=== PATIENT | male | born 1940 | race Two or more races ===

== ENCOUNTER 2017-11-01 11:41 | Inpatient (IN) | payer OTHER ==
[~2017-11-01] VITALS: Ht 162.6 cm; Wt 77.6 kg
[2017-11-01] VITALS (14 sets, daily range): BP systolic 68–109; BP diastolic 36–87
[2017-11-01] MEDS ORDERED: Naloxone 1mg/ml 2ml ONE (12:10)
[2017-11-01] MEDS ORDERED: Naloxone 1mg/ml 2ml IVP ONE (12:15)
[2017-11-01 12:40] LABS: HEMATOCRIT 28.2 % (42.0-52.0); HEMOGLOBIN 9.1 G/DL (14.2-18.0); MEAN CORPUSCULAR VOLUME 82 FL (80-99); PLATELET COUNT 139 K/UL (150-450); RED BLOOD COUNT 3.45 M/UL (4.70-6.10); RED CELL DISTRIBUTION WIDTH 14.4 % (11.6-14.8); WHITE BLOOD COUNT 16.8 K/UL (4.8-10.8)
[2017-11-01 12:51] LABS: ANION GAP 9 mmol/L (5-15); BLOOD UREA NITROGEN 43 mg/dL (7-18); CARBON DIOXIDE 23 MMOL/L (21-32); CHLORIDE 96 MMOL/L (98-107); CREATININE 3.1 MG/DL (0.55-1.30); POTASSIUM 5.1 MMOL/L (3.5-5.1); SODIUM 128 MMOL/L (136-145)
[2017-11-01 13:06] LABS: ALANINE AMINOTRANSFERASE 12 U/L (12-78); ALBUMIN 2.4 G/DL (3.4-5.0); ALBUMIN/GLOBULIN RATIO 0.7 (1.0-2.7); ALKALINE PHOSPHATASE 63 U/L (46-116); ASPARTATE AMINO TRANSFERASE 13 U/L (15-37); BILIRUBIN,TOTAL 0.7 MG/DL (0.2-1.0); CKMB 0.7 NG/ML (0.0-3.6); CREATINE KINASE 104 U/L (26-308)
[2017-11-01 13:06] LABS: APPEARANCE,URINE CLEAR; BILIRUBIN, URINE NEGATIVE (NEGATIVE); GLUCOSE, URINE (UA) NEGATIVE (NEGATIVE); KETONES,URINE NEGATIVE (NEGATIVE); LEUKOCYTE ESTERASE ,URINE 2+ (NEGATIVE); NITRITE,URINE NEGATIVE (NEGATIVE); PH,URINE 5 (4.5-8.0); PROTEIN,URINE 3+ (NEGATIVE); UROBILINOGEN,URINE NORMAL MG/DL (0.0-1.0)
[2017-11-01 13:15] LABS: COLOR,URINE YELLOW
[2017-11-01] MEDS ORDERED: cefTRIAXone 1 GM in NS 55 ML IVPB ONE (13:15)
[2017-11-01] MEDS ORDERED: Calcium Chloride 100mg/ml Vial IVP ONE (13:30)
[2017-11-01] MEDS: DOPamine 400mg/250ml 250 ML IV SCH ×3 (14:15→23:26)
--- NOTE | 2017-11-01 14:39 | Emergency Room Report ---
History of Present Illness General Chief Complaint: Altered Level of Consciousness Source: Family Member Present Illness HPI Patient presents for altered mental status and confusion lethargy Patient's family reports that 2 days ago he was seen by primary physician put on antibiotics and Flomax for possible prostate infection This morning the found the patient more confused lethargic slow to respond and paramedics were summoned Patient here is minimally arousable to physical stimuli After Narcan he did become more awake patient was on codine for pain medicine Otherwise no change in medications recently Patient has vomited 2 times earlier in the morning initially denied any chest pain However toes and of the stay in the emergency room Family reports that he was having heaviness in the chest area Patient has a balloon prosthesis for erectile dysfunction but no change with that recently patient did have recently difficulty with urination Had also previously complaint of flank pain There was no reports of shortness of breath Patient's history of present illness remains limited as the patient was slow to respond cannot give full history upon arrival Allergies: Coded Allergies: No Known Allergies (Unverified , 11/01/17) Patient History Limited by: medical condition Past Medical History: see triage record Pertinent Family History: unable to obtain Reviewed Nursing Documentation: PMH: Agreed, PSxH: Agreed Nursing Documentation-PMH Hx Hypertension: Yes Hx Diabetes: Yes Hx Gastrointestinal Problems: Yes - GI Bleed Review of Systems All Other Systems: limited - Other than the ones mentioned in the history of present illness all others are reviewed however they do stay limited due to the patient's mental status Physical Exam Vital Signs Date Time Temp Pulse Resp B/P (MAP) Pulse Ox O2 Delivery O2 Flow Rate FiO2 11/01/17 11:37 97.2 60 16 72/42 96 Room Air 15.0 11/01/17 13:41 100 Sp02 EP Interpretation: reviewed, normal, other - However extremely hypotensive General Appearance: severe distress - Patient appears ill lethargic slow to respond Head: normocephalic, atraumatic Eyes: bilateral eye PERRL - Two millimeters bilaterally, sluggish reaction ENT: normal pharynx, other - Patient reports decreased hearing Neck: supple Respiratory: crackles - In both lower lobes no obvious retractions Cardiovascular #1: regular rate, rhythm, other - Patient is edematous in the lower abdomen neck area lower legs in the thigh region also appear edematous Gastrointestinal: soft Genitourinary: no CVA tenderness Musculoskeletal: other - Patient is sluggish in response however no obvious focal deficit, Neurologic: other - She has decreased mentation, he does open his to verbal commands, he has no focal deficits on the extremities, however sluggish Skin: no rash, other - Some edema in the lower abdomen and bilateral legs Lymphatic: no adenopathy Procedures Critical Care Time Critical Care Time 70 minutes for initial critical status multiple reevaluation discussion with family and consultants findings concerning for of life-threatening pathology not including any procedural time, Central Line Central Line : Consent: Verbal Central Line Lumen: triple Maximal Sterile Barrier Tech: yes cap, yes mask, yes sterile gown, yes sterile gloves, yes large sterile sheet, yes hand hygiene, yes chlorhexidine prep Central Line Postion: femoral (R) Anesthesia: Lidocaine cc's of anesthesia: 4 Complications: none Central Line Post Position: sutured Attempts: One Patient Tolerated: Well Complications: None Medical Decision Making Diagnostic Impression: Primary Impression: Hypotension Additional Impressions: Septic shock CHF (congestive heart failure) Hypocalcemia Renal failure ER Course Patient is extremely ill upon presentation Hypotensive, altered Patient's CT head does not show any acute disease Presentation does not appear to be in line with acute stroke The patient is also out of any thrombolytic-type criteria as symptoms started earlier yesterday Patient's over timeline X-ray shows pulmonary congestion patient's clinical findings also shows some fluid overload Kidney function is abnormal There are signs of infectious pathology as well CT abdomen pelvis is show any acute pathology this could not be done with contrast given the patient's kidney function Antibiotics are provided Patient continues on BiPAP and requires pressors Patient is also on multiple medications with possible medication reaction Cardiology is notified patient's primary admitting physician was also notified patient remains critical and admitted to ICU Labs Test 11/01/17 12:20 11/01/17 12:50 11/01/17 13:51 White Blood Count 16.8 K/UL (4.8-10.8) Red Blood Count 3.45 M/UL (4.70-6.10) Hemoglobin 9.1 G/DL (14.2-18.0) Hematocrit 28.2 % (42.0-52.0) Mean Corpuscular Volume 82 FL (80-99) Mean Corpuscular Hemoglobin 26.4 PG (27.0-31.0) Mean Corpuscular Hemoglobin Concent 32.3 G/DL (32.0-36.0) Red Cell Distribution Width 14.4 % (11.6-14.8) Platelet Count 139 K/UL (150-450) Mean Platelet Volume 10.0 FL (6.5-10.1) Neutrophils (%) (Auto) % (45.0-75.0) Lymphocytes (%) (Auto) % (20.0-45.0) Monocytes (%) (Auto) % (1.0-10.0) Eosinophils (%) (Auto) % (0.0-3.0) Basophils (%) (Auto) % (0.0-2.0) Differential Total Cells Counted 100 Neutrophils % (Manual) 90 % (45-75) Lymphocytes % (Manual) 3 % (20-45) Monocytes % (Manual) 7 % (1-10) Eosinophils % (Manual) 0 % (0-3) Basophils % (Manual) 0 % (0-2) Band Neutrophils 0 % (0-8) Platelet Estimate Decreased Platelet Morphology Normal Hypochromasia 1+ Anisocytosis 1+ Sodium Level 128 MMOL/L (136-145) Potassium Level 5.1 MMOL/L (3.5-5.1) Chloride Level 96 MMOL/L (98-107) Carbon Dioxide Level 23 MMOL/L (21-32) Anion Gap 9 mmol/L (5-15) Blood Urea Nitrogen 43 mg/dL (7-18) Creatinine 3.1 MG/DL (0.55-1.30) Estimat Glomerular Filtration Rate mL/min (>60) Glucose Level 217 MG/DL (74-106) Lactic Acid Level 1.80 mmol/L (0.66-2.22) Calcium Level 7.0 MG/DL (8.5-10.1) Total Bilirubin 0.7 MG/DL (0.2-1.0) Aspartate Amino Transf (AST/SGOT) 13 U/L (15-37) Alanine Aminotransferase (ALT/SGPT) 12 U/L (12-78) Alkaline Phosphatase 63 U/L (46-116) Total Creatine Kinase 104 U/L (26-308) Creatine Kinase MB 0.7 NG/ML (0.0-3.6) Creatine Kinase MB Relative Index 0.6 Troponin I 0.000 ng/mL (0.000-0.056) Pro-B-Type Natriuretic Peptide 3043 pg/mL (0-125) Total Protein 6.0 G/DL (6.4-8.2) Albumin 2.4 G/DL (3.4-5.0) Globulin 3.6 g/dL Albumin/Globulin Ratio 0.7 (1.0-2.7) Lipase 88 U/L (73-393) Urine Color Yellow Urine Appearance Clear Urine pH 5 (4.5-8.0) Urine Specific [place] 1.020 (1.005-1.035) Urine Protein 3+ (NEGATIVE) Urine Glucose (UA) Negative (NEGATIVE) Urine Ketones Negative (NEGATIVE) Urine Occult Blood Negative (NEGATIVE) Urine Nitrite Negative (NEGATIVE) Urine Bilirubin Negative (NEGATIVE) Urine Urobilinogen Normal MG/DL (0.0-1.0) Urine Leukocyte Esterase 2+ (NEGATIVE) Urine RBC 0 /HPF (0 - 0) Urine WBC 5-10 /HPF (0 - 0) Urine Squamous Epithelial Cells Occasional /LPF Urine Amorphous Sediment Few /LPF (NONE) Urine Bacteria Few /HPF (NONE) Urine Mucus /LPF (NONE/OCC) Arterial Blood pH 7.370 (7.350-7.450) Arterial Blood Partial Pressure CO2 38.3 mmHg (35.0-45.0) Arterial Blood Partial Pressure O2 111.7 mmHg (75.0-100.0) Arterial Blood HCO3 21.8 mmol/L (22.0-26.0) Arterial Blood Oxygen Saturation 97.8 % (92.0-98.0) Arterial Blood Base Excess -3.0 Bryce Test Positive EKG Diagnostic Results Rate: bradycardiac Rhythm: other ST Segments: other - Nonspecific ST/T-wave changes Rhythm Strip Diag. Results EP Interpretation: yes Rate: 60 Rhythm: NSR, no PVC's, no ectopy Chest X-Ray Diagnostic Results Chest X-Ray Diagnostic Results : Chest X-Ray Ordered: Yes # of Views/Limited/Complete: 1 View Indication: Chest Pain EP Interpretation: Yes Interpretation: no consolidation, no pneumothorax, other - Pulmonary congestion Impression: Other - Pulmonary congestion Electronically Signed by: Wiliam Esposito, CT/MRI/US Diagnostic Results CT/MRI/US Diagnostic Results : Impression CT head: no acute disease CT abdomen pelvis: refer to report for full specific no acute disease Last Vital Signs Date Time Temp Pulse Resp B/P (MAP) Pulse Ox O2 Delivery O2 Flow Rate FiO2 11/01/17 14:03 50 11/01/17 13:41 59 16 Bi-pap 11/01/17 13:41 100 11/01/17 12:38 73/43 15.0 11/01/17 11:37 97.2 Status: improved Disposition: ADMITTED INPATIENT Condition: Critical Referrals: [facility],REFERRING (PCP) WILIAM ESPOSITO D.O. Nov 01, 2017 14:39
[2017-11-01] MEDS ORDERED: METOPROLOL TART50 M1 ORAL (16:28)
[2017-11-01] MEDS ORDERED: PANTOPRAZOLE SO40 MG ORAL (16:28)
[2017-11-01] MEDS ORDERED: TAMSULOSIN HCL0.4 MG ORAL (16:28)
[2017-11-01] MEDS ORDERED: CIPROFLOXACIN500 M2 ORAL (16:28)
[2017-11-01] MEDS ORDERED: ASPIRIN EC81 MG ORAL (16:28)
[2017-11-01] MEDS ORDERED: LANTUS SOL100 UNIT/1 SUBQ (16:28)
[2017-11-01] MEDS ORDERED: AMLODIPINE BESYL5 MG ORAL ×2 (16:28→16:37)
[2017-11-01] MEDS ORDERED: LIPITOR80 MG ORAL (16:37)
[2017-11-01] MEDS ORDERED: GABAPENTIN100 MG ORAL (16:37)
[2017-11-01] MEDS ORDERED: ADALAT20 MG ORAL (16:37)
[2017-11-01] MEDS ORDERED: LISINOPRIL40 MG ORAL (16:37)
[2017-11-01] MEDS ORDERED: OMEPRAZOLE40 M1 ORAL (16:37)
[2017-11-01] MEDS ORDERED: RANEXA500 MG ORAL (16:37)
[2017-11-01] MEDS ORDERED: CLOPIDOGREL75 MG ORAL (16:37)
[2017-11-01] MEDS ORDERED: ACETAMINOPHEN-1 EAC1 ORAL (16:37)
[2017-11-01] MEDS ORDERED: PROAIR HFA8.5 GM INH (16:37)
[2017-11-01] MEDS ORDERED: HYDROCHLOROTH12.5 M2 ORAL (16:37)
[2017-11-01] MEDS ORDERED: METFORMIN HCL1000 M1 ORAL (16:37)
[2017-11-01] MEDS ORDERED: Levophed 4mg/4mL Inj IV ONE (16:53)
[2017-11-01] MEDS: Albuterol 90mcg Inhaler 8gm INH SCH (22:00)
[2017-11-01] MEDS ORDERED: Tylenol #3 tab (300mg/30mg) ORAL PRN (22:00)
[2017-11-01] MEDS: Levemir Flexpen SUBQ SCH (23:18)
[2017-11-01] MEDS: NovoLOG Insulin Flexpen SUBQ SCH (23:19)
[2017-11-02] VITALS (53 sets, daily range): BP systolic 87–121; BP diastolic 32–68
[2017-11-02] MEDS: Sodium Chloride 500ML 500 ML IV SCH ×3 (02:08→22:39)
[2017-11-02] MEDS: Albuterol 90mcg Inhaler 8gm INH SCH ×4 (05:37→21:45)
[2017-11-02 06:11] LABS: HEMATOCRIT 28.1 % (42.0-52.0); HEMOGLOBIN 9.2 G/DL (14.2-18.0); MEAN CORPUSCULAR VOLUME 81 FL (80-99); PLATELET COUNT 159 K/UL (150-450); RED BLOOD COUNT 3.46 M/UL (4.70-6.10); RED CELL DISTRIBUTION WIDTH 14.1 % (11.6-14.8); WHITE BLOOD COUNT 15.6 K/UL (4.8-10.8)
[2017-11-02] MEDS: NovoLOG Insulin Flexpen SUBQ SCH ×3 (06:32→20:32)
[2017-11-02 06:35] LABS: ALANINE AMINOTRANSFERASE 17 U/L (12-78); ALBUMIN 2.6 G/DL (3.4-5.0); ALBUMIN/GLOBULIN RATIO 0.6 (1.0-2.7); ALKALINE PHOSPHATASE 96 U/L (46-116); ANION GAP 12 mmol/L (5-15); ASPARTATE AMINO TRANSFERASE 15 U/L (15-37); BILIRUBIN,TOTAL 0.4 MG/DL (0.2-1.0); BLOOD UREA NITROGEN 60 mg/dL (7-18); CALCIUM 7.8 MG/DL (8.5-10.1); CARBON DIOXIDE 21 MMOL/L (21-32); CHLORIDE 93 MMOL/L (98-107); CREATININE 4.7 MG/DL (0.55-1.30); POTASSIUM 4.5 MMOL/L (3.5-5.1); SODIUM 126 MMOL/L (136-145)
[2017-11-02] MEDS: DOPamine 400mg/250ml 250 ML IV SCH (08:52)
--- NOTE | 2017-11-02 08:57 | Diagnostic Imaging Report ---
Indications: Altered mental status Technique: Spiral acquisitions obtained through the brain. Angled axial and coronal 5 x 5 mm slices were reconstructed. Total dose length product 1404.07 mGycm. CTDI vol(s) 70.38 mGy. Dose reduction achieved using automated exposure control Comparison: None. Findings: No acute intracranial hemorrhage or edema. No mass effect or midline shift. Normal carbajal-white differentiation. There is age-related enlargement of the ventricles and extra-axial CSF spaces. There are old bilateral basal ganglia lacunar infarcts. There is minimal periventricular deep white matter low attenuation. There is extensive ethmoid sinus disease and less extensive sphenoid sinus opacification. The mastoids are clear. There is a calvarium is intact. Impression: Chronic and age-related changes, including old basal ganglia lacunar infarcts Negative for acute intracranial bleed or mass effect This agrees with the preliminary interpretation provided overnight by [facility] teleradiology service. The CT scanner at [facility] is accredited by the [employer] and the scans are performed using protocols designed to limit radiation exposure to as low as reasonably achievable to attain images of sufficient resolution adequate for diagnostic evaluation.
--- NOTE | 2017-11-02 09:05 | Diagnostic Imaging Report ---
Indication: Abdominal pain Technique: Spiral acquisitions obtained through the abdomen and pelvis. No oral contrast utilized, per emergency room physician request No IV contrast utilized, per referring physician request.. Multiplanar reconstructions were generated. Total dose length product 952 mGycm. CTDIvol(s) 19.5 mGy. Dose reduction achieved using automated exposure control Comparison: None Findings: The appendix is normal. There is colonic diverticulosis. No evidence of diverticulitis. No small bowel distention. No free or loculated intraperitoneal fluid is evident. Distal esophagus, stomach, duodenum are unremarkable. Lack of IV contrast limits assessment of the solid organs. There is edema of the gallbladder wall and slight infiltration of the pericholecystic fat. No gallstones are visualized, however. No biliary ductal dilatation. The liver demonstrates a calcification in the capsule adjacent to the left portal vein. It is equivocally mildly enlarged. The pancreas, spleen, adrenals are unremarkable. The kidneys demonstrate perinephric fat stranding and considerable arterial calcification. No focal abnormality or hydronephrosis. No retroperitoneal or mesenteric mass or adenopathy. No pelvic mass or adenopathy. The bladder is nearly empty, containing a Tellez catheter. Small amount of air within the bladder is presumably related to Tellez catheterization. The prostate is somewhat prominent. There is a reservoir for penile prosthesis. The lung bases demonstrate small bilateral pleural effusions, considerable atelectasis and interstitial septal thickening. The heart is enlarged. There are coronary artery calcifications. The bones demonstrate degenerative spondylosis changes. Impression: Gallbladder wall edema and pericholecystic stranding, without CT evidence of cholelithiasis. Findings are concerning for acute cholecystitis, either acalculous or due to occult calculi. Recommend sonographic correlation Bilateral basilar pulmonary parenchymal atelectasis and bilateral pleural effusions. Generalized interstitial septal thickening is concerning for pulmonary edema Cardiomegaly Diverticulosis. No evidence of diverticulitis. Normal: Tellez catheter Penile prosthesis reservoir noted in the pelvis Nonspecific bilateral perinephric fat stranding, significance indeterminate although suspect chronic Borderline cardiomegaly This agrees with the preliminary interpretation provided overnight by [facility] service. The CT scanner at [facility] is accredited by the [employer] and the scans are performed using protocols designed to limit radiation exposure to as low as reasonably achievable to attain images of sufficient resolution adequate for diagnostic evaluation.
--- NOTE | 2017-11-02 09:06 | Diagnostic Imaging Report ---
Indication: Chest pain Technique: One view of the chest Comparison: none Findings: Heart is enlarged. There is diffuse bilateral pulmonary interstitial edema with some airspace consolidation as well. Small pleural effusions seen on recent CT scan are not evident on plain radiograph Impression: Cardiomegaly with congestive heart failure
[2017-11-02] MEDS: Aspirin EC 81mg tab ORAL SCH (09:13)
[2017-11-02] MEDS: Ranolazine 500mg tab ORAL SCH ×2 (09:14→20:30)
[2017-11-02] MEDS ORDERED: NS 500ML ONE ×2 (10:16→18:26)
[2017-11-02] MEDS ORDERED: cefTRIAXone 1 GM in NS 55 ML IVPB SCH (14:00)
--- NOTE | 2017-11-02 14:46 | Infectious Diseases Prog Note ---
Assessment/Plan Assessment/Plan Full consult dictated: A) 1) sepsis, uti, possible cholecystitis, leukocytosis 2) ct noted, arf, chf 3) allergies - negative P) 1) zosyn to cover gu and gi tract 2) check labs 3) check us 4) thank you Subjective Allergies: Coded Allergies: No Known Allergies (Unverified , 11/01/17) Objective Vital Signs Last 24 Hour Vital Signs Date Time Temp Pulse Resp B/P (MAP) Pulse Ox O2 Delivery O2 Flow Rate FiO2 11/02/17 14:00 72 18 96/51 91 Nasal Cannula 4.0 11/02/17 13:30 69 18 105/50 92 Nasal Cannula 4.0 11/02/17 13:00 73 18 92/43 92 Nasal Cannula 4.0 11/02/17 12:30 69 16 96/50 92 Nasal Cannula 4.0 11/02/17 12:00 69 11/02/17 12:00 97.8 91 21 91/39 91 Nasal Cannula 4.0 11/02/17 12:00 91/39 11/02/17 11:30 68 15 90/41 91 Nasal Cannula 4.0 11/02/17 11:00 67 16 99/43 91 Nasal Cannula 4.0 11/02/17 11:00 99/44 11/02/17 10:30 63 18 99/33 92 Nasal Cannula 4.0 11/02/17 10:30 99/33 11/02/17 10:30 99/33 11/02/17 10:00 60 22 105/40 92 Nasal Cannula 4.0 11/02/17 10:00 105/40 11/02/17 10:00 105/40 11/02/17 09:45 67 18 103/45 93 Nasal Cannula 4.0 11/02/17 09:30 68 20 102/44 93 Nasal Cannula 4.0 11/02/17 09:19 Nasal Cannula 11/02/17 09:18 Nasal Cannula 11/02/17 09:15 66 15 102/41 93 Nasal Cannula 4.0 11/02/17 09:00 68 16 104/68 94 Nasal Cannula 4.0 11/02/17 09:00 104/68 11/02/17 09:00 104/68 11/02/17 08:52 102/62 11/02/17 08:52 105/62 11/02/17 08:52 105/62 2 08:45 74 21 102/62 95 Nasal Cannula 4.0 11/02/17 08:30 66 15 103/60 94 Nasal Cannula 4.0 11/02/17 08:15 69 16 101/54 95 Nasal Cannula 4.0 11/02/17 08:00 101/64 11/02/17 08:00 101/68 11/02/17 08:00 98.8 68 15 100/40 94 Nasal Cannula 4.0 11/02/17 08:00 68 11/02/17 07:51 Nasal Cannula 4.0 11/02/17 07:50 96 Nasal Cannula 4.0 11/02/17 07:45 64 19 103/66 95 Nasal Cannula 4.0 11/02/17 07:30 68 20 112/64 98 Nasal Cannula 4.0 11/02/17 07:15 67 18 108/66 96 Nasal Cannula 4.0 11/02/17 07:00 69 21 105/62 95 Nasal Cannula 4.0 11/02/17 07:00 105/62 11/02/17 07:00 105/62 11/02/17 06:00 102/43 11/02/17 06:00 68 14 102/43 95 Nasal Cannula 4.0 11/02/17 05:35 101/43 11/02/17 05:30 68 16 100/54 93 Nasal Cannula 4.0 11/02/17 05:00 69 16 101/43 94 Nasal Cannula 4.0 11/02/17 05:00 101/43 11/02/17 04:30 67 12 94/58 94 Nasal Cannula 4.0 11/02/17 04:00 98.7 67 16 105/44 97 Nasal Cannula 4.0 11/02/17 04:00 67 11/02/17 04:00 105/44 11/02/17 03:30 75 16 115/48 97 Nasal Cannula 4.0 11/02/17 03:00 76 16 112/45 97 Nasal Cannula 4.0 11/02/17 03:00 112/45 11/02/17 02:30 78 16 112/44 94 Nasal Cannula 4.0 11/02/17 02:00 121/45 11/02/17 02:00 80 14 121/45 96 Nasal Cannula 4.0 11/02/17 01:30 71 16 97/41 94 Nasal Cannula 4.0 11/02/17 01:00 98/45 2 01:00 72 16 98/45 94 Nasal Cannula 4.0 11/02/17 00:30 63 14 87/43 92 Nasal Cannula 4.0 11/02/17 00:00 61 11/02/17 00:00 98/47 11/02/17 00:00 97.8 62 19 98/47 94 Nasal Cannula 4.0 11/01/17 23:30 64 17 102/48 90 Nasal Cannula 4.0 11/01/17 23:26 108/51 218 23:24 108/51 18 23:00 61 14 97/47 93 Nasal Cannula 4.0 11/01/17 22:30 64 12 94/59 94 Nasal Cannula 4.0 11/01/17 22:00 69 16 103/46 93 Nasal Cannula 4.0 11/01/17 22:00 103/46 11/01/17 21:30 66 16 86/55 95 Nasal Cannula 4.0 11/01/17 21:08 86/55 11/01/17 21:08 91/49 11/01/17 21:00 67 13 91/49 95 Nasal Cannula 2.0 11/01/17 20:30 65 13 96/40 94 Nasal Cannula 2.0 11/01/17 20:00 61 218 20:00 87/36 218 20:00 61 10 87/36 91 Nasal Cannula 2.0 11/01/17 19:30 73 12 94/36 98 Bi-pap 50 218 19:00 105/41 2/18 18:55 97.4 72 21 98/45 100 Bi-pap 50 2/18 18:30 97.2 74 13 116/41 100 Bi-pap 15.0 50 2/18 18:20 116/41 23/18 18:05 99/39 2/3/18 18:00 109/87 2/18 18:00 74 13 109/87 100 Bi-pap 50 2/18 17:55 101/43 2/3/18 17:50 94/40 2/3/18 17:45 99/38 2/3/18 17:40 97/41 2//18 17:35 92/43 11/01/17 17:30 93/45 11/01/17 17:25 92/49 11/01/17 17:20 100/42 11/01/17 17:15 93/40 11/01/17 17:10 94/42 11/01/17 17:05 74/51 11/01/17 17:00 83/34 11/01/17 16:51 71 19 98 Facial 50 11/01/17 16:45 86/43 11/01/17 16:30 89/37 11/01/17 16:30 73 13 89/37 94 Bi-pap 50 11/01/17 16:15 92/42 11/01/17 16:00 90/52 11/01/17 15:45 84/44 11/01/17 15:30 84/41 11/01/17 15:15 86/43 11/01/17 15:00 83/39 11/01/17 14:50 50 20 98 Facial 50 11/01/17 14:45 71/36 Height (Feet): 5 Height (Inches): 4.00 Weight (Pounds): 187 Microbiology Date/Time Source Procedure Growth Status 11/01/17 12:50 Nasal Nares Influenza Types A,B Antigen (JUNG) - Final Complete Laboratory Tests Test 11/01/17 16:31 11/01/17 20:30 11/02/17 05:55 Arterial Blood pH 7.290 (7.350-7.450) 7.353 (7.350-7.450) Arterial Blood Partial Pressure CO2 40.0 mmHg (35.0-45.0) 35.2 mmHg (35.0-45.0) Arterial Blood Partial Pressure O2 51.0 mmHg (75.0-100.0) L 62.2 mmHg (75.0-100.0) L Arterial Blood HCO3 19.1 mmol/L (22.0-26.0) L 19.1 mmol/L (22.0-26.0) L Arterial Blood Oxygen Saturation 81.7 % (92.0-98.0) L 91.8 % (92.0-98.0) L Arterial Blood Base Excess -6.8 -5.7 Bryce Test Positive Positive White Blood Count 15.6 K/UL (4.8-10.8) H Red Blood Count 3.46 M/UL (4.70-6.10) L Hemoglobin 9.2 G/DL (14.2-18.0) L Hematocrit 28.1 % (42.0-52.0) L Mean Corpuscular Volume 81 FL (80-99) Mean Corpuscular Hemoglobin 26.6 PG (27.0-31.0) L Mean Corpuscular Hemoglobin Concent 32.8 G/DL (32.0-36.0) Red Cell Distribution Width 14.1 % (11.6-14.8) Platelet Count 159 K/UL (150-450) Mean Platelet Volume 10.6 FL (6.5-10.1) H Neutrophils (%) (Auto) % (45.0-75.0) Lymphocytes (%) (Auto) % (20.0-45.0) Monocytes (%) (Auto) % (1.0-10.0) Eosinophils (%) (Auto) % (0.0-3.0) Basophils (%) (Auto) % (0.0-2.0) Differential Total Cells Counted 100 Neutrophils % (Manual) 91 % (45-75) H Lymphocytes % (Manual) 5 % (20-45) L Monocytes % (Manual) 4 % (1-10) Eosinophils % (Manual) 0 % (0-3) Basophils % (Manual) 0 % (0-2) Band Neutrophils 0 % (0-8) Platelet Estimate Adequate Platelet Morphology Normal Hypochromasia 1+ Sodium Level 126 MMOL/L (136-145) L Potassium Level 4.5 MMOL/L (3.5-5.1) Chloride Level 93 MMOL/L (98-107) L Carbon Dioxide Level 21 MMOL/L (21-32) Anion Gap 12 mmol/L (5-15) Blood Urea Nitrogen 60 mg/dL (7-18) H Creatinine 4.7 MG/DL (0.55-1.30) #H Estimat Glomerular Filtration Rate mL/min (>60) Glucose Level 237 MG/DL (74-106) H Calcium Level 7.8 MG/DL (8.5-10.1) L Ionized Calcium (Measured) 1.03 mmol/L (1.10-1.35) L Total Bilirubin 0.4 MG/DL (0.2-1.0) Aspartate Amino Transf (AST/SGOT) 15 U/L (15-37) Alanine Aminotransferase (ALT/SGPT) 17 U/L (12-78) Alkaline Phosphatase 96 U/L (46-116) Total Protein 6.6 G/DL (6.4-8.2) Albumin 2.6 G/DL (3.4-5.0) L Globulin 4.0 g/dL Albumin/Globulin Ratio 0.6 (1.0-2.7) L Current Medications Medications (Trade) Dose Ordered Sig/Marie Route PRN Reason Start Time Stop Time Status Last Admin Dose Admin Acetaminophen/ Codeine Phosphate (Tylenol #3) 2 tab Q6H PRN ORAL For Pain 11/01/17 22:00 11/08/17 21:59 Albuterol Sulfate (Proventil MDI) 1 puff Q6H INH 11/01/17 22:00 12/01/17 21:59 11/02/17 13:01 Aspirin (Ecotrin) 81 mg DAILY ORAL 11/02/17 09:00 12/02/17 08:59 11/02/17 09:13 Atorvastatin Calcium (Lipitor) 80 mg QHS ORAL 11/02/17 21:00 12/02/17 20:59 Ceftriaxone Sodium 1 gm/ Sodium Chloride 55 ml @ 110 mls/hr Q24H IVPB 11/02/17 14:00 11/09/17 13:59 11/02/17 14:19 Chlorhexidine Gluconate (Amna-Hex 2%) 1 applic DAILY@2000 TOPIC 11/02/17 20:00 12/02/17 19:59 Clopidogrel Bisulfate (Plavix) 75 mg DAILY ORAL 11/02/17 09:00 12/02/17 08:59 11/02/17 09:13 Dextrose (Dextrose 50%) STAT PRN IV Hypoglycemia 11/01/17 22:30 12/01/17 22:29 Dopamine HCl/ Dextrose 250 ml @ 0 mls/hr Q24H IV 11/01/17 22:00 12/01/17 21:59 11/02/17 08:52 Gabapentin (Neurontin) 100 mg BID ORAL 11/02/17 09:00 12/02/17 08:59 11/02/17 09:13 Insulin Aspart (NovoLOG) BEFORE MEALS AND HS SUBQ 11/02/17 06:30 12/02/17 06:29 11/02/17 06:32 Insulin Detemir (Levemir) 15 units BEDTIME SUBQ 11/01/17 21:00 12/01/17 20:59 11/01/17 23:18 Norepinephrine Bitartrate 4 mg/ Dextrose 250 ml @ 0 mls/hr Q24H IV 11/01/17 22:00 12/01/17 21:59 11/02/17 05:35 Ondansetron HCl (Zofran) 4 mg Q6H PRN IVP Nausea & Vomiting 11/02/17 02:00 12/02/17 01:59 11/02/17 14:29 Ranolazine (Ranexa ER 500mg) 500 mg EVERY 12 HOURS ORAL 11/02/17 09:00 12/02/17 08:59 11/02/17 09:14 Sodium Chloride 500 ml @ 50 mls/hr Q10H IV 11/02/17 02:00 12/02/17 01:59 11/02/17 12:31 CYRUS ELISE Nov 02, 2017 14:46
[2017-11-02] MEDS: Piperacillin/Tazobactam 3.375 GM in NS 110 ML IVPB SCH (16:13)
[2017-11-02] MEDS ORDERED: Tubing IV Secondary IV ONE (18:26)
[2017-11-02] MEDS ORDERED: Dyna-Hex 2% Top Sol 2oz TOPIC SCH (20:00)
[2017-11-02] MEDS: Levemir Flexpen SUBQ SCH (20:31)
[2017-11-02] MEDS ORDERED: Atorvastatin 80mg tab ORAL SCH (21:00)
[2017-11-02] MEDS ORDERED: Levemir Flexpen SUBQ SCH (21:00)
[2017-11-02] MEDS ORDERED: Sodium Chloride 500ML 500 ML IV ONE ×2 (21:30→23:15)
--- NOTE | 2017-11-02 23:05 | History and Physical Report ---
DATE OF ADMISSION: 11/01/2017 HISTORY OF PRESENT ILLNESS: This is a 77-year-old male who presented to the hospital with confusion and lethargy. Several days ago, the patient was seen by his PCP and started on antibiotics and Flomax for a possible prostate infection. The patient was noted to be confused and lethargic. Paramedics were called and he was brought to the hospital. In the ER here at [facility], he was given Narcan with improvement in his mental status. The patient also admitted to having chest discomfort. PAST MEDICAL HISTORY: The patient's past medical history is notable for penile prosthesis per ED. PAST SURGICAL HISTORY: Previous surgeries, the patient declines. MEDICATIONS: At this time, the patient unable to recall his home medications. His present medications include insulin, aspirin, Plavix, Neurontin, Ranexa. REVIEW OF SYSTEMS: The patient denies any headaches, hematemesis, melena, hematochezia, night sweats, or weight loss. PHYSICAL EXAMINATION: GENERAL: Reveals an obese 77-year-old male. VITAL SIGNS: Blood pressure 105/60, heart rate 70, respirations are 18, he is afebrile, and O2 saturation 95% on 2 L of oxygen. HEENT: Unremarkable. LUNGS: Shows clear breath sounds bilaterally. HEART: Heart sounds normal. ABDOMEN: Soft. EXTREMITIES: There is no edema. NEUROLOGIC: Nonfocal. LABORATORY DATA: Lab testing shows white count 27028, hemoglobin 11.2, platelet count is normal. Creatinine 4.7, BUN 60, glucose 237. Lactic acid is 1.8. Albumin 2.6. IMPRESSION: 1. Renal failure. 2. Septic shock. 3. Altered mental status. 4. Urinary tract infection. 5. Hyponatremia. 6. Malnutrition, moderate. 7. . 8. Diabetes mellitus. DISCUSSION: Admitted to the hospital. The patient has been on pressors. We will hold all antihypertensives. We will resume diabetes monitoring, IV antibiotics. We will consult Urology and Infectious Diseases as well as Cardiology. We will follow as shake loader and enforcement safety officer. IV fluids to be given. We will follow carefully. Robles Jones M.D. DR: Cookie JOB#: [id number] CC:
[2017-11-03] VITALS (18 sets, daily range): BP systolic 108–150; BP diastolic 30–71
[2017-11-03] MEDS ORDERED: Hydromorphone 0.5mg/0.5ml inj IVP PRN ×2 (00:15→12:15)
[2017-11-03] MEDS: Sodium Chloride 500ML 500 ML IV SCH ×3 (00:36→11:22)
[2017-11-03] MEDS: Albuterol 90mcg Inhaler 8gm INH SCH ×3 (01:25→14:00)
--- NOTE | 2017-11-03 02:00 | Consultation ---
DATE OF CONSULTATION: 11/02/2017 INFECTIOUS DISEASES CONSULTATION CONSULTING PHYSICIAN: Nahomy Young M.D. REFERRING PHYSICIAN: Robles Jones M.D. REASON FOR CONSULTATION: Sepsis, shock, UTI, possible cholecystitis. CHIEF COMPLAINT: The patient's chief complaint coming into the hospital is sepsis and shock. HISTORY OF PRESENT ILLNESS: This is a 77-year-old male, who comes to the [facility] and was noted to have low blood pressure systolic in 80s and elevated white count. The patient likely in septic shock. He is in the ICU. He also noted to be in acute renal failure requiring dopamine. The patient's workup shows that he has positive urinalysis, could have urinary tract infection with sepsis and shock, but also the patient has abdominal discomfort and distention. CT scan of abdomen and pelvis showed the following. It showed gallbladder wall edema with pericholecystic stranding. Findings are concerning for acute cholecystitis. Infectious Diseases consultation requested. The patient was placed on Zosyn to cover UTI and cholecystitis. The patient currently is in ICU with a Tellez, renal failure, and on dopamine for renal perfusion. REVIEW OF SYSTEMS: CONSTITUTIONAL: The patient has generalized weakness and fatigue. He is alert and responsive. He has no fevers. He is on dopamine. HEAD AND NECK: No thrush or dysphagia. CARDIAC: No chest pain. GASTROINTESTINAL: He has abdominal distention and discomfort. GENITOURINARY: He has Tellez and decreased urine output. PULMONARY: No congestion, shortness of breath, hemoptysis, or secretions. SKIN: No rashes or itching. EXTREMITIES: No extremity pain. NEUROLOGIC: No seizures. No mention of weight loss, night sweats, or fevers. PAST MEDICAL HISTORY: The patient's past medical history includes the history of the following, hypertension, diabetes. He also has gastrointestinal bleed. He also has anemia at this time. He has also had renal failure, elevated creatinine, decreased urine output. He is hyponatremic. MEDICATIONS: Upon reviewing the MAR, he is on the following medications. He is on Lipitor, he is on Ecotrin, Plavix, Neurontin, he is on insulin, he is on Zofran, he is on sodium chloride, dextrose, he is on acetaminophen, he is on albuterol, norepinephrine, which was stopped. He is on dopamine currently for renal perfusion and renal dosing. He is on insulin. The patient was placed on Zosyn, IV antibiotics. I will discontinue Rocephin. ALLERGIES: No known drug allergies. SOCIAL HISTORY: Negative for smoking, alcohol, or drug abuse. FAMILY HISTORY: Noncontributory. Negative for exposure was cancer allergies. PHYSICAL EXAMINATION: VITAL SIGNS: Temperature is 97.8 degrees, pulse rate 91, respiratory rate 18, blood pressure 96/51, O2 saturation 91% to 92% on 4 liters nasal cannula. GENERAL: The patient is alert and responsive, in no acute distress. Maybe mild shortness of breath. HEAD AND NECK: Oral exam, no thrush. Eye exam, no icterus. Normocephalic. No facial droop. Neck is supple. LUNGS: Few bilateral rhonchi and crackles. No definite rales. HEART: Regular. No gallop or murmur. ABDOMEN: Somewhat distended. No rebound. Positive bowel sounds. SKIN: No rash. MUSCULOSKELETAL: No effusions. LINES: Line sites is without phlebitis. PERIPHERAL VASCULAR: No gangrene. He has some edema in the extremities. NEUROLOGIC: Generalized weakness. Responsive. He is alert and oriented x3. GENITOURINARY: He has a Tellez. Urine is cloudy. LABORATORY DATA: Laboratory data is as follows. White count 15.6, hemoglobin 9.2. White count is as high as 16.8, platelet count . The patient's creatinine is 4.7 and sodium 126. UA had 5 to 10 white blood cells, 2+ leukocyte esterase. CT scan of the abdomen and pelvis showed gallbladder wall edema with pericholecystic stranding concerning for acute cholecystitis. The patient also had parenchymal atelectasis and effusions. The patient also has diverticulosis. He has penile prosthesis and also bilateral perinephric fat stranding. Chest x-ray showed cardiomegaly with CHF. Ultrasound of the abdomen has been ordered. Cultures are pending. Urine culture and blood culture are both ordered. Influenza screen is negative. ASSESSMENT AND PLAN: 1. The patient has sepsis and shock. He came in with systolic blood pressure in the 80s with elevated white count. The patient also came in what looks like altered mental status and confusion initially, he is alert at this time. Continue antibiotics. We will change the patient to Zosyn and discussed with pharmacy about dosing for renal failure. I will continue Zosyn to cover urinary tract infection and also possibly cholecystitis with anaerobic coverage, initially gram-negative coverage. Continue Zosyn to cover urinary tract infection, sepsis, shock, leukocytosis, and also possible cystitis. Check followup labs and chest x-ray. Check ultrasound. The patient may need HIDA scan. Consider Renal evaluation and Gastrointestinal evaluation and possible surgery evaluation. Continue antibiotics. Continue supportive care. 2. Acute renal failure, anemia, Tellez, and intensive care unit care. 3. Diabetes. 4. Hypertension. 5. Possible hyperlipidemia. He is on Lipitor. 6. Hyponatremia. 7. No known allergies. 8. Social history negative. 9. Family history noncontributory. 10. MAR was noted. 11. Case was discussed with RN. 12. Continue treatment per primary consultants. 13. Case was discussed with the patient's family. 14. I will follow. Nahomy Young M.D. DR: Bekah JOB#: [id number] CC: JANNET
--- NOTE | 2017-11-03 02:45 | Progress Note ---
DATE: 11/02/2017 CRITICAL CARE SUBJECTIVE: The patient remains in the intensive care unit. He remains with marginal blood pressure readings and on pressor support. OBJECTIVE: VITAL SIGNS: Blood pressure 99/43, pulse 78, respirations 18, and oxygen saturation on 4 liters 92%. LUNGS: Coarse breath sounds. Scattered rhonchi. HEART: Regular rhythm and rate. Normal S1, S2 with a fourth heart sound. ABDOMEN: Distended. No guarding or rebound. EXTREMITIES: Trace dependent edema. LABORATORY AND DIAGNOSTIC DATA: CAT scan of the abdomen yesterday revealed gallbladder wall edema and pericholecystic stranding. A 2D echocardiogram was read today, notable for normal ejection fraction. Chest x-ray yesterday revealed pulmonary edema and cardiomegaly. Sodium 126, potassium 4.5, chloride 93, bicarb 21, BUN 60, and creatinine 4.7. White count 15.6 and hemoglobin 9.2. ABG yesterday pH 7.35, pCO2 35, and pO2 62. IMPRESSION: 1. Sepsis with shock. 2. Possible acute cholecystitis. 3. Noncardiogenic pulmonary edema. 4. Acute renal failure. 5. Toxic and metabolic encephalopathies. 6. Remains critical and guarded. 7. Hyponatremia. 8. Hypochloremia PLAN: 1. Taper pressors. 2. Continue hydration. 3. No diuretics presently. 4. Antibiotics per Infectious Disease desktop support consultant. 5. Respiratory hygiene. 6. The patient requires intensive care unit care and is at high risk. Gilmer Downing M.D. DR: GE JOB#: [id number] CC:
[2017-11-03 06:14] LABS: HEMATOCRIT 29.4 % (42.0-52.0); HEMOGLOBIN 9.8 G/DL (14.2-18.0); MEAN CORPUSCULAR VOLUME 81 FL (80-99); PLATELET COUNT 179 K/UL (150-450); RED BLOOD COUNT 3.63 M/UL (4.70-6.10); RED CELL DISTRIBUTION WIDTH 14.3 % (11.6-14.8); WHITE BLOOD COUNT 12.7 K/UL (4.8-10.8)
[2017-11-03] MEDS: NovoLOG Insulin Flexpen SUBQ SCH ×4 (06:16→21:00)
[2017-11-03 06:37] LABS: ALANINE AMINOTRANSFERASE 16 U/L (12-78); ALBUMIN 2.6 G/DL (3.4-5.0); ALBUMIN/GLOBULIN RATIO 0.6 (1.0-2.7); ALKALINE PHOSPHATASE 96 U/L (46-116); ANION GAP 13 mmol/L (5-15); ASPARTATE AMINO TRANSFERASE 14 U/L (15-37); BILIRUBIN,TOTAL 0.4 MG/DL (0.2-1.0); BLOOD UREA NITROGEN 61 mg/dL (7-18); CALCIUM 7.4 MG/DL (8.5-10.1); CARBON DIOXIDE 20 MMOL/L (21-32); CHLORIDE 93 MMOL/L (98-107); CREATININE 5.6 MG/DL (0.55-1.30); POTASSIUM 4.5 MMOL/L (3.5-5.1); SODIUM 125 MMOL/L (136-145)
[2017-11-03] MEDS: Aspirin EC 81mg tab ORAL SCH (09:43)
[2017-11-03] MEDS: Ranolazine 500mg tab ORAL SCH ×2 (09:43→21:01)
[2017-11-03] MEDS: Piperacillin/Tazobactam 3.375 GM in NS 110 ML IVPB SCH ×2 (09:44→21:00)
--- NOTE | 2017-11-03 10:00 | Consultation ---
DATE OF CONSULTATION: 11/01/2017 CARDIOLOGY CONSULTATION CONSULTING PHYSICIAN: Gilmer Downing M.D. REQUESTING PHYSICIAN: Robles Jones M.D. REASON FOR CONSULTATION: Shock and congestive heart failure. HISTORY OF PRESENT ILLNESS: The patient was seen in the emergency room where he presented with confusion, lethargy, and altered mentation. Family members report this began 2 days ago and the patient was started on antibiotics for a prostate infection. The symptoms progressed and today the patient was confused and lethargic. He was minimally arousable to physical stimuli. The patient apparently has been on codeine for pain control and did respond to Narco. The patient has had abdominal pain, nausea, and vomiting. He also noted some heaviness in his chest. PAST MEDICAL HISTORY: Includes hypertension, erectile dysfunction with balloon prosthesis, type 2 diabetes mellitus, and history of GI bleeding. MEDICATIONS: Prior to admission, reviewed and reconciled. ALLERGIES: None. SOCIAL HISTORY: Negative for smoking, alcohol, or substance abuse. FAMILY HISTORY: Noncontributory. REVIEW OF SYSTEMS: Not obtainable from the patient at this time. Pertinent data from family members as outlined above. PHYSICAL EXAMINATION: VITAL SIGNS: Blood pressure 72/42, heart rate 60, respiratory rate 16, and afebrile. HEENT: Normocephalic, atraumatic. Conjunctivae pink. Sclerae are anicteric. Oropharynx clear. Mucous membranes dry. NECK: Supple. LUNGS: With coarse breath sounds and rales. CARDIAC: Regular rhythm and rate. Normal S1, S2 with no murmur. ABDOMEN: Soft, distended with ascites. EXTREMITIES: With edema. There is a central line noted in the right femoral region. NEUROLOGIC: Reveals symmetric strength. LABORATORY AND DIAGNOSTIC DATA: White count is 16.8 and hemoglobin 9.1. Chest x-ray with pulmonary venous congestion and cardiomegaly. EKG with sinus rhythm and nonspecific ST-T change. Sodium is 128, potassium 5.1, chloride 96, bicarbonate 23, BUN 43, and creatinine 3.1. Albumin 3.4. Urinalysis with 5 to 10 white cells. ABG, 7.37, 38, and 111. IMPRESSION: 1. Sepsis with shock. 2. Acute diastolic congestive heart failure. 3. Renal failure, possibly acute. 4. History of type 2 diabetes mellitus. 5. History of hypertension. 6. Toxic and metabolic encephalopathies. 7. Condition is critical. 8. Prognosis is guarded. PLAN: The patient is already pancultured with central venous access obtained. Volume resuscitation in progress. We will likely need pressors. BiPAP support. Broad-spectrum antibiotics. Imaging of the abdomen is pending. Echocardiogram is pending. We will follow with you during this hospital course. Gilmer Downing M.D. DR: Luis JOB#: [id number] CC:
--- NOTE | 2017-11-03 10:31 | Pulmonology Progress Note ---
Assessment/Plan Assessment/Plan 1. Renal failure. 2. Septic shock. 3. Altered mental status. 4. Urinary tract infection. 5. Hyponatremia. 6. Malnutrition, moderate. 7. Possible cholecystitis 8. Diabetes mellitus. DISCUSSION: Off pressors now; continue to hold all antihypertensives. I will resume diabetes monitoring, IV antibiotics. I will follow as clin nurse spec and mixing supervisor. IV fluids to be given. Await surgical opinion regarding possible cholecystitis OK to transfer out of ICU Subjective Interval Events: Feeling better; on low flow O2; saturations low 90's Constitutional: Reports: no symptoms HEENT: Repors: no symptoms Respiratory: Reports: no symptoms Cardiovascular: Reports: no symptoms Gastrointestinal/Abdominal: Reports: nausea Genitourinary: Reports: no symptoms Neurologic: Reports: no symptoms Allergies: Coded Allergies: No Known Allergies (Unverified , 11/01/17) Objective Last 24 Hour Vital Signs Date Time Temp Pulse Resp B/P (MAP) Pulse Ox O2 Delivery O2 Flow Rate FiO2 11/03/17 10:00 83 19 147/63 84 11/03/17 09:00 89 21 147/58 88 Non-Rebreather 4.0 11/03/17 08:00 90 11/03/17 08:00 98.7 90 21 136/70 89 Nasal Cannula 4.0 11/03/17 07:23 Non-Rebreather 15.0 100 11/03/17 07:23 95 Non-Rebreather 15.0 100 11/03/17 07:22 92 23 Non-Rebreather 15.0 100 11/03/17 07:21 92 22 95 Non-Rebreather 15.0 100 11/03/17 07:21 92 22 95 Non-Rebreather 15.0 100 11/03/17 07:00 91 21 133/65 95 Non-Rebreather 15.0 100 11/03/17 06:00 88 21 144/71 93 Non-Rebreather 15.0 100 11/03/17 05:00 94 21 150/63 93 Non-Rebreather 15.0 100 11/03/17 04:00 90 11/03/17 04:00 97.8 90 17 115/30 92 Non-Rebreather 15.0 100 11/03/17 03:00 84 15 108/51 93 Non-Rebreather 15.0 100 11/03/17 03:00 108/41 11/03/17 02:30 83 16 114/56 93 Non-Rebreather 15.0 100 11/03/17 02:00 115/50 11/03/17 02:00 81 16 114/50 93 Non-Rebreather 15.0 100 11/03/17 01:30 81 16 116/53 93 Non-Rebreather 15.0 100 11/03/17 01:26 80 14 94 Non-Rebreather 15.0 100 11/03/17 01:23 80 14 94 Non-Rebreather 15.0 100 11/03/17 01:00 80 13 117/50 92 Non-Rebreather 15.0 100 11/03/17 01:00 117/50 11/03/17 00:30 98.4 82 16 109/68 93 Non-Rebreather 15.0 100 11/03/17 00:00 134/54 11/03/17 00:00 104 24 134/54 93 Non-Rebreather 15.0 100 11/03/17 00:00 104 11/02/17 23:30 85 18 112/46 93 Non-Rebreather 15.0 100 11/02/17 23:00 118/49 11/02/17 23:00 86 18 118/49 88 Nasal Cannula 4.0 11/02/17 22:30 84 18 105/41 88 Nasal Cannula 4.0 11/02/17 22:00 105/41 11/02/17 22:00 83 18 101/32 90 Nasal Cannula 4.0 11/02/17 21:46 76 17 92 Nasal Cannula 4.0 36 11/02/17 21:43 76 17 92 Nasal Cannula 4.0 36 11/02/17 21:30 78 18 99/43 92 Nasal Cannula 4.0 11/02/17 21:00 78 18 114/53 91 Nasal Cannula 4.0 11/02/17 21:00 99/40 11/02/17 20:30 78 18 110/51 90 Nasal Cannula 4.0 11/02/17 20:00 79 20 113/45 90 Nasal Cannula 4.0 11/02/17 20:00 79 11/02/17 20:00 113/45 11/02/17 19:32 Nasal Cannula 4.0 36 11/02/17 19:31 92 Nasal Cannula 4.0 36 11/02/17 19:30 98.8 78 20 103/46 92 Nasal Cannula 4.0 11/02/17 19:00 76 17 107/54 92 Nasal Cannula 4.0 11/02/17 19:00 107/54 11/02/17 18:30 73 18 104/54 91 Nasal Cannula 4.0 11/02/17 18:00 76 18 116/46 89 Nasal Cannula 4.0 11/02/17 18:00 100/61 11/02/17 17:30 74 15 95/42 88 Nasal Cannula 4.0 11/02/17 17:00 74 18 103/64 92 Nasal Cannula 4.0 11/02/17 17:00 103/64 11/02/17 16:30 73 19 101/56 92 Nasal Cannula 4.0 11/02/17 16:00 101/56 11/02/17 16:00 98.4 72 20 109/59 96 Nasal Cannula 4.0 11/02/17 16:00 72 11/02/17 15:30 71 18 99/35 92 Nasal Cannula 4.0 11/02/17 15:00 77 22 98/60 91 Nasal Cannula 4.0 11/02/17 15:00 98/60 11/02/17 14:30 68 20 94/55 92 Nasal Cannula 4.0 11/02/17 14:00 96/51 11/02/17 14:00 72 18 96/51 91 Nasal Cannula 4.0 11/02/17 13:30 69 18 105/50 92 Nasal Cannula 4.0 11/02/17 13:06 74 16 94 Nasal Cannula 4.0 11/02/17 13:01 74 16 9 Nasal Cannula 4.0 11/02/17 13:00 92/43 11/02/17 13:00 73 18 92/43 92 Nasal Cannula 4.0 11/02/17 12:30 69 16 96/50 92 Nasal Cannula 4.0 11/02/17 12:00 69 11/02/17 12:00 97.8 91 21 91/39 91 Nasal Cannula 4.0 11/02/17 12:00 91/39 11/02/17 11:30 68 15 90/41 91 Nasal Cannula 4.0 11/02/17 11:00 67 16 99/43 91 Nasal Cannula 4.0 11/02/17 11:00 99/44 11/02/17 10:30 63 18 99/33 92 Nasal Cannula 4.0 11/02/17 10:30 33 11/02/17 10:30 Intake and Output 11/02/17 11/03/17 19:00 07:00 Intake Total 1010.600 ml 1374.36 ml Output Total 346 ml 245 ml Balance 664.600 ml 1129.36 ml Intake Oral 130 ml 30 ml IV Total 880.600 ml 1344.36 ml Output Urine Total 46 ml 245 ml Emesis 300 ml General Appearance: no acute distress HEENT: normocephalic Respiratory/Chest: chest wall non-tender, lungs clear Cardiovascular: normal peripheral pulses, normal rate Abdomen: normal bowel sounds Microbiology Date/Time Source Procedure Growth Status 11/01/17 12:20 Blood Blood Culture - Preliminary NO GROWTH AFTER 24 HOURS Resulted 11/01/17 12:10 Blood Blood Culture - Preliminary NO GROWTH AFTER 24 HOURS Resulted 11/01/17 12:50 Nasal Nares Influenza Types A,B Antigen (JUNG) - Final Complete 11/02/17 19:00 Indwelling Cath Urine Culture - Preliminary NO GROWTH Resulted Laboratory Tests 11/03/17 05:00: White Blood Count 12.7H, Red Blood Count 3.63L, Hemoglobin 9.8L, Hematocrit 29.4L, Mean Corpuscular Volume 81, Mean Corpuscular Hemoglobin 26.9L, Mean Corpuscular Hemoglobin Concent 33.2, Red Cell Distribution Width 14.3, Platelet Count 179, Mean Platelet Volume 10.1, Neutrophils (%) (Auto) , Lymphocytes (%) ( Auto) , Monocytes (%) (Auto) , Eosinophils (%) (Auto) , Basophils (%) (Auto) , Sodium Level 125L, Potassium Level 4.5, Chloride Level 93L, Carbon Dioxide Level 20L, Anion Gap 13, Blood Urea Nitrogen 61H, Creatinine 5.6H, Estimat Glomerular Filtration Rate , Glucose Level 108#H, Hemoglobin A1c 10.4H, Lactic Acid Level 1.40, Calcium Level 7.4L, Total Bilirubin 0.4, Aspartate Amino Transf (AST/SGOT) 14L, Alanine Aminotransferase (ALT/SGPT) 16, Alkaline Phosphatase 96, Pro-B-Type Natriuretic Peptide 8925H, Total Protein 7.0, Albumin 2.6L, Globulin 4.4, Albumin/Globulin Ratio 0.6L Current Medications Medications (Trade) Dose Ordered Sig/Marie Route PRN Reason Start Time Stop Time Status Last Admin Dose Admin Acetaminophen/ Codeine Phosphate (Tylenol #3) 2 tab Q6H PRN ORAL For Pain 11/01/17 22:00 11/08/17 21:59 Albuterol Sulfate (Proventil MDI) 1 puff Q6HRT INH 11/03/17 20:00 12/03/17 19:59 11/03/17 07:20 Aspirin (Ecotrin) 81 mg DAILY ORAL 11/02/17 09:00 12/02/17 08:59 11/03/17 09:43 Atorvastatin Calcium (Lipitor) 80 mg QHS ORAL 11/02/17 21:00 12/02/17 20:59 11/02/17 20:30 Chlorhexidine Gluconate (Amna-Hex 2%) 1 applic DAILY@2000 TOPIC 11/02/17 20:00 12/02/17 19:59 11/02/17 20:29 Clopidogrel Bisulfate (Plavix) 75 mg DAILY ORAL 11/02/17 09:00 12/02/17 08:59 11/03/17 09:44 Dextrose (Dextrose 50%) STAT PRN IV Hypoglycemia 11/01/17 22:30 12/01/17 22:29 Dopamine HCl/ Dextrose 250 ml @ 0 mls/hr Q24H IV 11/01/17 22:00 12/01/17 21:59 11/02/17 08:52 Gabapentin (Neurontin) 100 mg BID ORAL 11/02/17 09:00 12/02/17 08:59 11/03/17 09:44 Hydromorphone HCl (Dilaudid) 0.5 mg Q4H PRN IVP For Pain 11/03/17 00:15 11/10/17 00:14 11/03/17 00:17 Insulin Aspart (NovoLOG) BEFORE MEALS AND HS SUBQ 11/02/17 06:30 12/02/17 06:29 11/02/17 20:32 Insulin Detemir (Levemir) 15 units BEDTIME SUBQ 11/01/17 21:00 12/01/17 20:59 11/02/17 20:31 Norepinephrine Bitartrate 4 mg/ Dextrose 250 ml @ 0 mls/hr Q24H IV 11/01/17 22:00 12/01/17 21:59 11/02/17 05:35 Ondansetron HCl (Zofran) 4 mg Q6H PRN IVP Nausea & Vomiting 11/02/17 02:00 12/02/17 01:59 11/02/17 14:29 Piperacillin Sod/ Tazobactam Sod 3.375 gm/Sodium Chloride 110 ml @ 27.5 mls/hr Q12HR IVPB 11/02/17 16:00 11/09/17 15:59 11/03/17 09:44 Ranolazine (Ranexa ER 500mg) 500 mg EVERY 12 HOURS ORAL 11/02/17 09:00 12/02/17 08:59 11/03/17 09:43 Sodium Chloride 500 ml @ 100 mls/hr Q5H IV 11/03/17 02:00 12/03/17 01:59 11/03/17 04:47 Robles Jones MD Nov 03, 2017 10:31
--- NOTE | 2017-11-03 10:35 | Cardiology Report ---
APPROVED REPORT EXAM: Two-dimensional and M-mode echocardiogram with Doppler and color Doppler. INDICATION Congestive Heart Failure M-Mode DIMENSIONS IVSd1.4 (0.7-1.1cm)Left Atrium (MM)5.4 (1.6-4.0cm) LVDd5.6 (3.5-5.6cm)Aortic Root2.9 (2.0-3.7cm) PWd1.3 (0.7-1.1cm)Aortic Cusp Exc.2.0 (1.5-2.0cm) LVDs3.1 (2.5-4.0cm) PWs2.2 cm Normal left ventricular chamber size, systolic function and wall motion. Left ventricular ejection fraction estimated to be 55-60 %. Mild left ventricular hypertrophy. Anterior Echo-free space, may be due to pericardial fat or effusion. Mild bi-atrial enlargement. Right ventricular chamber sizes is within normal limits. Focal aortic valve sclerosis with adequate cusp excursion. Thickened mitral valve leaflets with normal excursion. Mild mitral annulus and aortic root calcification. Normal pulmonic valve structure. Normal tricuspid valve structure. IVC dilated at 2.0 cm without physiological collapse, estimated RAP is 15 mmHg. A color flow and spectral Doppler study was performed and revealed: Trace aortic insufficiency. Mild mitral regurgitation. Normal left ventricular diastolic function. Mild tricuspid regurgitation. Tricuspid systolic velocities suggests peak right ventricular systolic pressure of 44 mmHg, consistent with mild pulmonary hypertension. Mild pulmonic regurgitation present.
--- NOTE | 2017-11-03 11:25 | Infectious Diseases Prog Note ---
Assessment/Plan Assessment/Plan ASSESSMENT AND PLAN: 1. sepsis, shock, ? uti, ? cholecystitis on ct scan, leukocytosis - zosyn for now - bp better, no pressors - check final cultures - check us - surgery evaluation - check labs and chest x-ray - d/w Dr. Jones 2. Acute renal failure, anemia, Ch, chf/pulmonary edema - ? renal evaluation , cardiology consult noted 3. Diabetes. 4. GIB 5. Possible hyperlipidemia. He is on Lipitor. 6. Hyponatremia. 7. No known allergies. 8. Social history negative. 9. Family history noncontributory. 10. MAR was noted. 11. Case was discussed with RN. 12. Continue treatment per primary consultants. 13. Case was discussed with the patient's family. 14. icu - to be transferred out of icu per RN Subjective Constitutional: Denies: fever Respiratory: Reports: shortness of breath Cardiovascular: Denies: chest pain Gastrointestinal/Abdominal: Denies: nausea, vomiting Genitourinary: Reports: other - + ch Neurologic: Denies: headache Psychiatric: Denies: depression Skin: Denies: rash Hematologic: Denies: bleeding Musculoskeletal: Denies: pain Allergies: Coded Allergies: No Known Allergies (Unverified , 11/01/17) Objective Vital Signs Last 24 Hour Vital Signs Date Time Temp Pulse Resp B/P (MAP) Pulse Ox O2 Delivery O2 Flow Rate FiO2 11/03/17 10:00 83 19 147/63 84 11/03/17 09:00 89 21 147/58 88 Non-Rebreather 4.0 11/03/17 08:00 90 11/03/17 08:00 98.7 90 21 136/70 89 Nasal Cannula 4.0 11/03/17 07:23 Non-Rebreather 15.0 100 11/03/17 07:23 95 Non-Rebreather 15.0 100 11/03/17 07:22 92 23 Non-Rebreather 15.0 100 11/03/17 07:21 92 22 95 Non-Rebreather 15.0 100 11/03/17 07:21 92 22 95 Non-Rebreather 15.0 100 11/03/17 07:00 91 21 133/65 95 Non-Rebreather 15.0 100 11/03/17 06:00 88 21 144/71 93 Non-Rebreather 15.0 100 11/03/17 05:00 94 21 150/63 93 Non-Rebreather 15.0 100 11/03/17 04:00 90 11/03/17 04:00 97.8 90 17 115/30 92 Non-Rebreather 15.0 100 11/03/17 03:00 84 15 108/51 93 Non-Rebreather 15.0 100 11/03/17 03:00 108/41 11/03/17 02:30 83 16 114/56 93 Non-Rebreather 15.0 100 11/03/17 02:00 115/50 11/03/17 02:00 81 16 114/50 93 Non-Rebreather 15.0 100 11/03/17 01:30 81 16 116/53 93 Non-Rebreather 15.0 100 11/03/17 01:26 80 14 94 Non-Rebreather 15.0 100 11/03/17 01:23 80 14 94 Non-Rebreather 15.0 100 11/03/17 01:00 80 13 117/50 92 Non-Rebreather 15.0 100 11/03/17 01:00 117/50 11/03/17 00:30 98.4 82 16 109/68 93 Non-Rebreather 15.0 100 11/03/17 00:00 134/54 11/03/17 00:00 104 24 134/54 93 Non-Rebreather 15.0 100 11/03/17 00:00 104 11/02/17 23:30 85 18 112/46 93 Non-Rebreather 15.0 100 11/02/17 23:00 118/49 11/02/17 23:00 86 18 118/49 88 Nasal Cannula 4.0 11/02/17 22:30 84 18 105/41 88 Nasal Cannula 4.0 11/02/17 22:00 105/41 11/02/17 22:00 83 18 101/32 90 Nasal Cannula 4.0 11/02/17 21:46 76 17 92 Nasal Cannula 4.0 36 11/02/17 21:43 76 17 92 Nasal Cannula 4.0 36 11/02/17 21:30 78 18 99/43 92 Nasal Cannula 4.0 11/02/17 21:00 78 18 114/53 91 Nasal Cannula 4.0 11/02/17 21:00 99/40 11/02/17 20:30 78 18 110/51 90 Nasal Cannula 4.0 11/02/17 20:00 79 20 113/45 90 Nasal Cannula 4.0 11/02/17 20:00 79 11/02/17 20:00 113/45 11/02/17 19:32 Nasal Cannula 4.0 36 11/02/17 19:31 92 Nasal Cannula 4.0 36 11/02/17 19:30 98.8 78 20 103/46 92 Nasal Cannula 4.0 11/02/17 19:00 76 17 107/54 92 Nasal Cannula 4.0 11/02/17 19:00 107/54 11/02/17 18:30 73 18 104/54 91 Nasal Cannula 4.0 11/02/17 18:00 76 18 116/46 89 Nasal Cannula 4.0 11/02/17 18:00 100/61 11/02/17 17:30 74 15 95/42 88 Nasal Cannula 4.0 11/02/17 17:00 74 18 103/64 92 Nasal Cannula 4.0 11/02/17 17:00 103/64 11/02/17 16:30 73 19 101/56 92 Nasal Cannula 4.0 11/02/17 16:00 101/56 11/02/17 16:00 98.4 72 20 109/59 96 Nasal Cannula 4.0 11/02/17 16:00 72 11/02/17 15:30 71 18 99/35 92 Nasal Cannula 4.0 11/02/17 15:00 77 22 98/60 91 Nasal Cannula 4.0 11/02/17 15:00 98/60 11/02/17 14:30 68 20 94/55 92 Nasal Cannula 4.0 11/02/17 14:00 96/51 11/02/17 14:00 72 18 96/51 91 Nasal Cannula 4.0 11/02/17 13:30 69 18 105/50 92 Nasal Cannula 4.0 11/02/17 13:06 74 16 94 Nasal Cannula 4.0 11/02/17 13:01 74 16 9 Nasal Cannula 4.0 11/02/17 13:00 92/43 11/02/17 13:00 73 18 92/43 92 Nasal Cannula 4.0 11/02/17 12:30 69 16 96/50 92 Nasal Cannula 4.0 11/02/17 12:00 69 11/02/17 12:00 97.8 91 21 /39 91 Nasal Cannula 4.0 11/02/17 12:00 /39 11/02/17 11:30 68 15 90/41 91 Nasal Cannula 4.0 Height (Feet): 5 Height (Inches): 4.00 Weight (Pounds): 190 General Appearance: no acute distress HEENT: normocephalic, atraumatic, anicteric, mucous membranes moist, EOMI, supple, no JVD Respiratory/Chest: crackles/rales, rhonchi - bilaterally Cardiovascular: normal rate, regular rhythm, no gallop/murmur, no JVD Abdomen: normal bowel sounds, soft, non tender, no organomegaly, distended, other - no rebound Genitourinary: other - + ch - urine clearer Extremities: no cyanosis Skin: no rash Neurologic/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 Findings are concerning for acute cholecystitis, either acalculous or due to occult calculi. Recommend sonographic correlation Bilateral basilar pulmonary parenchymal atelectasis and bilateral pleural effusions. Generalized interstitial septal thickening is concerning for pulmonary edema Cardiomegaly Diverticulosis. No evidence of diverticulitis. Normal: Ch catheter Penile prosthesis reservoir noted in the pelvis Nonspecific bilateral perinephric fat stranding, significance indeterminate although suspect chronic Borderline cardiomegaly This agrees with the preliminary interpretation provided overnight by [facility] telerad[facility] service. The CT scanner at [facility] is accredited by the [employer] and the scans are performed using protocols designed to limit radiation exposure to as low as reasonably achievable to attain images of sufficient resolution adequate for diagnostic evaluation. Chest x-ray - chf us abdomen - pending Microbiology Date/Time Source Procedure Growth Status 11/01/17 12:20 Blood Blood Culture - Preliminary NO GROWTH AFTER 24 HOURS Resulted 11/01/17 12:10 Blood Blood Culture - Preliminary NO GROWTH AFTER 24 HOURS Resulted 11/01/17 12:50 Nasal Nares Influenza Types A,B Antigen (JUNG) - Final Complete 11/02/17 19:00 Indwelling Cath Urine Culture - Preliminary NO GROWTH Resulted Laboratory Tests Test 11/03/17 05:00 White Blood Count 12.7 K/UL (4.8-10.8) H Red Blood Count 3.63 M/UL (4.70-6.10) L Hemoglobin 9.8 G/DL (14.2-18.0) L Hematocrit 29.4 % (42.0-52.0) L Mean Corpuscular Volume 81 FL (80-99) Mean Corpuscular Hemoglobin 26.9 PG (27.0-31.0) L Mean Corpuscular Hemoglobin Concent 33.2 G/DL (32.0-36.0) Red Cell Distribution Width 14.3 % (11.6-14.8) Platelet Count 179 K/UL (150-450) Mean Platelet Volume 10.1 FL (6.5-10.1) Neutrophils (%) (Auto) % (45.0-75.0) Lymphocytes (%) (Auto) % (20.0-45.0) Monocytes (%) (Auto) % (1.0-10.0) Eosinophils (%) (Auto) % (0.0-3.0) Basophils (%) (Auto) % (0.0-2.0) Sodium Level 125 MMOL/L (136-145) L Potassium Level 4.5 MMOL/L (3.5-5.1) Chloride Level 93 MMOL/L (98-107) L Carbon Dioxide Level 20 MMOL/L (21-32) L Anion Gap 13 mmol/L (5-15) Blood Urea Nitrogen 61 mg/dL (7-18) H Creatinine 5.6 MG/DL (0.55-1.30) H Estimat Glomerular Filtration Rate mL/min (>60) Glucose Level 108 MG/DL (74-106) #H Hemoglobin A1c 10.4 % (4.3-6.0) H Lactic Acid Level 1.40 mmol/L (0.66-2.22) Calcium Level 7.4 MG/DL (8.5-10.1) L Total Bilirubin 0.4 MG/DL (0.2-1.0) Aspartate Amino Transf (AST/SGOT) 14 U/L (15-37) L Alanine Aminotransferase (ALT/SGPT) 16 U/L (12-78) Alkaline Phosphatase 96 U/L (46-116) Pro-B-Type Natriuretic Peptide 8925 pg/mL (0-125) H Total Protein 7.0 G/DL (6.4-8.2) Albumin 2.6 G/DL (3.4-5.0) L Globulin 4.4 g/dL Albumin/Globulin Ratio 0.6 (1.0-2.7) L Current Medications Medications (Trade) Dose Ordered Sig/Marie Route PRN Reason Start Time Stop Time Status Last Admin Dose Admin Acetaminophen/ Codeine Phosphate (Tylenol #3) 2 tab Q6H PRN ORAL For Pain 11/01/17 22:00 11/08/17 21:59 Albuterol Sulfate (Proventil MDI) 1 puff Q6HRT INH 11/03/17 20:00 12/03/17 19:59 11/03/17 07:20 Aspirin (Ecotrin) 81 mg DAILY ORAL 11/02/17 09:00 12/02/17 08:59 11/03/17 09:43 Atorvastatin Calcium (Lipitor) 80 mg QHS ORAL 11/02/17 21:00 12/02/17 20:59 11/02/17 20:30 Chlorhexidine Gluconate (Amna-Hex 2%) 1 applic DAILY@2000 TOPIC 11/02/17 20:00 12/02/17 19:59 11/02/17 20:29 Clopidogrel Bisulfate (Plavix) 75 mg DAILY ORAL 11/02/17 09:00 12/02/17 08:59 11/03/17 09:44 Dextrose (Dextrose 50%) STAT PRN IV Hypoglycemia 11/01/17 22:30 12/01/17 22:29 Dopamine HCl/ Dextrose 250 ml @ 0 mls/hr Q24H IV 11/01/17 22:00 12/01/17 21:59 11/02/17 08:52 Gabapentin (Neurontin) 100 mg BID ORAL 11/02/17 09:00 12/02/17 08:59 11/03/17 09:44 Hydromorphone HCl (Dilaudid) 0.5 mg Q4H PRN IVP For Pain 11/03/17 00:15 11/10/17 00:14 11/03/17 00:17 Insulin Aspart (NovoLOG) BEFORE MEALS AND HS SUBQ 11/02/17 06:30 12/02/17 06:29 11/02/17 20:32 Insulin Detemir (Levemir) 15 units BEDTIME SUBQ 11/01/17 21:00 12/01/17 20:59 11/02/17 20:31 Norepinephrine Bitartrate 4 mg/ Dextrose 250 ml @ 0 mls/hr Q24H IV 11/01/17 22:00 12/01/17 21:59 11/02/17 05:35 Ondansetron HCl (Zofran) 4 mg Q6H PRN IVP Nausea & Vomiting 11/02/17 02:00 12/02/17 01:59 11/02/17 14:29 Piperacillin Sod/ Tazobactam Sod 3.375 gm/Sodium Chloride 110 ml @ 27.5 mls/hr Q12HR IVPB 11/02/17 16:00 11/09/17 15:59 11/03/17 09:44 Ranolazine (Ranexa ER 500mg) 500 mg EVERY 12 HOURS ORAL 11/02/17 09:00 12/02/17 08:59 11/03/17 09:43 Sodium Chloride 500 ml @ 100 mls/hr Q5H IV 11/03/17 02:00 12/03/17 01:59 11/03/17 04:47 CYRUS ELISE Nov 03, 2017 11:25
[2017-11-03] MEDS ORDERED: Sodium Chloride 500ML 500 ML IV SCH (12:15)
--- NOTE | 2017-11-03 14:56 | Consultation ---
History of Present Illness General Date patient seen: Nov 03, 2017 Chief Complaint: Altered Level of Consciousness Reason for Consultation: acute cholecystitis Present Illness HPI Late entry for patient seen prior. 77 year old male presented with septic shock. as per patient and family he started feeling unwell few days prior to admission. He felt weak and tired. Had chills, nausea, and emesis. Day of admission was not looking well so taken to ED for evaluation. On admission noted to be hypotensive, tachy, sob. transferred to ICU for care and management. required pressor support and resuscitation. Noted to have significant leukocytosis. during work up found to have UTI and CT with possible cholecystitis. Surgery called to evaluate for possible etiology of sepsis being abdominal/GB. Allergies: Coded Allergies: No Known Allergies (Unverified , 11/01/17) Medication History Scheduled Albuterol Sulfate* (Proair Hfa*), 1 PUFF INH Q6H, (Reported) Aspirin Ec* (Aspirin Ec*), 81 MG ORAL DAILY, (Reported) Atorvastatin (Lipitor), 80 MG ORAL DAILY, (Reported) Clopidogrel* (Clopidogrel*), 75 MG ORAL DAILY, (Reported) Gabapentin* (Gabapentin*), 100 MG ORAL BID, (Reported) Insulin Glargine (Lantus), 15 SUBQ BEDTIME, (Reported) Ranolazine* (Ranexa*), 500 MG ORAL EVERY 12 HOURS, (Reported) Scheduled PRN Acetaminophen With Codeine (T#3) (Tylenol #3 Tab*), 2 TAB ORAL Q6H PRN for For Pain, (Reported) Discontinued Medications Amlodipine Besylate* (Amlodipine Besylate*), 5 MG ORAL DAILY, (Reported) Discontinued Reason: MD discontinued med Amlodipine Besylate* (Amlodipine Besylate*), 5 MG ORAL DAILY, (Reported) Discontinued Reason: MD discontinued med Ciprofloxacin Hcl* (Ciprofloxacin Hcl*), 500 MG ORAL EVERY 12 HOURS, (Reported) Discontinued Reason: MD discontinued med Hydrochlorothiazide* (Hydrochlorothiazide*), 12.5 MG ORAL DAILY, (Reported) Discontinued Reason: MD discontinued med Lisinopril* (Lisinopril*), 40 MG ORAL DAILY, (Reported) Discontinued Reason: MD discontinued med Metformin Hcl* (Metformin Hcl*), 1,000 MG ORAL DAILY, (Reported) Discontinued Reason: MD discontinued med Metoprolol Tartrate* (Metoprolol Tartrate*), 50 MG ORAL EVERY 12 HOURS, ( Reported) Discontinued Reason: MD discontinued med Nifedipine (Nifedipine*), 60 MG ORAL BID, (Reported) Discontinued Reason: MD discontinued med Omeprazole (Omeprazole), 40 MG ORAL DAILY, (Reported) Discontinued Reason: discontinued med Pantoprazole* (Pantoprazole*), 40 MG ORAL DAILY, (Reported) Discontinued Reason: discontinued med Tamsulosin Hcl (Tamsulosin Hcl*), 0.4 MG ORAL DAILY, (Reported) Discontinued Reason: MD discontinued med Patient History History Provided By: Patient, Family Member, Medical Record, PMD Healthcare decision maker Nelsy Resuscitation status Full Code Advanced Directive on File No Past Medical/Surgical History Past Medical/Surgical History: (1) Pain, abdominal, generalized (2) Nausea & vomiting (3) Dehydration (4) Hypocalcemia (5) CHF (congestive heart failure) (6) Renal failure (7) Hypotension (8) Septic shock Review of Systems Constitutional: Reports: chills, sweats, fever, malaise, weakness Eye: Denies: no symptoms, see HPI, eye pain, blurred vision, tearing, double vision, nose pain, nose congestion, acuity changes, discharge, other ENT: Denies: no symptoms, see HPI, ear pain, ear discharge, nose pain, nose congestion, throat pain, throat swelling, mouth pain, hearing loss, nasal discharge, other Respiratory: Denies: no symptoms, see HPI, cough, orthopnea, shortness of breath, stridor, wheezing, WALKER, sputum, other Cardiovascular: Denies: no symptoms, see HPI, chest pain, edema, palpitations, syncope, PND, other Gastrointestinal: Reports: abdominal pain, nausea, vomiting Genitourinary: Denies: no symptoms, see HPI, discharge, dysuria, frequency, hematuria, pain, retention, incontinence, urgency, vag bleed/dc, other Musculoskeletal: Denies: no symptoms, see HPI, back pain, gout, joint pain, joint swelling, muscle pain, muscle stiffness, other Skin: Denies: no symptoms, see HPI, rash, change in color, change in hair/nails , dryness, lesions, other Psychiatric: Denies: no symptoms, see HPI, prior hx, anxiety, depressed feelings, emotional problems, SI, HI, hallucinations, other Neurological: Denies: no symptoms, see HPI, headache, numbness, paresthesia, seizure, tingling, tremors, focal weakness, syncope, dizziness, other Endocrine: Denies: no symptoms, see HPI, excessive sweating, flushing, intolerance to temperature, increased thirst, increased urine, unexplained weight loss, other Hematologic/Lymphatic: Denies: no symptoms, see HPI, anemia, blood clots, easy bleeding, easy bruising, swollen glands, diathesis, other Physical Exam General Appearance: no apparent distress, alert Lines, tubes and drains: peripheral HEENT: atraumatic, PERRL Neck: supple Respiratory/Chest: chest wall non-tender, no respiratory distress, no accessory muscle use Cardiovascular/Chest: normal peripheral pulses, normal rate, regular rhythm Abdomen: non tender, soft, no organomegaly, no mass, distended Extremities: non-tender, normal inspection, trace edema Skin Exam: normal pigmentation, warm/dry Neurologic: alert, oriented x 3, responsive Last 24 Hour Vital Signs Date Time Temp Pulse Resp B/P (MAP) Pulse Ox O2 Delivery O2 Flow Rate FiO2 11/03/17 14:04 78 24 91 Non-Rebreather 15.0 100 11/03/17 13:55 79 26 87 Venturi Mask 14.0 55 11/03/17 13:33 98.1 81 22 135/68 83 11/03/17 12:00 88 19 146/66 90 11/03/17 12:00 85 11/03/17 11:00 90.4 92 19 149/63 84 11/03/17 10:00 83 19 147/63 84 11/03/17 09:00 89 21 147/58 88 Non-Rebreather 4.0 11/03/17 08:00 90 11/03/17 08:00 98.7 90 21 136/70 89 Nasal Cannula 4.0 11/03/17 07:23 Non-Rebreather 15.0 100 11/03/17 07:23 95 Non-Rebreather 15.0 100 11/03/17 07:22 92 23 Non-Rebreather 15.0 100 11/03/17 07:21 92 22 95 Non-Rebreather 15.0 100 11/03/17 07:21 92 22 95 Non-Rebreather 15.0 100 11/03/17 07:00 91 21 133/65 95 Non-Rebreather 15.0 100 11/03/17 06:00 88 21 144/71 93 Non-Rebreather 15.0 100 11/03/17 05:00 94 21 150/63 93 Non-Rebreather 15.0 100 11/03/17 04:00 90 11/03/17 04:00 97.8 90 17 115/30 92 Non-Rebreather 15.0 100 11/03/17 03:00 84 15 108/51 93 Non-Rebreather 15.0 100 11/03/17 03:00 108/41 11/03/17 02:30 83 16 114/56 93 Non-Rebreather 15.0 100 11/03/17 02:00 115/50 11/03/17 02:00 81 16 114/50 93 Non-Rebreather 15.0 100 11/03/17 01:30 81 16 116/53 93 Non-Rebreather 15.0 100 11/03/17 01:26 80 14 94 Non-Rebreather 15.0 100 11/03/17 01:23 80 14 94 Non-Rebreather 15.0 100 11/03/17 01:00 80 13 117/50 92 Non-Rebreather 15.0 100 11/03/17 01:00 117/50 11/03/17 00:30 98.4 82 16 109/68 93 Non-Rebreather 15.0 100 11/03/17 00:00 134/54 11/03/17 00:00 104 24 134/54 93 Non-Rebreather 15.0 100 11/03/17 00:00 104 11/02/17 23:30 85 18 112/46 93 Non-Rebreather 15.0 100 11/02/17 23:00 118/49 11/02/17 23:00 86 18 118/49 88 Nasal Cannula 4.0 11/02/17 22:30 84 18 105/41 88 Nasal Cannula 4.0 11/02/17 22:00 105/41 11/02/17 22:00 83 18 101/32 90 Nasal Cannula 4.0 11/02/17 21:46 76 17 92 Nasal Cannula 4.0 36 11/02/17 21:43 76 17 92 Nasal Cannula 4.0 36 11/02/17 21:30 78 18 99/43 92 Nasal Cannula 4.0 11/02/17 21:00 78 18 114/53 91 Nasal Cannula 4.0 11/02/17 21:00 99/40 11/02/17 20:30 78 18 110/51 90 Nasal Cannula 4.0 11/02/17 20:00 79 20 113/45 90 Nasal Cannula 4.0 11/02/17 20:00 79 11/02/17 20:00 113/45 11/02/17 19:32 Nasal Cannula 4.0 36 11/02/17 19:31 92 Nasal Cannula 4.0 36 11/02/17 19:30 98.8 78 20 103/46 92 Nasal Cannula 4.0 11/02/17 19:00 76 17 107/54 92 Nasal Cannula 4.0 11/02/17 19:00 107/54 11/02/17 18:30 73 18 104/54 91 Nasal Cannula 4.0 11/02/17 18:00 76 18 116/46 89 Nasal Cannula 4.0 11/02/17 18:00 100/61 11/02/17 17:30 74 15 95/42 88 Nasal Cannula 4.0 11/02/17 17:00 74 18 103/64 92 Nasal Cannula 4.0 11/02/17 17:00 103/64 11/02/17 16:30 73 19 101/56 92 Nasal Cannula 4.0 11/02/17 16:00 101/56 11/02/17 16:00 98.4 72 20 109/59 96 Nasal Cannula 4.0 11/02/17 16:00 72 11/02/17 15:30 71 18 99/35 92 Nasal Cannula 4.0 11/02/17 15:00 77 22 98/60 91 Nasal Cannula 4.0 11/02/17 15:00 98/60 Intake and Output 11/02/17 11/03/17 19:00 07:00 Intake Total 1010.600 ml 1374.36 ml Output Total 346 ml 245 ml Balance 664.600 ml 1129.36 ml Intake Oral 130 ml 30 ml IV Total 880.600 ml 1344.36 ml Output Urine Total 46 ml 245 ml Emesis 300 ml Laboratory Tests Test 11/03/17 05:00 White Blood Count 12.7 K/UL (4.8-10.8) H Red Blood Count 3.63 M/UL (4.70-6.10) L Hemoglobin 9.8 G/DL (14.2-18.0) L Hematocrit 29.4 % (42.0-52.0) L Mean Corpuscular Volume 81 FL (80-99) Mean Corpuscular Hemoglobin 26.9 PG (27.0-31.0) L Mean Corpuscular Hemoglobin Concent 33.2 G/DL (32.0-36.0) Red Cell Distribution Width 14.3 % (11.6-14.8) Platelet Count 179 K/UL (150-450) Mean Platelet Volume 10.1 FL (6.5-10.1) Neutrophils (%) (Auto) % (45.0-75.0) Lymphocytes (%) (Auto) % (20.0-45.0) Monocytes (%) (Auto) % (1.0-10.0) Eosinophils (%) (Auto) % (0.0-3.0) Basophils (%) (Auto) % (0.0-2.0) Sodium Level 125 MMOL/L (136-145) L Potassium Level 4.5 MMOL/L (3.5-5.1) Chloride Level 93 MMOL/L (98-107) L Carbon Dioxide Level 20 MMOL/L (21-32) L Anion Gap 13 mmol/L (5-15) Blood Urea Nitrogen 61 mg/dL (7-18) H Creatinine 5.6 MG/DL (0.55-1.30) H Estimat Glomerular Filtration Rate mL/min (>60) Glucose Level 108 MG/DL (74-106) #H Hemoglobin A1c 10.4 % (4.3-6.0) H Lactic Acid Level 1.40 mmol/L (0.66-2.22) Calcium Level 7.4 MG/DL (8.5-10.1) L Total Bilirubin 0.4 MG/DL (0.2-1.0) Aspartate Amino Transf (AST/SGOT) 14 U/L (15-37) L Alanine Aminotransferase (ALT/SGPT) 16 U/L (12-78) Alkaline Phosphatase 96 U/L (46-116) Pro-B-Type Natriuretic Peptide 8925 pg/mL (0-125) H Total Protein 7.0 G/DL (6.4-8.2) Albumin 2.6 G/DL (3.4-5.0) L Globulin 4.4 g/dL Albumin/Globulin Ratio 0.6 (1.0-2.7) L Microbiology Date/Time Source Procedure Growth Status 11/02/17 19:00 Indwelling Cath Urine Culture - Preliminary NO GROWTH Resulted Height (Feet): 5 Height (Inches): 4.00 Weight (Pounds): 190 Medications Current Medications Medications (Trade) Dose Ordered Sig/Marie Route PRN Reason Start Time Stop Time Status Last Admin Dose Admin Acetaminophen/ Codeine Phosphate (Tylenol #3) 2 tab Q6H PRN ORAL For Pain 11/03/17 16:00 11/08/17 21:59 UNV Albuterol Sulfate (Proventil MDI) 1 puff Q6HRT INH 11/03/17 19:00 12/03/17 18:59 11/03/17 14:00 Aspirin (Ecotrin) 81 mg DAILY ORAL 11/04/17 09:00 12/02/17 08:59 Atorvastatin Calcium (Lipitor) 80 mg QHS ORAL 11/03/17 21:00 12/02/17 20:59 Chlorhexidine Gluconate (Amna-Hex 2%) 1 applic DAILY@2000 TOPIC 11/03/17 20:00 12/02/17 19:59 Clopidogrel Bisulfate (Plavix) 75 mg DAILY ORAL 11/04/17 09:00 12/02/17 08:59 Dextrose (Dextrose 50%) STAT PRN IV Hypoglycemia 11/03/17 13:30 12/01/17 13:29 Gabapentin (Neurontin) 100 mg BID ORAL 11/03/17 18:00 12/02/17 08:59 Hydromorphone HCl (Dilaudid) 0.5 mg Q4H PRN IVP For Pain 11/03/17 12:15 11/10/17 00:14 UNV Insulin Aspart (NovoLOG) BEFORE MEALS AND HS SUBQ 11/03/17 16:30 12/02/17 06:29 Insulin Detemir (Levemir) 15 units BEDTIME SUBQ 11/03/17 21:00 12/01/17 20:59 Ondansetron HCl (Zofran) 4 mg Q6H PRN IVP Nausea & Vomiting 11/03/17 14:00 12/02/17 01:59 Piperacillin Sod/ Tazobactam Sod 3.375 gm/Sodium Chloride 110 ml @ 27.5 mls/hr Q12HR IVPB 11/03/17 21:00 11/09/17 20:59 Ranolazine (Ranexa ER 500mg) 500 mg EVERY 12 HOURS ORAL 11/03/17 21:00 12/02/17 08:59 Sodium Chloride 1,000 ml @ 100 mls/hr Q10H IV 11/03/17 14:00 12/03/17 13:59 Assessment/Plan Problem List: (1) Septic shock Assessment & Plan: 77 year old male presented in septic shock. initially in ICU on pressors but with resuscitation has since weaned off pressors and downgraded. on broad spectrum IV Abx. possible etiology UTI vs cholecystitis vs other. Leukocytosis improving. afebrile, HD stable. Labs reviewed and renal function worsening. on exam abd soft, distended, non tender. CT demonstrated possible acalculous cholecystitis with edema and perichole stranding. Ultrasound completed and similar findings not confirmed. US demonstrates borderline thickening of GB wall, no stones, no distention. Unlikely etiology to be acute acalculous cholecystitis given ultrasound findings. if so, has improved rapidly since CT scan. No acute surgical intervention necessary. will follow exam continue with resuscitation. thank you for this consultation ICD Codes: A41.9 - Sepsis, unspecified organism; R65.21 - Severe sepsis with septic shock SNOMED: [id number] Status: stable Red [place] Nov 03, 2017 14:56
--- NOTE | 2017-11-03 15:19 | Diagnostic Imaging Report ---
Indication: Abnormal renal function tests, vomiting, abdominal distention, abnormal prior CT Technique: Jones-scale and duplex images of the upper abdomen were obtained Comparison: Reference made to CT scan 11/01/2017 Findings: Gallbladder demonstrates borderline wall thickening, gallbladder wall thickness measuring 3 mm. Sonographic Powers sign is negative No stones or pericholecystic fluid Common bile duct measures 10 mm in diameter. No intrahepatic biliary ductal dilatation. Liver demonstrates normal echogenicity, no focal abnormality. Portal vein and hepatic veins are patent. Pancreas is incompletely visualized due to overlying bowel gas, visualized portions are unremarkable. Spleen is unremarkable. Left kidney measures 10.4 cm in length. Right kidney measures 10.6 cm length. Both kidneys demonstrate normal echogenicity. There is no hydronephrosis. No focal abnormality . Abdominal aorta is partially obscured by bowel gas, visualized portions are non-aneurysmal . There are bilateral pleural effusions Impression: Negative for gallstones. There is borderline gallbladder wall thickening, significance uncertain. Consider nuclear medicine hepatobiliary scan if there is high clinical suspicion for acute acalculous cholecystitis Dilated common bile duct, more evident than on prior CT scan of 11/01/2017. Downstream obstruction with excludable. Correlate with liver function tests Bilateral pleural effusions Note inability to visualize portions of the pancreas and abdominal aorta
[2017-11-03] MEDS ORDERED: Tylenol #3 tab (300mg/30mg) ORAL PRN (16:00)
--- NOTE | 2017-11-03 18:21 | Cardiology Report ---
APPROVED REPORT EKG Measurement Heart [id number] Sinus rhythm with 1st degree AV block Otherwise normal ECG
[2017-11-03] MEDS ORDERED: NS 500ML ONE (19:37)
[2017-11-03] MEDS ORDERED: Dyna-Hex 2% Top Sol 2oz TOPIC SCH (20:00)
[2017-11-03] MEDS: Tamsulosin 0.4mg cap ORAL SCH (21:01)
[2017-11-03] MEDS: Atorvastatin 80mg tab ORAL SCH (21:01)
[2017-11-03] MEDS: Levemir Flexpen SUBQ SCH (21:04)
--- NOTE | 2017-11-03 21:52 | General Progress Note ---
Assessment/Plan Problem List: (1) Diabetes mellitus out of control ICD Codes: E11.65 - Type 2 diabetes mellitus with hyperglycemia SNOMED: 71125062, 008093904 (2) Septic shock ICD Codes: A41.9 - Sepsis, unspecified organism; R65.21 - Severe sepsis with septic shock SNOMED: 52769833 (3) Hypotension ICD Codes: I95.9 - Hypotension, unspecified SNOMED: 69370176 Assessment/Plan continue Levemir 15 units qhs continue NISS Subjective Allergies: Coded Allergies: No Known Allergies (Unverified , 11/01/17) Subjective events noted - interval notes reviewed Objective Last 24 Hour Vital Signs Date Time Temp Pulse Resp B/P (MAP) Pulse Ox O2 Delivery O2 Flow Rate FiO2 11/03/17 19:41 Non-Rebreather 15.0 100 11/03/17 19:41 92 Non-Rebreather 15.0 100 11/03/17 19:40 93 22 Non-Rebreather 15.0 100 11/03/17 16:00 77 11/03/17 14:04 78 24 91 Non-Rebreather 15.0 100 11/03/17 13:55 79 26 87 Venturi Mask 14.0 55 11/03/17 13:33 98.1 81 22 135/68 83 11/03/17 12:00 88 19 146/66 90 11/03/17 12:00 85 11/03/17 11:00 90.4 92 19 149/63 84 11/03/17 10:00 83 19 147/63 84 11/03/17 09:00 89 21 147/58 88 Non-Rebreather 4.0 11/03/17 08:00 90 11/03/17 08:00 98.7 90 21 136/70 89 Nasal Cannula 4.0 11/03/17 07:23 Non-Rebreather 15.0 100 11/03/17 07:23 95 Non-Rebreather 15.0 100 11/03/17 07:22 92 23 Non-Rebreather 15.0 100 11/03/17 07:21 92 22 95 Non-Rebreather 15.0 100 11/03/17 07:21 92 22 95 Non-Rebreather 15.0 100 11/03/17 07:00 91 21 133/65 95 Non-Rebreather 15.0 100 11/03/17 06:00 88 21 144/71 93 Non-Rebreather 15.0 100 11/03/17 05:00 94 21 150/63 93 Non-Rebreather 15.0 100 11/03/17 04:00 90 11/03/17 04:00 97.8 90 17 115/30 92 Non-Rebreather 15.0 100 11/03/17 03:00 84 15 108/51 93 Non-Rebreather 15.0 100 11/03/17 03:00 108/41 11/03/17 02:30 83 16 114/56 93 Non-Rebreather 15.0 100 11/03/17 02:00 115/50 11/03/17 02:00 81 16 114/50 93 Non-Rebreather 15.0 100 11/03/17 01:30 81 16 116/53 93 Non-Rebreather 15.0 100 11/03/17 01:26 80 14 94 Non-Rebreather 15.0 100 11/03/17 01:23 80 14 94 Non-Rebreather 15.0 100 11/03/17 01:00 80 13 117/50 92 Non-Rebreather 15.0 100 11/03/17 01:00 117/50 11/03/17 00:30 98.4 82 16 109/68 93 Non-Rebreather 15.0 100 11/03/17 00:00 134/54 11/03/17 00:00 104 24 134/54 93 Non-Rebreather 15.0 100 11/03/17 00:00 104 11/02/17 23:30 85 18 112/46 93 Non-Rebreather 15.0 100 11/02/17 23:00 118/49 11/02/17 23:00 86 18 118/49 88 Nasal Cannula 4.0 11/02/17 22:30 84 18 105/41 88 Nasal Cannula 4.0 11/02/17 22:00 105/41 11/02/17 22:00 83 18 101/32 90 Nasal Cannula 4.0 Intake and Output 11/02/17 11/03/17 19:00 07:00 Intake Total 1010.600 ml 1374.36 ml Output Total 346 ml 245 ml Balance 664.600 ml 1129.36 ml Intake Oral 130 ml 30 ml IV Total 880.600 ml 1344.36 ml Output Urine Total 46 ml 245 ml Emesis 300 ml Laboratory Tests 11/03/17 05:00: White Blood Count 12.7H, Red Blood Count 3.63L, Hemoglobin 9.8L, Hematocrit 29.4L, Mean Corpuscular Volume 81, Mean Corpuscular Hemoglobin 26.9L, Mean Corpuscular Hemoglobin Concent 33.2, Red Cell Distribution Width 14.3, Platelet Count 179, Mean Platelet Volume 10.1, Neutrophils (%) (Auto) , Lymphocytes (%) ( Auto) , Monocytes (%) (Auto) , Eosinophils (%) (Auto) , Basophils (%) (Auto) , Sodium Level 125L, Potassium Level 4.5, Chloride Level 93L, Carbon Dioxide Level 20L, Anion Gap 13, Blood Urea Nitrogen 61H, Creatinine 5.6H, Estimat Glomerular Filtration Rate , Glucose Level 108#H, Hemoglobin A1c 10.4H, Lactic Acid Level 1.40, Calcium Level 7.4L, Total Bilirubin 0.4, Aspartate Amino Transf (AST/SGOT) 14L, Alanine Aminotransferase (ALT/SGPT) 16, Alkaline Phosphatase 96, Pro-B-Type Natriuretic Peptide 8925H, Total Protein 7.0, Albumin 2.6L, Globulin 4.4, Albumin/Globulin Ratio 0.6L Height (Feet): 5 Height (Inches): 4.00 Weight (Pounds): 190 General Appearance: no apparent distress Neck: normal alignment Cardiovascular: normal rate, regular rhythm Respiratory/Chest: lungs clear Abdomen: normal bowel sounds Edema: no edema noted Arm (L), no edema noted Arm (R), no edema noted Leg (L), no edema noted Leg (R), no edema noted Pedal (L), no edema noted Pedal (R), no edema noted Generalized Objective Current Medications Medications (Trade) Dose Ordered Sig/Marie Route PRN Reason Start Time Stop Time Status Last Admin Dose Admin Acetaminophen/ Codeine Phosphate (Tylenol #3) 2 tab Q6H PRN ORAL Moderate Pain (Scale 4-6) 11/03/17 16:00 11/08/17 21:59 Albuterol Sulfate (Proventil MDI) 1 puff Q6HRT INH 11/03/17 19:00 12/03/17 18:59 11/03/17 14:00 Aspirin (Ecotrin) 81 mg DAILY ORAL 11/04/17 09:00 12/02/17 08:59 Atorvastatin Calcium (Lipitor) 80 mg QHS ORAL 11/03/17 21:00 12/02/17 20:59 11/03/17 21:01 Clopidogrel Bisulfate (Plavix) 75 mg DAILY ORAL 11/04/17 09:00 12/02/17 08:59 Dextrose (Dextrose 50%) STAT PRN IV Hypoglycemia 11/03/17 13:30 12/01/17 13:29 Gabapentin (Neurontin) 100 mg BID ORAL 11/03/17 18:00 12/02/17 08:59 11/03/17 17:00 Hydromorphone HCl (Dilaudid) 0.5 mg Q4H PRN IVP Severe Pain (Scale 7-10) 11/03/17 12:15 11/10/17 00:14 Insulin Aspart (NovoLOG) BEFORE MEALS AND HS SUBQ 11/03/17 16:30 12/02/17 06:29 Insulin Detemir (Levemir) 15 units BEDTIME SUBQ 11/03/17 21:00 12/01/17 20:59 11/03/17 21:04 Ondansetron HCl (Zofran) 4 mg Q6H PRN IVP Nausea & Vomiting 11/03/17 14:00 12/02/17 01:59 Piperacillin Sod/ Tazobactam Sod 3.375 gm/Sodium Chloride 110 ml @ 27.5 mls/hr Q12HR IVPB 11/03/17 21:00 11/09/17 20:59 11/03/17 21:00 Ranolazine (Ranexa ER 500mg) 500 mg EVERY 12 HOURS ORAL 11/03/17 21:00 12/02/17 08:59 11/03/17 21:01 Tamsulosin HCl (Flomax) 0.4 mg BEDTIME ORAL 11/03/17 21:00 12/03/17 20:59 11/03/17 21:01 Item Value Date Time Bedside Blood Glucose 106 mg/dl 11/03/17 2104 Bedside Blood Glucose 108 mg/dl 11/03/17 1630 Bedside Blood Glucose 95 mg/dl 11/03/17 1130 Bedside Blood Glucose 109 mg/dl 11/03/17 0616 CHARLEEN GEIGER Nov 03, 2017:52
[2017-11-04] VITALS: BP 143/70
[2017-11-04] MEDS: Albuterol 90mcg Inhaler 8gm INH SCH ×4 (00:55→21:04)
--- NOTE | 2017-11-04 02:45 | Consultation ---
DATE OF CONSULTATION: 11/03/2017 UROLOGY CONSULTATION CONSULTING PHYSICIAN: Andreas Stevenson M.D. ATTENDING/REFERRING PHYSICIAN: Robles Jones M.D. CHIEF COMPLAINT/HISTORY OF PRESENT ILLNESS: I was asked by Dr. Jones to evaluate this 77-year-old male regarding history of sepsis in the setting of a penile prosthesis and recent possible prostate infection. Briefly, the patient has history of a penile prosthesis for erectile dysfunction. He also had a previous hydrocele for which he underwent repair with Dr. Vickers approximately a year ago. He presented to his primary care physician with confusion and lethargy. He was started on some antibiotics and Flomax for possible prostate infection. The patient got worse the next day, however, and was brought to the emergency room here where he was admitted to the hospital. Given the above, I was asked to evaluate the patient. PAST MEDICAL HISTORY: 1. Erectile dysfunction. 2. Hydrocele. 3. Diabetes mellitus. PAST SURGICAL HISTORY: Penile prosthesis placement. MEDICATIONS: Please see the chart for current medications and administration details. Briefly, the patient is on Zosyn for antibiotic coverage. ALLERGIES: No known drug allergies. SOCIAL HISTORY: Unremarkable for tobacco, alcohol, or drug use. FAMILY HISTORY: Noncontributory. REVIEW OF SYSTEMS: A 12-system review of systems was limited as the patient cannot cooperate with questioning much, but was essentially unremarkable outside what is described above. PHYSICAL EXAMINATION: GENERAL: The patient is an elderly gentleman, awake, alert, oriented, on oxygen mask, in no obvious distress. HEENT: NC/AT. EOMI. NECK: Supple. Oropharynx clear. CHEST: Within normal limits. ABDOMEN: Soft, obese, nontender, and nondistended. GENITOURINARY: Reveals an uncircumcised male phallus with a penile prosthesis in place. There is also a Tellez catheter in place with clear yellow urine output. There are bilateral descended testes and cord structures. No masses or tenderness to palpation. The pump for the penile prosthesis is also palpable within the scrotum. There does not appear to be any evidence of prostatic infection or erosion. EXTREMITIES: Warm and well perfused. No cyanosis, clubbing, or edema. BACK: No CVA tenderness to percussion. NEUROLOGIC: Grossly nonfocal. LABORATORY DATA: White blood cell count 12.7 down from 16.8 on admission, hematocrit 29.4, platelets 179,000. Sodium 125, potassium 4.5, chloride 93, bicarbonate 20, BUN 61, creatinine 5.6, glucose 108, calcium 7.4. LFTs within normal limits. Urinalysis, specific gravity 1.020, pH 5.0. Dip test notable for 2+ leukocyte esterase and 3+ protein. Microanalysis with 5-10 white blood cells per high-powered field and few bacteria seen. Urine culture with no growth, final. Blood cultures with no growth, final. DIAGNOSTIC IMAGING: CT scan of the abdomen and pelvis reveals gallbladder wall edema and pericholecystic stranding concerning for acute cholecystitis either acalculous or due to occult calculi, there is cardiomegaly and diverticulosis, there is Tellez catheter present, there is a penile prosthesis reservoir in the pelvis, there is bilateral nonspecific perinephric fat stranding which may be chronic, there is bibasilar pulmonary parenchymal atelectasis and pleural effusions. Abdominal ultrasound, negative for gallstones, there is dilated common bile duct, there are bilateral pleural effusions, and the kidneys are within normal limits. ASSESSMENT AND PLAN: In summary, the patient is a 77-year-old gentleman with history and signs and symptoms of sepsis. He was brought here regarding the same what he failed oral antibiotics as an outpatient. He was started on intravenous antibiotics and has improved some. Urinalysis and urine cultures have not grown evidence of urinary tract infection. The patient does have history of a penile prosthesis which is in place, but there is no evidence of erosion, infection, or other malfunction. There is a Tellez catheter in place with clear yellow urine output. Laboratory data is also notable for renal failure. Diagnostic imaging reveals the findings as described above. I discussed these findings today with the patient and his family at the bedside. His penile prosthesis appears intact and there is no evidence of erosion or infection requiring emergent removal of the same. Furthermore, it is a bit puzzling as to what the source of his sepsis is as all of his culture results are negative including his urine culture. Diagnostic imaging with CT and ultrasound did not reveal any concerning urologic issue or problem. We can continue the patient on Zosyn as deemed appropriate by Infectious Disease. I will start the patient on some tamsulosin in an effort to help him urinate better. Once he is more stable and mobile, we can attempt to remove the catheter and see how he does without it. Thank you for allowing me to participate in the care of this nice gentleman. Please do not hesitate to contact me for any questions that you may further have regarding his care. I will be happy to continue to follow him with you as needed. Andreas Stevenson M.D. DR: Amanda JOB#: [id number] CC:
[2017-11-04 04:00] VITALS: BP 130/60
[2017-11-04] MEDS: NovoLOG Insulin Flexpen SUBQ SCH ×4 (06:30→21:13)
--- NOTE | 2017-11-04 07:00 | Consultation ---
DATE OF CONSULTATION: 11/03/2017 ENDOCRINOLOGY CONSULTATION CONSULTING PHYSICIAN: Carlos Ford M.D. REFERRING PHYSICIAN: Diana Lee M.D. REASON FOR CONSULTATION: I was asked to see this 77-year-old male by Dr. Robles Jones in Endocrinology consultation for evaluation and management of type 2 diabetes mellitus out of control _ PETINENT HISTORY:He presents with acute nausea and vomiting, is NPO. He is on Levemir 15 units at bedtime, insulin Levemir q.6 hours FH,PH And PROS-unable to do01:19. PHYSICAL EXAMINATION: GENERAL: No acute distress. VITAL SIGNS: Blood pressure 118/57, pulse 86, respiratory rate 20, and temperature 98 degrees. HEENT: Unremarkable. LUNGS: Clear. HEART: Heart sounds regular 04. EXTREMITIES: No edema. NEUROLOGIC: Cranial nerves II through XII are grossly intact. Reflexes intact, but toes are downgoing to plantar stimulation. LABORATORY DATA: glucose 226 mg%. ASSESSMENT Diabetes mellitus type 2, out of contro PLANS:patient remains on detemir 15 units at bedtime, and Novologsliding scale r q.6 hours. Hemoglobin A1c will be ordered in the a.m. He will be seen by Dr. Bauer at that time. Carlos Ford M.D. DR: ZA JOB#: [id number] CC: JANNET
[2017-11-04 08:00] VITALS: BP 136/61
[2017-11-04] MEDS: Piperacillin/Tazobactam 3.375 GM in NS 110 ML IVPB SCH ×2 (08:33→21:07)
[2017-11-04] MEDS: Aspirin EC 81mg tab ORAL SCH (08:33)
[2017-11-04] MEDS: Ranolazine 500mg tab ORAL SCH ×2 (08:33→21:08)
[2017-11-04 08:57] LABS: BASOPHILS % (AUTO) 1.4 % (0.0-2.0); EOSINOPHILS % (AUTO) 0.7 % (0.0-3.0); HEMATOCRIT 27.1 % (42.0-52.0); LYMPHOCYTES % (AUTO) 8.9 % (20.0-45.0); MEAN CORPUSCULAR VOLUME 80 FL (80-99); MONOCYTES % (AUTO) 10.6 % (1.0-10.0); NEUTROPHILS % (AUTO) 78.4 % (45.0-75.0); PLATELET COUNT 165 K/UL (150-450); RED BLOOD COUNT 3.37 M/UL (4.70-6.10); RED CELL DISTRIBUTION WIDTH 14.1 % (11.6-14.8); WHITE BLOOD COUNT 8.1 K/UL (4.8-10.8)
[2017-11-04 09:16] LABS: ANION GAP 12 mmol/L (5-15); BLOOD UREA NITROGEN 63 mg/dL (7-18); CALCIUM 7.5 MG/DL (8.5-10.1); CARBON DIOXIDE 20 MMOL/L (21-32); CHLORIDE 98 MMOL/L (98-107); CREATININE 5.1 MG/DL (0.55-1.30); POTASSIUM 4.3 MMOL/L (3.5-5.1); SODIUM 130 MMOL/L (136-145)
--- NOTE | 2017-11-04 09:35 | Pulmonology Progress Note ---
Assessment/Plan Assessment/Plan 1. Renal failure. Cr now 5 2. Septic shock. Resolved 3. Altered mental status. Improved; but still confused 4. Urinary tract infection. 5. Hyponatremia. 6. Malnutrition, moderate. 7. Possible cholecystitis 8. Diabetes mellitus. DISCUSSION: Off pressors now; continue to hold all antihypertensives. I will resume diabetes monitoring, IV antibiotics. I will follow as senior ui developer and engineer intern. IV fluids to be stopped; will add LAsix Has bilateral pleural effusions and hypoxemia Subjective Interval Events: None Constitutional: Reports: no symptoms HEENT: Repors: no symptoms Respiratory: Reports: no symptoms Cardiovascular: Reports: no symptoms Gastrointestinal/Abdominal: Reports: no symptoms Genitourinary: Reports: no symptoms Neurologic: Reports: no symptoms Allergies: Coded Allergies: No Known Allergies (Unverified , 11/01/17) Objective Last 24 Hour Vital Signs Date Time Temp Pulse Resp B/P (MAP) Pulse Ox O2 Delivery O2 Flow Rate FiO2 11/04/17 08:00 97.7 79 20 136/61 93 Non-Rebreather 15.0 100 11/04/17 07:36 74 26 95 Non-Rebreather 15.0 100 11/04/17 07:33 95 Non-Rebreather 15.0 100 11/04/17 07:33 76 26 Non-Rebreather 15.0 100 11/04/17 07:33 Non-Rebreather 15.0 100 11/04/17 07:33 76 26 95 Non-Rebreather 15.0 100 11/04/17 04:00 82 11/04/17 04:00 98.6 77 20 130/60 91 Non-Rebreather 15.0 100 11/04/17 00:58 82 22 91 Non-Rebreather 15.0 100 11/04/17 00:57 80 20 91 Non-Rebreather 15.0 100 11/04/17 00:00 98.2 88 22 143/70 91 Non-Rebreather 15.0 100 11/04/17 00:00 83 11/03/17 20:00 98.1 77 21 126/63 90 Non-Rebreather 15.0 100 11/03/17 20:00 78 11/03/17 19:41 Non-Rebreather 15.0 100 11/03/17 19:41 92 Non-Rebreather 15.0 100 11/03/17 19:40 93 22 Non-Rebreather 15.0 100 11/03/17 16:00 77 11/03/17 14:04 78 24 91 Non-Rebreather 15.0 100 11/03/17 13:55 79 26 87 Venturi Mask 14.0 55 11/03/17 13:33 98.1 81 22 135/68 83 11/03/17 12:00 88 19 146/66 90 11/03/17 12:00 85 11/03/17 11:00 90.4 92 19 149/63 84 11/03/17 10:00 83 19 147/63 84 Intake and Output 11/03/17 11/04/17 19:00 07:00 Intake Total 0 ml 160.0 ml Output Total 510 ml 1475 ml Balance -510 ml -1315.0 ml Intake Oral 0 ml 50 ml IV Total 110.0 ml Output Urine Total 510 ml 1475 ml # Voids 1 General Appearance: no acute distress HEENT: normocephalic Respiratory/Chest: chest wall non-tender, decreased breath sounds Cardiovascular: normal peripheral pulses, normal rate Abdomen: distended Extremities: no cyanosis Microbiology Date/Time Source Procedure Growth Status 11/01/17 12:20 Blood Blood Culture - Preliminary NO GROWTH AFTER 48 HOURS Resulted 11/01/17 12:10 Blood Blood Culture - Preliminary NO GROWTH AFTER 48 HOURS Resulted 11/01/17 18:00 Nasal Nares Left MRSA Culture - Final NO METHICILLIN RESISTANT STAPH AUREUS... Complete 11/01/17 12:50 Nasal Nares Influenza Types A,B Antigen (JUNG) - Final Complete 11/02/17 19:00 Indwelling Cath Urine Culture - Preliminary NO GROWTH AFTER 24 HOURS Resulted 11/01/17 18:00 Rectum VRE Culture - Final NO VANCOMYCIN RESISTANT ENTEROCOCCUS ... Complete Laboratory Tests 11/04/17 07:15: White Blood Count 8.1, Red Blood Count 3.37L, Hemoglobin 9.0L, Hematocrit 27.1L , Mean Corpuscular Volume 80, Mean Corpuscular Hemoglobin 26.8L, Mean Corpuscular Hemoglobin Concent 33.3, Red Cell Distribution Width 14.1, Platelet Count 165, Mean Platelet Volume 9.5, Neutrophils (%) (Auto) 78.4H, Lymphocytes ( %) (Auto) 8.9L, Monocytes (%) (Auto) 10.6H, Eosinophils (%) (Auto) 0.7, Basophils (%) (Auto) 1.4, Sodium Level 130L, Potassium Level 4.3, Chloride Level 98, Carbon Dioxide Level 20L, Anion Gap 12, Blood Urea Nitrogen 63H, Creatinine 5.1H, Estimat Glomerular Filtration Rate , Glucose Level 55L, Calcium Level 7.5L, Pro-B-Type Natriuretic Peptide 78022G Current Medications Medications (Trade) Dose Ordered Sig/Marie Route PRN Reason Start Time Stop Time Status Last Admin Dose Admin Acetaminophen/ Codeine Phosphate (Tylenol #3) 2 tab Q6H PRN ORAL Moderate Pain (Scale 4-6) 11/03/17 16:00 11/08/17 21:59 Albuterol Sulfate (Proventil MDI) 1 puff Q6HRT INH 11/03/17 19:00 12/03/17 18:59 11/04/17 07:32 Aspirin (Ecotrin) 81 mg DAILY ORAL 11/04/17 09:00 12/02/17 08:59 11/04/17 08:33 Atorvastatin Calcium (Lipitor) 80 mg QHS ORAL 11/03/17 21:00 12/02/17 20:59 11/03/17 21:01 Clopidogrel Bisulfate (Plavix) 75 mg DAILY ORAL 11/04/17 09:00 12/02/17 08:59 11/04/17 08:33 Dextrose (Dextrose 50%) STAT PRN IV Hypoglycemia 11/03/17 13:30 12/01/17 13:29 Gabapentin (Neurontin) 100 mg BID ORAL 11/03/17 18:00 12/02/17 08:59 11/04/17 08:33 Hydromorphone HCl (Dilaudid) 0.5 mg Q4H PRN IVP Severe Pain (Scale 7-10) 11/03/17 12:15 11/10/17 00:14 Insulin Aspart (NovoLOG) BEFORE MEALS AND HS SUBQ 11/03/17 16:30 12/02/17 06:29 Insulin Detemir (Levemir) 15 units BEDTIME SUBQ 11/03/17 21:00 12/01/17 20:59 11/03/17 21:04 Ondansetron HCl (Zofran) 4 mg Q6H PRN IVP Nausea & Vomiting 11/03/17 14:00 12/02/17 01:59 Piperacillin Sod/ Tazobactam Sod 3.375 gm/Sodium Chloride 110 ml @ 27.5 mls/hr Q12HR IVPB 11/03/17 21:00 11/09/17 20:59 11/04/17 08:33 Ranolazine (Ranexa ER 500mg) 500 mg EVERY 12 HOURS ORAL 11/03/17 21:00 12/02/17 08:59 11/04/17 08:33 Tamsulosin HCl (Flomax) 0.4 mg BEDTIME ORAL 11/03/17 21:00 12/03/17 20:59 11/03/17 21:01 Robles Jones MD Nov 04, 2017 09:35
--- NOTE | 2017-11-04 11:05 | Diagnostic Imaging Report ---
Indication: Shortness of breath Technique: One view of the chest Comparison: 11/01/2017 Findings: Interim considerable improvement of previously demonstrated interstitial edema, with minimal residual. The left hemidiaphragm is obscured, may indicate a small pleural fluid. The heart size is borderline enlarged Impression: Improved interstitial edema with slight degree of residual, over 3 days Probable small left pleural effusion
--- NOTE | 2017-11-04 11:45 | Progress Note ---
DATE: 11/03/2017 CARDIOLOGY PROGRESS NOTE SUBJECTIVE: Blood pressure has stabilized. The patient is off pressors. He is out of the intensive care unit. Monitored rhythm is sinus and sinus tachycardia. He remains on a nonrebreather mask with hypoxia. OBJECTIVE: VITAL SIGNS: Blood pressure 147/63, heart rate 83, and respiratory rate 19. Afebrile. LUNGS: Diminished breath sounds. HEART: Regular rhythm and rate. Normal S1, S2 with a fourth heart sound. ABDOMEN: Distended, but soft, tender in the right upper quadrant. EXTREMITIES: Trace dependent edema. LABORATORY DATA: White count 12.7, hemoglobin 9.8. Pro-natriuretic peptide 8900, BUN 61, creatinine 5.6, sodium 125, potassium 4.5, and bicarb 20. IMPRESSION: 1. Sepsis, shock. 2. Lactic acidosis, resolved. 3. Metabolic acidosis persists. 4. Acute renal failure. 5. Hyponatremia. 6. Moderate protein-calorie malnutrition. 7. Anemia. 8. Possible cholecystitis. PLAN: 1. Hold antihypertensives. 2. Continue antimicrobials. 3. DVT prophylaxis. 4. Insulin titration. 5. Surgical evaluation. 6. No diuresis at this time. 7. Monitor cardiorenal parameters and urine output. Gilmer Downing M.D. DR: LETA JOB#: [id number] CC:
[2017-11-04 12:00] VITALS: BP 115/62
--- NOTE | 2017-11-04 12:03 | General Surgery Progress Note ---
General Surgery-Progress Note Subjective Symptoms: improved, passing flatus Additional Comments Doing well. no complaints. very pleasant. no n/v/f/c. denies pain. has been resting. Objective Last 24 Hour Vital Signs Date Time Temp Pulse Resp B/P (MAP) Pulse Ox O2 Delivery O2 Flow Rate FiO2 11/04/17 08:00 97.7 79 20 136/61 93 Non-Rebreather 15.0 100 11/04/17 07:36 74 26 95 Non-Rebreather 15.0 100 11/04/17 07:33 95 Non-Rebreather 15.0 100 11/04/17 07:33 76 26 Non-Rebreather 15.0 100 11/04/17 07:33 Non-Rebreather 15.0 100 11/04/17 07:33 76 26 95 Non-Rebreather 15.0 100 11/04/17 04:00 82 11/04/17 04:00 98.6 77 20 130/60 91 Non-Rebreather 15.0 100 11/04/17 00:58 82 22 91 Non-Rebreather 15.0 100 11/04/17 00:57 80 20 91 Non-Rebreather 15.0 100 11/04/17 00:00 98.2 88 22 143/70 91 Non-Rebreather 15.0 100 11/04/17 00:00 83 11/03/17 20:00 98.1 77 21 126/63 90 Non-Rebreather 15.0 100 11/03/17 20:00 78 11/03/17 19:41 Non-Rebreather 15.0 100 11/03/17 19:41 92 Non-Rebreather 15.0 100 11/03/17 19:40 93 22 Non-Rebreather 15.0 100 11/03/17 16:00 77 11/03/17 14:04 78 24 91 Non-Rebreather 15.0 100 11/03/17 13:55 79 26 87 Venturi Mask 14.0 55 11/03/17 13:33 98.1 81 22 135/68 83 I&O Intake and Output 11/03/17 11/04/17 19:00 07:00 Intake Total 0 ml 160.0 ml Output Total 510 ml 1475 ml Balance -510 ml -1315.0 ml Intake Oral 0 ml 50 ml IV Total 110.0 ml Output Urine Total 510 ml 1475 ml # Voids 1 Drains: none Cardiovascular: RSR Respiratory: decreased breath sounds Abdomen: soft, distended, non-tender, present bowel sounds Extremities: edema, no tenderness, no cyanosis Laboratory Tests Test 11/04/17 07:15 11/04/17 09:35 White Blood Count 8.1 K/UL (4.8-10.8) Red Blood Count 3.37 M/UL (4.70-6.10) L Hemoglobin 9.0 G/DL (14.2-18.0) L Hematocrit 27.1 % (42.0-52.0) L Mean Corpuscular Volume 80 FL (80-99) Mean Corpuscular Hemoglobin 26.8 PG (27.0-31.0) L Mean Corpuscular Hemoglobin Concent 33.3 G/DL (32.0-36.0) Red Cell Distribution Width 14.1 % (11.6-14.8) Platelet Count 165 K/UL (150-450) Mean Platelet Volume 9.5 FL (6.5-10.1) Neutrophils (%) (Auto) 78.4 % (45.0-75.0) H Lymphocytes (%) (Auto) 8.9 % (20.0-45.0) L Monocytes (%) (Auto) 10.6 % (1.0-10.0) H Eosinophils (%) (Auto) 0.7 % (0.0-3.0) Basophils (%) (Auto) 1.4 % (0.0-2.0) Sodium Level 130 MMOL/L (136-145) L Potassium Level 4.3 MMOL/L (3.5-5.1) Chloride Level 98 MMOL/L (98-107) Carbon Dioxide Level 20 MMOL/L (21-32) L Anion Gap 12 mmol/L (5-15) Blood Urea Nitrogen 63 mg/dL (7-18) H Creatinine 5.1 MG/DL (0.55-1.30) H Estimat Glomerular Filtration Rate mL/min (>60) Glucose Level 55 MG/DL (74-106) L Calcium Level 7.5 MG/DL (8.5-10.1) L Pro-B-Type Natriuretic Peptide 46377 pg/mL (0-125) H Arterial Blood pH 7.360 (7.350-7.450) Arterial Blood Partial Pressure CO2 37.2 mmHg (35.0-45.0) Arterial Blood Partial Pressure O2 69.5 mmHg (75.0-100.0) L Arterial Blood HCO3 20.9 mmol/L (22.0-26.0) L Arterial Blood Oxygen Saturation 92.8 % (92.0-98.0) Arterial Blood Base Excess -4.0 Bryce Test Positive Plan Problems: (1) Septic shock Assessment & Plan: 77 year old male presented in septic shock. initially in ICU on pressors but with resuscitation has since weaned off pressors and downgraded. on broad spectrum IV Abx. possible etiology UTI vs cholecystitis vs other. Leukocytosis resolved. afebrile, HD stable, exam benign. Labs reviewed and renal function improving. LFT's normal. no abdominal pain or RUQ pain. CT demonstrated possible acalculous cholecystitis with edema and pericholecystic stranding. Ultrasound completed and similar findings not confirmed. US demonstrates borderline thickening of GB wall, no stones, no distention, normal biliary tract. Unlikely etiology to be acute acalculous cholecystitis given ultrasound findings , exam, and labs. could consider HIDA but clinical suspicion low. No acute surgical intervention necessary. will follow exam okay for diet ambulate and oob thank you for this consultation Red Lima Nov 04, 2017 12:03
[2017-11-04 16:00] VITALS: BP 130/60
--- NOTE | 2017-11-04 16:38 | Infectious Diseases Prog Note ---
Assessment/Plan Assessment/Plan ASSESSMENT AND PLAN: 1. sepsis, shock, ? uti, ? 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 Acute renal failure, anemia, Ch, chf/pulmonary edema - ? renal evaluation , cardiology consult noted 3. Diabetes. 4. GIB 5. Possible hyperlipidemia. He is on Lipitor. 6. Hyponatremia. 7. No known allergies. 8. Social history negative. 9. Family history noncontributory. 10. MAR was noted. 11. Case was discussed with RN. 12. Continue treatment per primary consultants. 13. Case was discussed with the patient's family. 14. patient now in telemetry Subjective Constitutional: Denies: fever HEENT: Reports: congestion - less Respiratory: Reports: shortness of breath Cardiovascular: Denies: chest pain Gastrointestinal/Abdominal: Denies: nausea, vomiting, diarrhea Genitourinary: Denies: dysuria, hematuria Neurologic: Denies: headache, numbness Psychiatric: Denies: depression Skin: Denies: rash Hematologic: Denies: bleeding Musculoskeletal: Denies: pain Allergies: Coded Allergies: No Known Allergies (Unverified , 11/01/17) Objective Vital Signs Last 24 Hour Vital Signs Date Time Temp Pulse Resp B/P (MAP) Pulse Ox O2 Delivery O2 Flow Rate FiO2 11/04/17 16:00 97.7 82 20 130/60 97 Non-Rebreather 15.0 100 11/04/17 13:12 78 24 93 Non-Rebreather 15.0 100 11/04/17 13:11 78 24 93 Non-Rebreather 15.0 100 11/04/17 12:00 97.7 69 20 115/62 94 Non-Rebreather 15.0 100 11/04/17 12:00 73 11/04/17 08:00 73 11/04/17 08:00 97.7 79 20 136/61 93 Non-Rebreather 15.0 100 11/04/17 07:36 74 26 95 Non-Rebreather 15.0 100 11/04/17 07:33 95 Non-Rebreather 15.0 100 11/04/17 07:33 76 26 Non-Rebreather 15.0 100 11/04/17 07:33 Non-Rebreather 15.0 100 11/04/17 07:33 76 26 95 Non-Rebreather 15.0 100 11/04/17 04:00 82 11/04/17 04:00 98.6 77 20 130/60 91 Non-Rebreather 15.0 100 11/04/17 00:58 82 22 91 Non-Rebreather 15.0 100 11/04/17 00:57 80 20 91 Non-Rebreather 15.0 100 11/04/17 00:00 98.2 88 22 143/70 91 Non-Rebreather 15.0 100 11/04/17 00:00 83 11/03/17 20:00 98.1 77 21 126/63 90 Non-Rebreather 15.0 100 11/03/17 20:00 78 11/03/17 19:41 Non-Rebreather 15.0 100 11/03/17 19:41 92 Non-Rebreather 15.0 100 11/03/17 19:40 93 22 Non-Rebreather 15.0 100 Height (Feet): 5 Height (Inches): 4.00 Weight (Pounds): 191 General Appearance: no acute distress HEENT: normocephalic, atraumatic, anicteric, mucous membranes moist, EOMI, pharynx normal, supple, no JVD Respiratory/Chest: crackles/rales, rhonchi - bilaterally Cardiovascular: normal rate, regular rhythm, no gallop/murmur, no JVD Abdomen: normal bowel sounds, soft, non tender, no organomegaly, non distended Genitourinary: other - + ch - urine clear Extremities: no cyanosis Skin: no rash Neurologic/Psychiatric: 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 Findings are concerning for acute cholecystitis, either acalculous or due to occult calculi. Recommend sonographic correlation Bilateral basilar pulmonary parenchymal atelectasis and bilateral pleural effusions. Generalized interstitial septal thickening is concerning for pulmonary edema Cardiomegaly Diverticulosis. No evidence of diverticulitis. Normal: Ch catheter Penile prosthesis reservoir noted in the pelvis Nonspecific bilateral perinephric fat stranding, significance indeterminate although suspect chronic Border line chf This agrees with the preliminary interpretation provided overnight by [facility]erad[facility] service. The CT scanner at [facility] is accredited by the [employer] and the scans are performed using protocols designed to limit radiation exposure to as low as reasonably achievable to attain images of sufficient resolution adequate for diagnostic evaluation. Chest x-ray - [facility] abdomen - Impression: Negative for gallstones. There is borderline gallbladder wall thickening, significance uncertain. Consider nuclear medicine hepatobiliary scan if there is high clinical suspicion for acute acalculous cholecystitis Dilated common bile duct, more evident than on prior CT scan of 11/01/2017. Downstream obstruction with excludable. Correlate with liver function tests Bilateral pleural effusions Chest x-ray - 11/04 - Impression: Improved interstitial edema with slight degree of residual, over 3 days Probable small left pleural effusion Hida - pending Microbiology Date/Time Source Procedure Growth Status 11/01/17 12:20 Blood Blood Culture - Preliminary NO GROWTH AFTER 48 HOURS Resulted 11/01/17 18:00 Nasal Nares Left MRSA Culture - Final NO METHICILLIN RESISTANT STAPH AUREUS... Complete 11/02/17 19:00 Indwelling Cath Urine Culture - Preliminary NO GROWTH AFTER 24 HOURS Resulted 11/01/17 18:00 Rectum VRE Culture - Final NO VANCOMYCIN RESISTANT ENTEROCOCCUS ... Complete Labs Test 11/01/17 20:30 11/02/17 05:55 11/03/17 05:00 11/04/17 07:15 Arterial Blood pH 7.353 (7.350-7.450) Arterial Blood Partial Pressure CO2 35.2 mmHg (35.0-45.0) Arterial Blood Partial Pressure O2 62.2 mmHg (75.0-100.0) Arterial Blood HCO3 19.1 mmol/L (22.0-26.0) Arterial Blood Oxygen Saturation 91.8 % (92.0-98.0) Arterial Blood Base Excess -5.7 Bryce Test Positive White Blood Count 15.6 K/UL (4.8-10.8) 12.7 K/UL (4.8-10.8) 8.1 K/UL (4.8-10.8) Red Blood Count 3.46 M/UL (4.70-6.10) 3.63 M/UL (4.70-6.10) 3.37 M/UL (4.70-6.10) Hemoglobin 9.2 G/DL (14.2-18.0) 9.8 G/DL (14.2-18.0) 9.0 G/DL (14.2-18.0) Hematocrit 28.1 % (42.0-52.0) 29.4 % (42.0-52.0) 27.1 % (42.0-52.0) Mean Corpuscular Volume 81 FL (80-99) 81 FL (80-99) 80 FL (80-99) Mean Corpuscular Hemoglobin 26.6 PG (27.0-31.0) 26.9 PG (27.0-31.0) 26.8 PG (27.0-31.0) Mean Corpuscular Hemoglobin Concent 32.8 G/DL (32.0-36.0) 33.2 G/DL (32.0-36.0) 33.3 G/DL (32.0-36.0) Red Cell Distribution Width 14.1 % (11.6-14.8) 14.3 % (11.6-14.8) 14.1 % (11.6-14.8) Platelet Count 159 K/UL (150-450) 179 K/UL (150-450) 165 K/UL (150-450) Mean Platelet Volume 10.6 FL (6.5-10.1) 10.1 FL (6.5-10.1) 9.5 FL (6.5-10.1) Neutrophils (%) (Auto) % (45.0-75.0) % (45.0-75.0) 78.4 % (45.0-75.0) Lymphocytes (%) (Auto) % (20.0-45.0) % (20.0-45.0) 8.9 % (20.0-45.0) Monocytes (%) (Auto) % (1.0-10.0) % (1.0-10.0) 10.6 % (1.0-10.0) Eosinophils (%) (Auto) % (0.0-3.0) % (0.0-3.0) 0.7 % (0.0-3.0) Basophils (%) (Auto) % (0.0-2.0) % (0.0-2.0) 1.4 % (0.0-2.0) Differential Total Cells Counted 100 Neutrophils % (Manual) 91 % (45-75) Lymphocytes % (Manual) 5 % (20-45) Monocytes % (Manual) 4 % (1-10) Eosinophils % (Manual) 0 % (0-3) Basophils % (Manual) 0 % (0-2) Band Neutrophils 0 % (0-8) Platelet Estimate Adequate Platelet Morphology Normal Hypochromasia 1+ Sodium Level 126 MMOL/L (136-145) 125 MMOL/L (136-145) 130 MMOL/L (136-145) Potassium Level 4.5 MMOL/L (3.5-5.1) 4.5 MMOL/L (3.5-5.1) 4.3 MMOL/L (3.5-5.1) Chloride Level 93 MMOL/L (98-107) 93 MMOL/L (98-107) 98 MMOL/L (98-107) Carbon Dioxide Level 21 MMOL/L (21-32) 20 MMOL/L (21-32) 20 MMOL/L (21-32) Anion Gap 12 mmol/L (5-15) 13 mmol/L (5-15) 12 mmol/L (5-15) Blood Urea Nitrogen 60 mg/dL (7-18) 61 mg/dL (7-18) 63 mg/dL (7-18) Creatinine 4.7 MG/DL (0.55-1.30) 5.6 MG/DL (0.55-1.30) 5.1 MG/DL (0.55-1.30) Estimat Glomerular Filtration Rate mL/min (>60) mL/min (>60) mL/min (>60) Glucose Level 237 MG/DL (74-106) 108 MG/DL (74-106) 55 MG/DL (74-106) Calcium Level 7.8 MG/DL (8.5-10.1) 7.4 MG/DL (8.5-10.1) 7.5 MG/DL (8.5-10.1) Ionized Calcium (Measured) 1.03 mmol/L (1.10-1.35) Total Bilirubin 0.4 MG/DL (0.2-1.0) 0.4 MG/DL (0.2-1.0) Aspartate Amino Transf (AST/SGOT) 15 U/L (15-37) 14 U/L (15-37) Alanine Aminotransferase (ALT/SGPT) 17 U/L (12-78) 16 U/L (12-78) Alkaline Phosphatase 96 U/L (46-116) 96 U/L (46-116) Total Protein 6.6 G/DL (6.4-8.2) 7.0 G/DL (6.4-8.2) Albumin 2.6 G/DL (3.4-5.0) 2.6 G/DL (3.4-5.0) Globulin 4.0 g/dL 4.4 g/dL Albumin/Globulin Ratio 0.6 (1.0-2.7) 0.6 (1.0-2.7) Hemoglobin A1c 10.4 % (4.3-6.0) Lactic Acid Level 1.40 mmol/L (0.66-2.22) Pro-B-Type Natriuretic Peptide 8925 pg/mL (0-125) 70623 pg/mL (0-125) Test 11/04/17 09:35 Arterial Blood pH 7.360 (7.350-7.450) Arterial Blood Partial Pressure CO2 37.2 mmHg (35.0-45.0) Arterial Blood Partial Pressure O2 69.5 mmHg (75.0-100.0) Arterial Blood HCO3 20.9 mmol/L (22.0-26.0) Arterial Blood Oxygen Saturation 92.8 % (92.0-98.0) Arterial Blood Base Excess -4.0 Bryce Test Positive Microbiology Date/Time Source Procedure Growth Status 11/01/17 18:00 Nasal Nares Left MRSA Culture - Final NO METHICILLIN RESISTANT STAPH AUREUS... Complete 11/02/17 19:00 Indwelling Cath Urine Culture - Preliminary NO GROWTH AFTER 24 HOURS Resulted 11/01/17 18:00 Rectum VRE Culture - Final NO VANCOMYCIN RESISTANT ENTEROCOCCUS ... Complete Laboratory Tests Test 11/04/17 07:15 11/04/17 09:35 White Blood Count 8.1 K/UL (4.8-10.8) Red Blood Count 3.37 M/UL (4.70-6.10) L Hemoglobin 9.0 G/DL (14.2-18.0) L Hematocrit 27.1 % (42.0-52.0) L Mean Corpuscular Volume 80 FL (80-99) Mean Corpuscular Hemoglobin 26.8 PG (27.0-31.0) L Mean Corpuscular Hemoglobin Concent 33.3 G/DL (32.0-36.0) Red Cell Distribution Width 14.1 % (11.6-14.8) Platelet Count 165 K/UL (150-450) Mean Platelet Volume 9.5 FL (6.5-10.1) Neutrophils (%) (Auto) 78.4 % (45.0-75.0) H Lymphocytes (%) (Auto) 8.9 % (20.0-45.0) L Monocytes (%) (Auto) 10.6 % (1.0-10.0) H Eosinophils (%) (Auto) 0.7 % (0.0-3.0) Basophils (%) (Auto) 1.4 % (0.0-2.0) Sodium Level 130 MMOL/L (136-145) L Potassium Level 4.3 MMOL/L (3.5-5.1) Chloride Level 98 MMOL/L (98-107) Carbon Dioxide Level 20 MMOL/L (21-32) L Anion Gap 12 mmol/L (5-15) Blood Urea Nitrogen 63 mg/dL (7-18) H Creatinine 5.1 MG/DL (0.55-1.30) H Estimat Glomerular Filtration Rate mL/min (>60) Glucose Level 55 MG/DL (74-106) L Calcium Level 7.5 MG/DL (8.5-10.1) L Pro-B-Type Natriuretic Peptide 34368 pg/mL (0-125) H Arterial Blood pH 7.360 (7.350-7.450) Arterial Blood Partial Pressure CO2 37.2 mmHg (35.0-45.0) Arterial Blood Partial Pressure O2 69.5 mmHg (75.0-100.0) L Arterial Blood HCO3 20.9 mmol/L (22.0-26.0) L Arterial Blood Oxygen Saturation 92.8 % (92.0-98.0) Arterial Blood Base Excess -4.0 Bryce Test Positive Current Medications Medications (Trade) Dose Ordered Sig/Marie Route PRN Reason Start Time Stop Time Status Last Admin Dose Admin Acetaminophen/ Codeine Phosphate (Tylenol #3) 2 tab Q6H PRN ORAL Moderate Pain (Scale 4-6) 11/03/17 16:00 11/08/17 21:59 Albuterol Sulfate (Proventil MDI) 1 puff Q6HRT INH 11/03/17 19:00 12/03/17 18:59 11/04/17 13:11 Aspirin (Ecotrin) 81 mg DAILY ORAL 11/04/17 09:00 12/02/17 08:59 11/04/17 08:33 Atorvastatin Calcium (Lipitor) 80 mg QHS ORAL 11/03/17 21:00 12/02/17 20:59 11/03/17 21:01 Clopidogrel Bisulfate (Plavix) 75 mg DAILY ORAL 11/04/17 09:00 12/02/17 08:59 11/04/17 08:33 Dextrose (Dextrose 50%) STAT PRN IV Hypoglycemia 11/03/17 13:30 12/01/17 13:29 Gabapentin (Neurontin) 100 mg BID ORAL 11/03/17 18:00 12/02/17 08:59 11/04/17 08:33 Hydromorphone HCl (Dilaudid) 0.5 mg Q4H PRN IVP Severe Pain (Scale 7-10) 11/03/17 12:15 11/10/17 00:14 Insulin Aspart (NovoLOG) BEFORE MEALS AND HS SUBQ 11/03/17 16:30 12/02/17 06:29 Insulin Detemir (Levemir) 15 units BEDTIME SUBQ 11/03/17 21:00 12/01/17 20:59 11/03/17 21:04 Morphine Sulfate (Morphine Sulfate) 2 mg ONCE ONCE IVP 11/05/17 08:00 11/05/17 08:01 Ondansetron HCl (Zofran) 4 mg Q6H PRN IVP Nausea & Vomiting 11/03/17 14:00 12/02/17 01:59 Piperacillin Sod/ Tazobactam Sod 3.375 gm/Sodium Chloride 110 ml @ 27.5 mls/hr Q12HR IVPB 2/5/18 21:00 11/09/17 20:59 11/04/17 08:33 Ranolazine (Ranexa ER 500mg) 500 mg EVERY 12 HOURS ORAL 11/03/17 21:00 12/02/17 08:59 11/04/17 08:33 Tamsulosin HCl (Flomax) 0.4 mg BEDTIME ORAL 11/03/17 21:00 12/03/17 20:59 11/03/17 21:01 CYRUS ELISE Nov 04, 2017 16:38
[2017-11-04 20:00] VITALS: BP 140/62
[2017-11-04] MEDS: Tamsulosin 0.4mg cap ORAL SCH (21:08)
[2017-11-04] MEDS: Atorvastatin 80mg tab ORAL SCH (21:08)
[2017-11-04] MEDS: Levemir Flexpen SUBQ SCH (21:12)
[2017-11-05] VITALS (7 sets, daily range): BP systolic 124–151; BP diastolic 59–74
[2017-11-05] MEDS: Albuterol 90mcg Inhaler 8gm INH SCH ×4 (00:18→19:00)
--- NOTE | 2017-11-05 02:45 | Progress Note ---
DATE: 11/04/2017 CARDIOLOGY PROGRESS NOTE SUBJECTIVE: The patient is with stabilizing blood pressure parameters. Shock has recovered and he is out of the intensive care unit. He remains on broad-spectrum antimicrobials. OBJECTIVE: VITAL SIGNS: Blood pressure 130/60, pulse 82, respirations 20, and afebrile. LUNGS: With bilateral rhonchi. CARDIAC: Regular rhythm and rate. Normal S1, S2 with no murmur. ABDOMEN: Soft with no distention or tenderness. EXTREMITIES: Tellez catheter. No edema. LABORATORY DATA: White count 8.1, hemoglobin 9. Sodium 130, potassium 4.3, bicarbonate 20, BUN 63, and creatinine 5.1. Pro-natriuretic peptide is 10,000. ABG, 7.36, 37, and 69. IMPRESSION: 1. Sepsis with recovered shock. 2. Possible cholecystitis. 3. Possible urinary tract infection. 4. Acute renal failure due to acute tubular necrosis. 5. Elevated natriuretic peptide assay, secondary to renal failure and component of diastolic congestive heart failure. PLAN: 1. Antimicrobials. 2. Hydration by IV route. 3. No diuretics at this time. 4. Continue cardiac monitoring. 5. Surgical input noted. 6. Surgical intervention being considered. 7. May consider renal dose dopamine if renal parameters failed to improve. Gilmer Downing M.D. : LIEN JOB#: [id number] CC:
[2017-11-05] MEDS: NovoLOG Insulin Flexpen SUBQ SCH ×4 (07:18→22:27)
[2017-11-05 07:48] LABS: EOSINOPHILS % (AUTO) 3.1 % (0.0-3.0); HEMATOCRIT 26.8 % (42.0-52.0); HEMOGLOBIN 9.1 G/DL (14.2-18.0); MEAN CORPUSCULAR VOLUME 80 FL (80-99); MONOCYTES % (AUTO) 9.6 % (1.0-10.0); NEUTROPHILS % (AUTO) 74.3 % (45.0-75.0); PLATELET COUNT 190 K/UL (150-450); RED BLOOD COUNT 3.37 M/UL (4.70-6.10); WHITE BLOOD COUNT 7.8 K/UL (4.8-10.8)
[2017-11-05] MEDS ORDERED: Morphine Sulfate 2mg/ml Inj IVP ONE (08:00)
[2017-11-05 08:10] LABS: ANION GAP 10 mmol/L (5-15); BLOOD UREA NITROGEN 65 mg/dL (7-18); CALCIUM 7.6 MG/DL (8.5-10.1); CARBON DIOXIDE 24 MMOL/L (21-32); CHLORIDE 103 MMOL/L (98-107); CREATININE 4.5 MG/DL (0.55-1.30); POTASSIUM 4.5 MMOL/L (3.5-5.1); SODIUM 137 MMOL/L (136-145)
--- NOTE | 2017-11-05 08:14 | Pulmonology Progress Note ---
Assessment/Plan Assessment/Plan 1. Renal failure. Cr now 5; renal consult requested; may need HD 2. Septic shock. Resolved 3. Altered mental status. Improved; but still confused 4. Urinary tract infection. 5. Hyponatremia. 6. Malnutrition, moderate. 7. Possible cholecystitis 8. Diabetes mellitus. 10. Pulm edema DISCUSSION: Off pressors now; continue to hold all antihypertensives. I will resume diabetes monitoring, IV antibiotics. I will follow as principal gifts officer and health physics technician. IV fluids have been stopped; will continue LAsomari Has bilateral pleural effusions and hypoxemia Subjective Interval Events: Remains on NRBM; saturating 95%; ABG and CXR noted Constitutional: Reports: no symptoms HEENT: Repors: no symptoms Respiratory: Reports: dry cough Cardiovascular: Reports: no symptoms Gastrointestinal/Abdominal: Reports: no symptoms Genitourinary: Reports: no symptoms Allergies: Coded Allergies: No Known Allergies (Unverified , 11/01/17) Objective Last 24 Hour Vital Signs Date Time Temp Pulse Resp B/P (MAP) Pulse Ox O2 Delivery O2 Flow Rate FiO2 11/05/17 04:00 75 11/05/17 04:00 97.7 72 18 124/60 100 Non-Rebreather 15.0 100 11/05/17 00:20 66 18 96 Non-Rebreather 15.0 100 11/05/17 00:19 66 18 95 Non-Rebreather 15.0 100 11/05/17 00:00 78 11/05/17 00:00 98.1 73 20 132/59 100 Non-Rebreather 15.0 100 11/04/17 21:03 Non-Rebreather 15.0 100 11/04/17 21:03 95 Non-Rebreather 15.0 100 11/04/17 20:30 68 20 96 Non-Rebreather 15.0 100 11/04/17 20:30 68 20 96 Non-Rebreather 15.0 100 11/04/17 20:00 77 11/04/17 20:00 98.1 81 20 140/62 99 Non-Rebreather 15.0 100 11/04/17 16:00 78 11/04/17 16:00 97.7 82 20 130/60 97 Non-Rebreather 15.0 100 11/04/17 13:12 78 24 93 Non-Rebreather 15.0 100 11/04/17 13:11 78 24 93 Non-Rebreather 15.0 100 11/04/17 12:00 97.7 69 20 115/62 94 Non-Rebreather 15.0 100 11/04/17 12:00 73 Intake and Output 11/04/17 11/05/17 19:00 07:00 Intake Total 360 ml Output Total 600 ml 1500 ml Balance -240 ml -1500 ml Intake Oral 360 ml Output Urine Total 600 ml 1500 ml General Appearance: no acute distress HEENT: normocephalic Respiratory/Chest: chest wall non-tender, lungs clear Cardiovascular: normal peripheral pulses, normal rate Abdomen: normal bowel sounds Extremities: no cyanosis Microbiology Date/Time Source Procedure Growth Status 11/02/17 19:00 Indwelling Cath Urine Culture - Final NO GROWTH AFTER 48 HOURS Complete Laboratory Tests 11/04/17 09:35: Arterial Blood pH 7.360, Arterial Blood Partial Pressure CO2 37.2, Arterial Blood Partial Pressure O2 69.5L, Arterial Blood HCO3 20.9L, Arterial Blood Oxygen Saturation 92.8, Arterial Blood Base Excess -4.0, Bryce Test Positive 11/05/17 06:25: White Blood Count 7.8, Red Blood Count 3.37L, Hemoglobin 9.1L, Hematocrit 26.8L , Mean Corpuscular Volume 80, Mean Corpuscular Hemoglobin 26.9L, Mean Corpuscular Hemoglobin Concent 33.8, Red Cell Distribution Width 14.0, Platelet Count 190, Mean Platelet Volume 10.7H, Neutrophils (%) (Auto) 74.3, Lymphocytes (%) (Auto) 11.0L, Monocytes (%) (Auto) 9.6, Eosinophils (%) (Auto) 3.1H, Basophils (%) (Auto) 2.0, Sodium Level 137, Potassium Level 4.5, Chloride Level 103, Carbon Dioxide Level 24, Anion Gap 10, Blood Urea Nitrogen 65H, Creatinine 4.5H, Estimat Glomerular Filtration Rate , Glucose Level 50L, Calcium Level 7.6L Current Medications Medications (Trade) Dose Ordered Sig/Marie Route PRN Reason Start Time Stop Time Status Last Admin Dose Admin Acetaminophen/ Codeine Phosphate (Tylenol #3) 2 tab Q6H PRN ORAL Moderate Pain (Scale 4-6) 11/03/17 16:00 11/08/17 21:59 Albuterol Sulfate (Proventil MDI) 1 puff Q6HRT INH 11/03/17 19:00 12/03/17 18:59 11/05/17 00:18 Aspirin (Ecotrin) 81 mg DAILY ORAL 11/04/17 09:00 12/02/17 08:59 11/04/17 08:33 Atorvastatin Calcium (Lipitor) 80 mg QHS ORAL 11/03/17 21:00 12/02/17 20:59 11/04/17 21:08 Clopidogrel Bisulfate (Plavix) 75 mg DAILY ORAL 11/04/17 09:00 12/02/17 08:59 11/04/17 08:33 Dextrose (Dextrose 50%) STAT PRN IV Hypoglycemia 11/03/17 13:30 12/01/17 13:29 Gabapentin (Neurontin) 100 mg BID ORAL 11/03/17 18:00 12/02/17 08:59 11/04/17 17:43 Hydromorphone HCl (Dilaudid) 0.5 mg Q4H PRN IVP Severe Pain (Scale 7-10) 11/03/17 12:15 11/10/17 00:14 Insulin Aspart (NovoLOG) BEFORE MEALS AND HS SUBQ 11/03/17 16:30 12/02/17 06:29 11/04/17 21:13 Insulin Detemir (Levemir) 15 units BEDTIME SUBQ 11/03/17 21:00 12/01/17 20:59 11/04/17 21:12 Ondansetron HCl (Zofran) 4 mg Q6H PRN IVP Nausea & Vomiting 11/03/17 14:00 12/02/17 01:59 11/04/17 17:05 Piperacillin Sod/ Tazobactam Sod 3.375 gm/Sodium Chloride 110 ml @ 27.5 mls/hr Q12HR IVPB 11/03/17 21:00 11/09/17 20:59 11/04/17 21:07 Ranolazine (Ranexa ER 500mg) 500 mg EVERY 12 HOURS ORAL 11/03/17 21:00 12/02/17 08:59 11/04/17 21:08 Tamsulosin HCl (Flomax) 0.4 mg BEDTIME ORAL 11/03/17 21:00 12/03/17 20:59 11/04/17 21:08 Robles Jones MD Nov 05, 2017 08:14
[2017-11-05] MEDS: Piperacillin/Tazobactam 3.375 GM in NS 110 ML IVPB SCH ×2 (10:00→22:18)
[2017-11-05] MEDS: Aspirin EC 81mg tab ORAL SCH (10:01)
[2017-11-05] MEDS: Ranolazine 500mg tab ORAL SCH ×2 (10:01→22:18)
--- NOTE | 2017-11-05 10:45 | Diagnostic Imaging Report ---
Indication: 77-year-old male with abdominal pain Technique: IV administration 5.4 mCi 99m Technetium mebrofenin. Serial images obtained over the abdomen Comparison: Reference made to ultrasound dated 11/02/2017 Findings: Prompt hepatic tracer uptake is demonstrated. Extra hepatic ducts are visualized and 10 minutes. Tracer is seen within the duodenum at 16 minutes. The gallbladder begins to accumulate tracer at 60 minutes, and progressively accumulates tracer Impression: Negative. No evidence of cystic duct or common bile duct obstruction
--- NOTE | 2017-11-05 10:57 | Infectious Diseases Prog Note ---
Assessment/Plan Assessment/Plan ASSESSMENT AND PLAN: 1. sepsis, shock, ? uti, ? cholecystitis on ct scan, leukocytosis, sob, edema, arf - clinically better, leukocytosis resolved - zosyn for now - day # 4 abx - urine culture negative but patient on abx prior to urine culture - bp better, no pressors - hida - negative, cholecystitis less likely 2. Acute renal failure, anemia, Ch, chf/pulmonary edema - ? renal evaluation , cardiology consult noted 3. Diabetes. 4. GIB 5. Possible hyperlipidemia. He is on Lipitor. 6. Hyponatremia. 7. No known allergies. 8. Social history negative. 9. Family history noncontributory. 10. MAR was noted. 11. Case was discussed with RN. 12. Continue treatment per primary consultants. 13. Case was discussed with the patient's family. 14. patient now in telemetry Subjective Constitutional: Reports: fatigue, Denies: fever HEENT: Reports: congestion - less Respiratory: Reports: shortness of breath - less Gastrointestinal/Abdominal: Denies: nausea, vomiting, diarrhea Genitourinary: Reports: other - + ch Neurologic: Denies: headache Psychiatric: Denies: depression Skin: Denies: rash Hematologic: Denies: bleeding Musculoskeletal: Denies: pain Allergies: Coded Allergies: No Known Allergies (Unverified , 11/01/17) Objective Vital Signs Last 24 Hour Vital Signs Date Time Temp Pulse Resp B/P (MAP) Pulse Ox O2 Delivery O2 Flow Rate FiO2 11/05/17 10:05 97.7 72 18 146/66 100 Non-Rebreather 15.0 97 11/05/17 08:00 70 11/05/17 08:00 97.8 72 18 132/70 99 Non-Rebreather 15.0 100 11/05/17 04:00 75 11/05/17 04:00 97.7 72 18 124/60 100 Non-Rebreather 15.0 100 11/05/17 00:20 66 18 96 Non-Rebreather 15.0 100 11/05/17 00:19 66 18 95 Non-Rebreather 15.0 100 11/05/17 00:00 78 11/05/17 00:00 98.1 73 20 132/59 100 Non-Rebreather 15.0 100 11/04/17 21:03 Non-Rebreather 15.0 100 11/04/17 21:03 95 Non-Rebreather 15.0 100 11/04/17 20:30 68 20 96 Non-Rebreather 15.0 100 11/04/17 20:30 68 20 96 Non-Rebreather 15.0 100 11/04/17 20:00 77 11/04/17 20:00 98.1 81 20 140/62 99 Non-Rebreather 15.0 100 11/04/17 16:00 78 11/04/17 16:00 97.7 82 20 130/60 97 Non-Rebreather 15.0 100 11/04/17 13:12 78 24 93 Non-Rebreather 15.0 100 11/04/17 13:11 78 24 93 Non-Rebreather 15.0 100 11/04/17 12:00 97.7 69 20 115/62 94 Non-Rebreather 15.0 100 11/04/17 12:00 73 Height (Feet): 5 Height (Inches): 4.00 Weight (Pounds): 184 General Appearance: no acute distress HEENT: normocephalic, atraumatic, anicteric, mucous membranes moist Respiratory/Chest: lungs clear, normal breath sounds, no respiratory distress, no accessory muscle use Cardiovascular: normal rate, regular rhythm, no gallop/murmur, no JVD Abdomen: normal bowel sounds, soft, non tender, no organomegaly, non distended Genitourinary: other - + ch - urine clear Extremities: no cyanosis Skin: no rash Neurologic/Psychiatric: pay per click strategist II-XII grossly normal, alert, oriented x 3, responsive Lymphatic: no neck adenopathy Musculoskeletal: no effusion Objective CT abdomen and pelvis: Impression: Gallbladder wall edema and pericholecystic stranding, without CT evidence of cholelithiasis. Findings are concerning for acute cholecystitis, either acalculous or due to occult calculi. Recommend sonographic correlation Bilateral basilar pulmonary parenchymal atelectasis and bilateral pleural effusions. Generalized interstitial septal thickening is concerning for pulmonary edema Cardiomegaly Diverticulosis. No evidence of diverticulitis. Normal: Ch catheter Penile prosthesis reservoir noted in the pelvis Nonspecific bilateral perinephric fat stranding, significance indeterminate although suspect chronic Border line chf This agrees with the preliminary interpretation provided overnight by [facility] service. The CT scanner at [facility] is accredited by the [employer] and the scans are performed using protocols designed to limit radiation exposure to as low as reasonably achievable to attain images of sufficient resolution adequate for diagnostic evaluation. Chest x-ray - chf us abdomen - Impression: Negative for gallstones. There is borderline gallbladder wall thickening, significance uncertain. Consider nuclear medicine hepatobiliary scan if there is high clinical suspicion for acute acalculous cholecystitis Dilated common bile duct, more evident than on prior CT scan of 11/01/2017. Downstream obstruction with excludable. Correlate with liver function tests Bilateral pleural effusions Chest x-ray - 11/04 - Impression: Improved interstitial edema with slight degree of residual, over 3 days Probable small left pleural effusion Hida - negative Microbiology Date/Time Source Procedure Growth Status 11/02/17 19:00 Indwelling Cath Urine Culture - Final NO GROWTH AFTER 48 HOURS Complete Laboratory Tests Test 11/05/17 06:25 White Blood Count 7.8 K/UL (4.8-10.8) Red Blood Count 3.37 M/UL (4.70-6.10) L Hemoglobin 9.1 G/DL (14.2-18.0) L Hematocrit 26.8 % (42.0-52.0) L Mean Corpuscular Volume 80 FL (80-99) Mean Corpuscular Hemoglobin 26.9 PG (27.0-31.0) L Mean Corpuscular Hemoglobin Concent 33.8 G/DL (32.0-36.0) Red Cell Distribution Width 14.0 % (11.6-14.8) Platelet Count 190 K/UL (150-450) Mean Platelet Volume 10.7 FL (6.5-10.1) H Neutrophils (%) (Auto) 74.3 % (45.0-75.0) Lymphocytes (%) (Auto) 11.0 % (20.0-45.0) L Monocytes (%) (Auto) 9.6 % (1.0-10.0) Eosinophils (%) (Auto) 3.1 % (0.0-3.0) H Basophils (%) (Auto) 2.0 % (0.0-2.0) Sodium Level 137 MMOL/L (136-145) Potassium Level 4.5 MMOL/L (3.5-5.1) Chloride Level 103 MMOL/L (98-107) Carbon Dioxide Level 24 MMOL/L (21-32) Anion Gap 10 mmol/L (5-15) Blood Urea Nitrogen 65 mg/dL (7-18) H Creatinine 4.5 MG/DL (0.55-1.30) H Estimat Glomerular Filtration Rate mL/min (>60) Glucose Level 50 MG/DL (74-106) L Calcium Level 7.6 MG/DL (8.5-10.1) L Current Medications Medications (Trade) Dose Ordered Sig/Marie Route PRN Reason Start Time Stop Time Status Last Admin Dose Admin Acetaminophen/ Codeine Phosphate (Tylenol #3) 2 tab Q6H PRN ORAL Moderate Pain (Scale 4-6) 11/03/17 16:00 11/08/17 21:59 Albuterol Sulfate (Proventil MDI) 1 puff Q6HRT INH 11/03/17 19:00 12/03/17 18:59 11/05/17 00:18 Aspirin (Ecotrin) 81 mg DAILY ORAL 11/04/17 09:00 12/02/17 08:59 11/05/17 10:01 Atorvastatin Calcium (Lipitor) 80 mg QHS ORAL 11/03/17 21:00 12/02/17 20:59 11/04/17 21:08 Clopidogrel Bisulfate (Plavix) 75 mg DAILY ORAL 11/04/17 09:00 12/02/17 08:59 11/05/17 10:01 Dextrose (Dextrose 50%) STAT PRN IV Hypoglycemia 11/03/17 13:30 12/01/17 13:29 Gabapentin (Neurontin) 100 mg BID ORAL 11/03/17 18:00 12/02/17 08:59 11/05/17 10:01 Hydromorphone HCl (Dilaudid) 0.5 mg Q4H PRN IVP Severe Pain (Scale 7-10) 11/03/17 12:15 11/10/17 00:14 Insulin Aspart (NovoLOG) BEFORE MEALS AND HS SUBQ 11/03/17 16:30 12/02/17 06:29 11/04/17 21:13 Insulin Detemir (Levemir) 15 units BEDTIME SUBQ 11/03/17 21:00 12/01/17 20:59 11/04/17 21:12 Ondansetron HCl (Zofran) 4 mg Q6H PRN IVP Nausea & Vomiting 11/03/17 14:00 12/02/17 01:59 11/04/17 17:05 Piperacillin Sod/ Tazobactam Sod 3.375 gm/Sodium Chloride 110 ml @ 27.5 mls/hr Q12HR IVPB 11/03/17 21:00 11/09/17 20:59 11/05/17 10:00 Ranolazine (Ranexa ER 500mg) 500 mg EVERY 12 HOURS ORAL 11/03/17 21:00 12/02/17 08:59 11/05/17 10:01 Tamsulosin HCl (Flomax) 0.4 mg BEDTIME ORAL 11/03/17 21:00 12/03/17 20:59 11/04/17 21:08 CYRUS ELISE Nov 05, 2017 10:57
--- NOTE | 2017-11-05 12:56 | Consultation ---
History of Present Illness General Date patient seen: Nov 04, 2017 Chief Complaint: Altered Level of Consciousness Reason for Consultation: acute cholecystitis Present Illness HPI This is a 77-year-old male who presented to the ED with confusion and lethargy. Several days ago, the patient was seen by his PCP and started on antibiotics and Flomax for a possible prostate infection. The patient was noted to be confused and lethargic. Paramedics were called and he was brought to the hospital. In the ER here at [facility], he was given Narcan with improvement in his mental status. Patient noted to be hyponatremic and renal consulted. Allergies: Coded Allergies: No Known Allergies (Unverified , 11/01/17) Medication History Scheduled Albuterol Sulfate* (Proair Hfa*), 1 PUFF INH Q6H, (Reported) Aspirin Ec* (Aspirin Ec*), 81 MG ORAL DAILY, (Reported) Atorvastatin (Lipitor), 80 MG ORAL DAILY, (Reported) Clopidogrel* (Clopidogrel*), 75 MG ORAL DAILY, (Reported) Gabapentin* (Gabapentin*), 100 MG ORAL BID, (Reported) Insulin Glargine (Lantus), 15 SUBQ BEDTIME, (Reported) Ranolazine* (Ranexa*), 500 MG ORAL EVERY 12 HOURS, (Reported) Scheduled PRN Acetaminophen With Codeine (T#3) (Tylenol #3 Tab*), 2 TAB ORAL Q6H PRN for For Pain, (Reported) Discontinued Medications Amlodipine Besylate* (Amlodipine Besylate*), 5 MG ORAL DAILY, (Reported) Discontinued Reason: MD discontinued med Amlodipine Besylate* (Amlodipine Besylate*), 5 MG ORAL DAILY, (Reported) Discontinued Reason: MD discontinued med Ciprofloxacin Hcl* (Ciprofloxacin Hcl*), 500 MG ORAL EVERY 12 HOURS, (Reported) Discontinued Reason: MD discontinued med Hydrochlorothiazide* (Hydrochlorothiazide*), 12.5 MG ORAL DAILY, (Reported) Discontinued Reason: MD discontinued med Lisinopril* (Lisinopril*), 40 MG ORAL DAILY, (Reported) Discontinued Reason: MD discontinued med Metformin Hcl* (Metformin Hcl*), 1,000 MG ORAL DAILY, (Reported) Discontinued Reason: MD discontinued med Metoprolol Tartrate* (Metoprolol Tartrate*), 50 MG ORAL EVERY 12 HOURS, ( Reported) Discontinued Reason: MD discontinued med Nifedipine (Nifedipine*), 60 MG ORAL BID, (Reported) Discontinued Reason: MD discontinued med Omeprazole (Omeprazole), 40 MG ORAL DAILY, (Reported) Discontinued Reason: MD discontinued med Pantoprazole* (Pantoprazole*), 40 MG ORAL DAILY, (Reported) Discontinued Reason: MD discontinued med Tamsulosin Hcl (Tamsulosin Hcl*), 0.4 MG ORAL DAILY, (Reported) Discontinued Reason: MD discontinued med Patient History History Provided By: Medical Record Healthcare decision maker Nelsy Resuscitation status Full Code Advanced Directive on File No Past Medical/Surgical History Past Medical/Surgical History: (1) Diabetes mellitus out of control Review of Systems All Other Systems: negative except mentioned in HPI Physical Exam General Appearance: WD/WN, no apparent distress HEENT: normocephalic, atraumatic Neck: supple Respiratory/Chest: lungs clear Cardiovascular/Chest: tachycardia Abdomen: soft, tender Extremities: no edema Last 24 Hour Vital Signs Date Time Temp Pulse Resp B/P (MAP) Pulse Ox O2 Delivery O2 Flow Rate FiO2 11/05/17 12:41 80 18 98 Nasal Cannula 3.0 32 11/05/17 12:37 80 18 98 Nasal Cannula 3.0 32 11/05/17 12:00 97.2 79 20 131/67 100 Non-Rebreather 15.0 99 11/05/17 11:33 Venturi Mask 14.0 55 11/05/17 11:32 Non-Rebreather 14.0 55 11/05/17 11:25 Non-Rebreather 15.0 100 11/05/17 11:24 100 Non-Rebreather 15.0 100 11/05/17 10:05 97.7 72 18 146/66 100 Non-Rebreather 15.0 97 11/05/17 08:00 70 11/05/17 08:00 97.8 72 18 132/70 99 Non-Rebreather 15.0 100 11/05/17 04:00 75 11/05/17 04:00 97.7 72 18 124/60 100 Non-Rebreather 15.0 100 11/05/17 00:20 66 18 96 Non-Rebreather 15.0 100 11/05/17 00:19 66 18 95 Non-Rebreather 15.0 100 11/05/17 00:00 78 11/05/17 00:00 98.1 73 20 132/59 100 Non-Rebreather 15.0 100 11/04/17 21:03 Non-Rebreather 15.0 100 11/04/17 21:03 95 Non-Rebreather 15.0 100 11/04/17 20:30 68 20 96 Non-Rebreather 15.0 100 11/04/17 20:30 68 20 96 Non-Rebreather 15.0 100 11/04/17 20:00 77 11/04/17 20:00 98.1 81 20 140/62 99 Non-Rebreather 15.0 100 11/04/17 16:00 78 11/04/17 16:00 97.7 82 20 130/60 97 Non-Rebreather 15.0 100 11/04/17 13:12 78 24 93 Non-Rebreather 15.0 100 11/04/17 13:11 78 24 93 Non-Rebreather 15.0 100 Intake and Output 11/04/17 11/05/17 19:00 07:00 Intake Total 360 ml Output Total 600 ml 1500 ml Balance -240 ml -1500 ml Intake Oral 360 ml Output Urine Total 600 ml 1500 ml Laboratory Tests Test 11/05/17 06:25 White Blood Count 7.8 K/UL (4.8-10.8) Red Blood Count 3.37 M/UL (4.70-6.10) L Hemoglobin 9.1 G/DL (14.2-18.0) L Hematocrit 26.8 % (42.0-52.0) L Mean Corpuscular Volume 80 FL (80-99) Mean Corpuscular Hemoglobin 26.9 PG (27.0-31.0) L Mean Corpuscular Hemoglobin Concent 33.8 G/DL (32.0-36.0) Red Cell Distribution Width 14.0 % (11.6-14.8) Platelet Count 190 K/UL (150-450) Mean Platelet Volume 10.7 FL (6.5-10.1) H Neutrophils (%) (Auto) 74.3 % (45.0-75.0) Lymphocytes (%) (Auto) 11.0 % (20.0-45.0) L Monocytes (%) (Auto) 9.6 % (1.0-10.0) Eosinophils (%) (Auto) 3.1 % (0.0-3.0) H Basophils (%) (Auto) 2.0 % (0.0-2.0) Sodium Level 137 MMOL/L (136-145) Potassium Level 4.5 MMOL/L (3.5-5.1) Chloride Level 103 MMOL/L (98-107) Carbon Dioxide Level 24 MMOL/L (21-32) Anion Gap 10 mmol/L (5-15) Blood Urea Nitrogen 65 mg/dL (7-18) H Creatinine 4.5 MG/DL (0.55-1.30) H Estimat Glomerular Filtration Rate mL/min (>60) Glucose Level 50 MG/DL (74-106) L Calcium Level 7.6 MG/DL (8.5-10.1) L Height (Feet): 5 Height (Inches): 4.00 Weight (Pounds): 184 Medications Current Medications Medications (Trade) Dose Ordered Sig/Marie Route PRN Reason Start Time Stop Time Status Last Admin Dose Admin Acetaminophen/ Codeine Phosphate (Tylenol #3) 2 tab Q6H PRN ORAL Moderate Pain (Scale 4-6) 11/03/17 16:00 11/08/17 21:59 Albuterol Sulfate (Proventil MDI) 1 puff Q6HRT INH 11/03/17 19:00 12/03/17 18:59 11/05/17 12:37 Aspirin (Ecotrin) 81 mg DAILY ORAL 11/04/17 09:00 12/02/17 08:59 11/05/17 10:01 Atorvastatin Calcium (Lipitor) 80 mg QHS ORAL 11/03/17 21:00 12/02/17 20:59 11/04/17 21:08 Clopidogrel Bisulfate (Plavix) 75 mg DAILY ORAL 11/04/17 09:00 12/02/17 08:59 11/05/17 10:01 Dextrose (Dextrose 50%) STAT PRN IV Hypoglycemia 11/03/17 13:30 12/01/17 13:29 Gabapentin (Neurontin) 100 mg BID ORAL 11/03/17 18:00 12/02/17 08:59 11/05/17 10:01 Hydromorphone HCl (Dilaudid) 0.5 mg Q4H PRN IVP Severe Pain (Scale 7-10) 11/03/17 12:15 2/12/18 00:14 Insulin Aspart (NovoLOG) BEFORE MEALS AND HS SUBQ 11/03/17 16:30 12/02/17 06:29 11/04/17 21:13 Insulin Detemir (Levemir) 15 units BEDTIME SUBQ 11/03/17 21:00 12/01/17 20:59 11/04/17 21:12 Ondansetron HCl (Zofran) 4 mg Q6H PRN IVP Nausea & Vomiting 11/03/17 14:00 12/02/17 01:59 11/04/17 17:05 Piperacillin Sod/ Tazobactam Sod 3.375 gm/Sodium Chloride 110 ml @ 27.5 mls/hr Q12HR IVPB 11/03/17 21:00 11/09/17 20:59 11/05/17 10:00 Ranolazine (Ranexa ER 500mg) 500 mg EVERY 12 HOURS ORAL 11/03/17 21:00 12/02/17 08:59 11/05/17 10:01 Tamsulosin HCl (Flomax) 0.4 mg BEDTIME ORAL 11/03/17 21:00 12/03/17 20:59 11/04/17 21:08 Assessment/Plan Problem List: (1) Dehydration ICD Codes: E86.0 - Dehydration SNOMED: 52796675 (2) Acute cholecystitis ICD Codes: K81.0 - Acute cholecystitis SNOMED: 98141299 (3) Septic shock ICD Codes: A41.9 - Sepsis, unspecified organism; R65.21 - Severe sepsis with septic shock SNOMED: 09742009 (4) Hypotension ICD Codes: I95.9 - Hypotension, unspecified SNOMED: 10037965 (5) Renal failure ICD Codes: N19 - Unspecified kidney failure SNOMED: 47542637 (6) CHF (congestive heart failure) ICD Codes: I50.9 - Heart failure, unspecified SNOMED: 85698940 (7) Hypocalcemia ICD Codes: E83.51 - Hypocalcemia SNOMED: 0640968 (8) Nausea & vomiting ICD Codes: R11.2 - Nausea with vomiting, unspecified SNOMED: 88298247 (9) Pain, abdominal, generalized ICD Codes: R10.84 - Generalized abdominal pain SNOMED: 736139895 (10) Diabetes mellitus out of control ICD Codes: E11.65 - Type 2 diabetes mellitus with hyperglycemia SNOMED: 65809237, 906647178 (11) Hyponatremia ICD Codes: E87.1 - Hypo-osmolality and hyponatremia SNOMED: 19487637 QUINTON MEANS Nov 05, 2017 12:56
--- NOTE | 2017-11-05 17:46 | General Surgery Progress Note ---
General Surgery-Progress Note Subjective Symptoms: improved Additional Comments no pain. comfortable. HIDA negative. renal function improving. Objective Last 24 Hour Vital Signs Date Time Temp Pulse Resp B/P (MAP) Pulse Ox O2 Delivery O2 Flow Rate FiO2 11/05/17 16:00 98.1 80 20 144/64 97 Nasal Cannula 3.0 11/05/17 12:41 80 18 98 Nasal Cannula 3.0 32 11/05/17 12:37 80 18 98 Nasal Cannula 3.0 32 11/05/17 12:00 97.2 79 20 131/67 99 Non-Rebreather 15.0 100 11/05/17 11:33 Venturi Mask 14.0 55 11/05/17 11:32 Non-Rebreather 14.0 55 11/05/17 11:25 Non-Rebreather 15.0 100 11/05/17 11:24 100 Non-Rebreather 15.0 100 11/05/17 10:05 97.7 72 18 146/66 97 Non-Rebreather 15.0 100 11/05/17 08:00 70 11/05/17 08:00 97.8 72 18 132/70 99 Non-Rebreather 15.0 100 11/05/17 04:00 75 11/05/17 04:00 97.7 72 18 124/60 100 Non-Rebreather 15.0 100 11/05/17 00:20 66 18 96 Non-Rebreather 15.0 100 11/05/17 00:19 66 18 95 Non-Rebreather 15.0 100 11/05/17 00:00 78 11/05/17 00:00 98.1 73 20 132/59 100 Non-Rebreather 15.0 100 11/04/17 21:03 Non-Rebreather 15.0 100 11/04/17 21:03 95 Non-Rebreather 15.0 100 11/04/17 20:30 68 20 96 Non-Rebreather 15.0 100 11/04/17 20:30 68 20 96 Non-Rebreather 15.0 100 11/04/17 20:00 77 11/04/17 20:00 98.1 81 20 140/62 99 Non-Rebreather 15.0 100 I&O Intake and Output 11/04/17 11/05/17 19:00 07:00 Intake Total 360 ml Output Total 600 ml 1500 ml Balance -240 ml -1500 ml Intake Oral 360 ml Output Urine Total 600 ml 1500 ml Cardiovascular: RSR Respiratory: clear Abdomen: soft, non-tender, present bowel sounds Extremities: no cyanosis Laboratory Tests Test 11/05/17 06:25 White Blood Count 7.8 K/UL (4.8-10.8) Red Blood Count 3.37 M/UL (4.70-6.10) L Hemoglobin 9.1 G/DL (14.2-18.0) L Hematocrit 26.8 % (42.0-52.0) L Mean Corpuscular Volume 80 FL (80-99) Mean Corpuscular Hemoglobin 26.9 PG (27.0-31.0) L Mean Corpuscular Hemoglobin Concent 33.8 G/DL (32.0-36.0) Red Cell Distribution Width 14.0 % (11.6-14.8) Platelet Count 190 K/UL (150-450) Mean Platelet Volume 10.7 FL (6.5-10.1) H Neutrophils (%) (Auto) 74.3 % (45.0-75.0) Lymphocytes (%) (Auto) 11.0 % (20.0-45.0) L Monocytes (%) (Auto) 9.6 % (1.0-10.0) Eosinophils (%) (Auto) 3.1 % (0.0-3.0) H Basophils (%) (Auto) 2.0 % (0.0-2.0) Sodium Level 137 MMOL/L (136-145) Potassium Level 4.5 MMOL/L (3.5-5.1) Chloride Level 103 MMOL/L (98-107) Carbon Dioxide Level 24 MMOL/L (21-32) Anion Gap 10 mmol/L (5-15) Blood Urea Nitrogen 65 mg/dL (7-18) H Creatinine 4.5 MG/DL (0.55-1.30) H Estimat Glomerular Filtration Rate mL/min (>60) Glucose Level 50 MG/DL (74-106) L Calcium Level 7.6 MG/DL (8.5-10.1) L Plan Problems: (1) Septic shock Assessment & Plan: 77 year old male presented in septic shock. initially in ICU on pressors but with resuscitation has since weaned off pressors and downgraded. on broad spectrum IV Abx. possible etiology UTI vs cholecystitis vs other. Leukocytosis resolved. afebrile, HD stable, exam benign. Labs reviewed and renal function improving. LFT's normal. no abdominal pain or RUQ pain. CT demonstrated possible acalculous cholecystitis with edema and pericholecystic stranding. Ultrasound completed and similar findings not confirmed. US demonstrates borderline thickening of GB wall, no stones, no distention, normal biliary tract. HIDA negative. Unlikely etiology to be acute acalculous cholecystitis given findings, exam, and labs. No acute surgical intervention necessary. okay for diet ambulate and oob thank you for this consultation Red Lima Nov 05, 2017 17:46
--- NOTE | 2017-11-05 19:14 | General Progress Note ---
Assessment/Plan Problem List: (1) Diabetes mellitus out of control ICD Codes: E11.65 - Type 2 diabetes mellitus with hyperglycemia SNOMED: 06655078, 609147338 (2) Septic shock ICD Codes: A41.9 - Sepsis, unspecified organism; R65.21 - Severe sepsis with septic shock SNOMED: 19487047 (3) Hypotension ICD Codes: I95.9 - Hypotension, unspecified SNOMED: 36864107 Assessment/Plan reduce Levemir 15 to 8 units qhs continue NISS Subjective Allergies: Coded Allergies: No Known Allergies (Unverified , 11/01/17) All Systems: reviewed and negative except above Subjective events noted - interval notes reviewed feeling better - family at bedside hypoglycemia this morning after receiving Levemir 15 units last night Objective Last 24 Hour Vital Signs Date Time Temp Pulse Resp B/P (MAP) Pulse Ox O2 Delivery O2 Flow Rate FiO2 11/05/17 16:00 98.1 80 20 144/64 97 Nasal Cannula 3.0 11/05/17 16:00 83 11/05/17 12:41 80 18 98 Nasal Cannula 3.0 32 11/05/17 12:37 80 18 98 Nasal Cannula 3.0 32 11/05/17 12:00 71 11/05/17 12:00 97.2 79 20 131/67 99 Non-Rebreather 15.0 100 11/05/17 11:33 Venturi Mask 14.0 55 11/05/17 11:32 Non-Rebreather 14.0 55 11/05/17 11:25 Non-Rebreather 15.0 100 11/05/17 11:24 100 Non-Rebreather 15.0 100 11/05/17 10:05 97.7 72 18 146/66 97 Non-Rebreather 15.0 100 11/05/17 08:00 70 11/05/17 08:00 97.8 72 18 132/70 99 Non-Rebreather 15.0 100 11/05/17 04:00 75 11/05/17 04:00 97.7 72 18 124/60 100 Non-Rebreather 15.0 100 11/05/17 00:20 66 18 96 Non-Rebreather 15.0 100 11/05/17 00:19 66 18 95 Non-Rebreather 15.0 100 11/05/17 00:00 78 11/05/17 00:00 98.1 73 20 132/59 100 Non-Rebreather 15.0 100 11/04/17 21:03 Non-Rebreather 15.0 100 11/04/17 21:03 95 Non-Rebreather 15.0 100 11/04/17 20:30 68 20 96 Non-Rebreather 15.0 100 11/04/17 20:30 68 20 96 Non-Rebreather 15.0 100 11/04/17 20:00 77 11/04/17 20:00 98.1 81 20 140/62 99 Non-Rebreather 15.0 100 Intake and Output 11/04/17 11/05/17 19:00 07:00 Intake Total 360 ml Output Total 600 ml 1500 ml Balance -240 ml -1500 ml Intake Oral 360 ml Output Urine Total 600 ml 1500 ml Laboratory Tests 11/05/17 06:25: White Blood Count 7.8, Red Blood Count 3.37L, Hemoglobin 9.1L, Hematocrit 26.8L , Mean Corpuscular Volume 80, Mean Corpuscular Hemoglobin 26.9L, Mean Corpuscular Hemoglobin Concent 33.8, Red Cell Distribution Width 14.0, Platelet Count 190, Mean Platelet Volume 10.7H, Neutrophils (%) (Auto) 74.3, Lymphocytes (%) (Auto) 11.0L, Monocytes (%) (Auto) 9.6, Eosinophils (%) (Auto) 3.1H, Basophils (%) (Auto) 2.0, Sodium Level 137, Potassium Level 4.5, Chloride Level 103, Carbon Dioxide Level 24, Anion Gap 10, Blood Urea Nitrogen 65H, Creatinine 4.5H, Estimat Glomerular Filtration Rate , Glucose Level 50L, Calcium Level 7.6L Height (Feet): 5 Height (Inches): 4.00 Weight (Pounds): 184 General Appearance: no apparent distress Neck: normal alignment Cardiovascular: normal rate Respiratory/Chest: lungs clear Abdomen: non tender Edema: no edema noted Arm (L), no edema noted Arm (R), no edema noted Leg (L), no edema noted Leg (R), no edema noted Pedal (L), no edema noted Pedal (R), no edema noted Generalized Objective Current Medications Medications (Trade) Dose Ordered Sig/Marie Route PRN Reason Start Time Stop Time Status Last Admin Dose Admin Acetaminophen/ Codeine Phosphate (Tylenol #3) 2 tab Q6H PRN ORAL Moderate Pain (Scale 4-6) 11/03/17 16:00 11/08/17 21:59 Albuterol Sulfate (Proventil MDI) 1 puff Q6HRT INH 11/03/17 19:00 12/03/17 18:59 11/05/17 12:37 Aspirin (Ecotrin) 81 mg DAILY ORAL 11/04/17 09:00 12/02/17 08:59 11/05/17 10:01 Atorvastatin Calcium (Lipitor) 80 mg QHS ORAL 11/03/17 21:00 12/02/17 20:59 11/04/17 21:08 Clopidogrel Bisulfate (Plavix) 75 mg DAILY ORAL 11/04/17 09:00 12/02/17 08:59 11/05/17 10:01 Dextrose (Dextrose 50%) STAT PRN IV Hypoglycemia 11/03/17 13:30 12/01/17 13:29 Gabapentin (Neurontin) 100 mg BID ORAL 11/03/17 18:00 12/02/17 08:59 11/05/17 17:23 Hydromorphone HCl (Dilaudid) 0.5 mg Q4H PRN IVP Severe Pain (Scale 7-10) 11/03/17 12:15 11/10/17 00:14 Insulin Aspart (NovoLOG) BEFORE MEALS AND HS SUBQ 11/03/17 16:30 12/02/17 06:29 11/05/17 16:16 Insulin Detemir (Levemir) 15 units BEDTIME SUBQ 11/03/17 21:00 12/01/17 20:59 11/04/17 21:12 Ondansetron HCl (Zofran) 4 mg Q6H PRN IVP Nausea & Vomiting 11/03/17 14:00 12/02/17 01:59 11/04/17 17:05 Piperacillin Sod/ Tazobactam Sod 3.375 gm/Sodium Chloride 110 ml @ 27.5 mls/hr Q12HR IVPB 11/03/17 21:00 11/09/17 20:59 11/05/17 10:00 Ranolazine (Ranexa ER 500mg) 500 mg EVERY 12 HOURS ORAL 2/5/18 21:00 12/02/17 08:59 11/05/17 10:01 Tamsulosin HCl (Flomax) 0.4 mg BEDTIME ORAL 11/03/17 21:00 12/03/17 20:59 11/04/17 21:08 Item Value Date Time Bedside Blood Glucose 157 mg/dl H 11/05/17 1630 Bedside Blood Glucose 69 mg/dl L 11/05/17 1130 Bedside Blood Glucose 71 mg/dl 11/05/17 0718 Bedside Blood Glucose 168 mg/dl H 11/04/17 2113 Glucose Level 50 MG/DL L 11/05/17 0625 CHARLEEN GEIGER Nov 05, 2017 19:14
[2017-11-05] MEDS: Levemir Flexpen SUBQ SCH (21:00)
[2017-11-05] MEDS: Tamsulosin 0.4mg cap ORAL SCH (22:18)
[2017-11-05] MEDS: Atorvastatin 80mg tab ORAL SCH (22:19)
[2017-11-06] VITALS: BP 161/75
[2017-11-06] MEDS: Albuterol 90mcg Inhaler 8gm INH SCH ×4 (01:23→19:32)
[2017-11-06 04:00] VITALS: BP 150/71
[2017-11-06] MEDS: NovoLOG Insulin Flexpen SUBQ SCH ×5 (07:00→22:35)
[2017-11-06 07:51] LABS: BASOPHILS % (AUTO) 1.2 % (0.0-2.0); HEMATOCRIT 30.6 % (42.0-52.0); HEMOGLOBIN 10.4 G/DL (14.2-18.0); LYMPHOCYTES % (AUTO) 10.9 % (20.0-45.0); MEAN CORPUSCULAR VOLUME 81 FL (80-99); MONOCYTES % (AUTO) 10.8 % (1.0-10.0); NEUTROPHILS % (AUTO) 73.2 % (45.0-75.0); PLATELET COUNT 216 K/UL (150-450); RED BLOOD COUNT 3.78 M/UL (4.70-6.10); RED CELL DISTRIBUTION WIDTH 14.1 % (11.6-14.8); WHITE BLOOD COUNT 7.6 K/UL (4.8-10.8)
[2017-11-06 07:58] LABS: ANION GAP 10 mmol/L (5-15); BLOOD UREA NITROGEN 51 mg/dL (7-18); CALCIUM 7.8 MG/DL (8.5-10.1); CARBON DIOXIDE 23 MMOL/L (21-32); CHLORIDE 107 MMOL/L (98-107); CREATININE 3.4 MG/DL (0.55-1.30); POTASSIUM 4.9 MMOL/L (3.5-5.1); SODIUM 140 MMOL/L (136-145)
[2017-11-06 08:00] VITALS: BP 150/63
[2017-11-06] MEDS: Aspirin EC 81mg tab ORAL SCH (08:48)
[2017-11-06] MEDS: Ranolazine 500mg tab ORAL SCH ×2 (08:48→21:21)
[2017-11-06] MEDS: Piperacillin/Tazobactam 3.375 GM in NS 110 ML IVPB SCH ×2 (09:15→21:22)
--- NOTE | 2017-11-06 10:06 | Pulmonology Progress Note ---
Assessment/Plan Assessment/Plan 1. Renal failure. Renal consult noted. 2. Septic shock. Resolved 3. Altered mental status. Improved; but still confused 4. Urinary tract infection. 5. Hyponatremia. 6. Malnutrition, moderate. 7. Possible cholecystitis 8. Diabetes mellitus. 10. Pulm edema DISCUSSION: Continue medications Tellez Renal followup Subjective Interval Events: None; overall improved Constitutional: Reports: no symptoms HEENT: Repors: no symptoms Respiratory: Reports: no symptoms Cardiovascular: Reports: no symptoms Gastrointestinal/Abdominal: Reports: no symptoms Genitourinary: Reports: no symptoms Allergies: Coded Allergies: No Known Allergies (Unverified , 11/01/17) Objective Last 24 Hour Vital Signs Date Time Temp Pulse Resp B/P (MAP) Pulse Ox O2 Delivery O2 Flow Rate FiO2 11/06/17 08:00 98.2 73 20 150/63 98 Nasal Cannula 3.0 11/06/17 07:03 100 Nasal Cannula 3.0 32 11/06/17 07:03 Nasal Cannula 3.0 32 11/06/17 07:01 77 18 100 Nasal Cannula 3.0 32 11/06/17 07:01 78 18 99 Nasal Cannula 2.0 28 11/06/17 04:00 71 11/06/17 04:00 98.1 77 20 150/71 98 Nasal Cannula 3.0 11/06/17 01:24 87 20 97 Nasal Cannula 3.0 32 11/06/17 01:22 87 20 97 Nasal Cannula 3.0 32 11/06/17 00:00 80 11/06/17 00:00 98.1 80 20 161/75 98 Nasal Cannula 3.0 11/05/17 20:00 76 11/05/17 20:00 98.2 77 20 151/74 96 Nasal Cannula 3.0 11/05/17 19:40 87 20 97 Nasal Cannula 3.0 32 11/05/17 19:38 87 20 97 Nasal Cannula 3.0 32 11/05/17 19:38 Nasal Cannula 3.0 32 11/05/17 19:38 97 Nasal Cannula 3.0 32 11/05/17 16:00 98.1 80 20 144/64 97 Nasal Cannula 3.0 11/05/17 16:00 83 11/05/17 12:41 80 18 98 Nasal Cannula 3.0 32 11/05/17 12:37 80 18 98 Nasal Cannula 3.0 32 11/05/17 12:00 71 11/05/17 12:00 97.2 79 20 131/67 99 Non-Rebreather 15.0 100 11/05/17 11:33 Venturi Mask 14.0 55 11/05/17 11:32 Non-Rebreather 14.0 55 11/05/17 11:25 Non-Rebreather 15.0 100 11/05/17 11:24 100 Non-Rebreather 15.0 100 11/05/17 10:05 97.7 72 18 146/66 97 Non-Rebreather 15.0 100 Intake and Output 11/05/17 11/06/17 19:00 07:00 Intake Total 720 ml Output Total 1400 ml 1000 ml Balance -680 ml -1000 ml Intake Oral 720 ml Output Urine Total 1400 ml 1000 ml # Bowel Movements 2 1 General Appearance: no acute distress HEENT: normocephalic Respiratory/Chest: chest wall non-tender, decreased breath sounds Cardiovascular: normal peripheral pulses, normal rate Abdomen: normal bowel sounds, soft, non tender Extremities: no cyanosis Laboratory Tests 11/06/17 06:24: White Blood Count 7.6, Red Blood Count 3.78L, Hemoglobin 10.4L, Hematocrit 30.6L , Mean Corpuscular Volume 81, Mean Corpuscular Hemoglobin 27.5, Mean Corpuscular Hemoglobin Concent 34.0, Red Cell Distribution Width 14.1, Platelet Count 216, Mean Platelet Volume 9.5, Neutrophils (%) (Auto) 73.2, Lymphocytes (% ) (Auto) 10.9L, Monocytes (%) (Auto) 10.8H, Eosinophils (%) (Auto) 4.0H, Basophils (%) (Auto) 1.2, Sodium Level 140, Potassium Level 4.9, Chloride Level 107, Carbon Dioxide Level 23, Anion Gap 10, Blood Urea Nitrogen 51H, Creatinine 3.4H, Estimat Glomerular Filtration Rate , Glucose Level 120H, Calcium Level 7.8L Current Medications Medications (Trade) Dose Ordered Sig/Marie Route PRN Reason Start Time Stop Time Status Last Admin Dose Admin Acetaminophen/ Codeine Phosphate (Tylenol #3) 2 tab Q6H PRN ORAL Moderate Pain (Scale 4-6) 11/03/17 16:00 11/08/17 21:59 Albuterol Sulfate (Proventil MDI) 1 puff Q6HRT INH 11/03/17 19:00 12/03/17 18:59 11/06/17 07:00 Aspirin (Ecotrin) 81 mg DAILY ORAL 11/04/17 09:00 12/02/17 08:59 11/06/17 08:48 Atorvastatin Calcium (Lipitor) 80 mg QHS ORAL 11/03/17 21:00 12/02/17 20:59 11/05/17 22:19 Clopidogrel Bisulfate (Plavix) 75 mg DAILY ORAL 11/04/17 09:00 12/02/17 08:59 11/06/17 08:48 Dextrose (Dextrose 50%) STAT PRN IV Hypoglycemia 11/03/17 13:30 12/01/17 13:29 Gabapentin (Neurontin) 100 mg BID ORAL 11/03/17 18:00 12/02/17 08:59 11/06/17 08:48 Hydromorphone HCl (Dilaudid) 0.5 mg Q4H PRN IVP Severe Pain (Scale 7-10) 11/03/17 12:15 11/10/17 00:14 Insulin Aspart (NovoLOG) BEFORE MEALS AND HS SUBQ 11/03/17 16:30 12/02/17 06:29 11/06/17 07:00 Insulin Detemir (Levemir) 8 units BEDTIME SUBQ 11/05/17 21:00 12/05/17 20:59 Ondansetron HCl (Zofran) 4 mg Q6H PRN IVP Nausea & Vomiting 11/03/17 14:00 12/02/17 01:59 11/04/17 17:05 Piperacillin Sod/ Tazobactam Sod 3.375 gm/Sodium Chloride 110 ml @ 27.5 mls/hr Q12HR IVPB 11/03/17 21:00 11/09/17 20:59 11/06/17 09:15 Ranolazine (Ranexa ER 500mg) 500 mg EVERY 12 HOURS ORAL 11/03/17 21:00 12/02/17 08:59 11/06/17 08:48 Tamsulosin HCl (Flomax) 0.4 mg BEDTIME ORAL 11/03/17 21:00 12/03/17 20:59 11/05/17 22:18 Robles Jones MD Nov 06, 2017 10:06
[2017-11-06 12:00] VITALS: BP 148/80
--- NOTE | 2017-11-06 15:16 | Infectious Diseases Prog Note ---
Assessment/Plan Assessment/Plan ASSESSMENT AND PLAN: 1. sepsis, shock, ? uti, ? cholecystitis on ct scan, leukocytosis, sob, edema, arf - clinically better, leukocytosis resolved - zosyn for now - day # 5/10 abx, consider oral abx soon - urine culture negative but patient on abx prior to urine culture - bp better, no pressors - hida - negative, cholecystitis less likely 2. Acute renal failure, anemia, Ch, chf/pulmonary edema - ? renal evaluation , cardiology consult noted 3. Diabetes. 4. GIB 5. Possible hyperlipidemia. He is on Lipitor. 6. Hyponatremia. 7. No known allergies. 8. Social history negative. 9. Family history noncontributory. 10. MAR was noted. 11. Case was discussed with RN. 12. Continue treatment per primary consultants. 13. Case was discussed with the patient's family. 14. patient now in telemetry Subjective Constitutional: Denies: fever HEENT: Denies: congestion Respiratory: Denies: shortness of breath Cardiovascular: Denies: chest pain Gastrointestinal/Abdominal: Denies: nausea, vomiting, diarrhea Genitourinary: Denies: dysuria, hematuria Neurologic: Denies: headache Psychiatric: Denies: depression Skin: Denies: rash Hematologic: Denies: bleeding Musculoskeletal: Denies: pain Allergies: Coded Allergies: No Known Allergies (Unverified , 11/01/17) Objective Vital Signs Last 24 Hour Vital Signs Date Time Temp Pulse Resp B/P (MAP) Pulse Ox O2 Delivery O2 Flow Rate FiO2 11/06/17 13:02 72 18 97 Room Air 21 11/06/17 13:02 73 18 99 Room Air 21 11/06/17 12:00 75 11/06/17 12:00 97.3 69 20 148/80 96 Room Air 11/06/17 08:00 87 11/06/17 08:00 98.2 73 20 150/63 98 Nasal Cannula 3.0 11/06/17 07:03 100 Nasal Cannula 3.0 32 11/06/17 07:03 Nasal Cannula 3.0 32 11/06/17 07:01 77 18 100 Nasal Cannula 3.0 32 11/06/17 07:01 78 18 99 Nasal Cannula 2.0 28 11/06/17 04:00 71 11/06/17 04:00 98.1 77 20 150/71 98 Nasal Cannula 3.0 11/06/17 01:24 87 20 97 Nasal Cannula 3.0 32 11/06/17 01:22 87 20 97 Nasal Cannula 3.0 32 11/06/17 00:00 80 11/06/17 00:00 98.1 80 20 161/75 98 Nasal Cannula 3.0 11/05/17 20:00 76 11/05/17 20:00 98.2 77 20 151/74 96 Nasal Cannula 3.0 11/05/17 19:40 87 20 97 Nasal Cannula 3.0 32 11/05/17 19:38 87 20 97 Nasal Cannula 3.0 32 11/05/17 19:38 Nasal Cannula 3.0 32 11/05/17 19:38 97 Nasal Cannula 3.0 32 11/05/17 16:00 98.1 80 20 144/64 97 Nasal Cannula 3.0 11/05/17 16:00 83 Height (Feet): 5 Height (Inches): 4.00 Weight (Pounds): 180 General Appearance: no acute distress HEENT: normocephalic, atraumatic, anicteric, mucous membranes moist, EOMI, pharynx normal, supple, no JVD Respiratory/Chest: lungs clear, normal breath sounds, no respiratory distress, no accessory muscle use Cardiovascular: normal rate, regular rhythm, no gallop/murmur, no JVD Abdomen: normal bowel sounds, soft, non tender, no organomegaly, non distended Genitourinary: other - + ch Extremities: no cyanosis Skin: no rash Neurologic/Psychiatric: protection [employer] II-XII grossly normal, alert, responsive Lymphatic: no neck adenopathy Musculoskeletal: no effusion Objective CT abdomen and pelvis: Impression: Gallbladder wall edema and pericholecystic stranding, without CT evidence of cholelithiasis. Findings are concerning for acute cholecystitis, either acalculous or due to occult calculi. Recommend sonographic correlation Bilateral basilar pulmonary parenchymal atelectasis and bilateral pleural effusions. Generalized interstitial septal thickening is concerning for pulmonary edema Cardiomegaly Diverticulosis. No evidence of diverticulitis. Normal: Ch catheter Penile prosthesis reservoir noted in the pelvis Nonspecific bilateral perinephric fat stranding, significance indeterminate although suspect chronic Border line chf This agrees with the preliminary interpretation provided overnight by [facility] teleradiology service. The CT scanner at [facility] is accredited by the [employer] and the scans are performed using protocols designed to limit radiation exposure to as low as reasonably achievable to attain images of sufficient resolution adequate for diagnostic evaluation. Chest x-ray - [facility] abdomen - Impression: Negative for gallstones. There is borderline gallbladder wall thickening, significance uncertain. Consider nuclear medicine hepatobiliary scan if there is high clinical suspicion for acute acalculous cholecystitis Dilated common bile duct, more evident than on prior CT scan of 11/01/2017. Downstream obstruction with excludable. Correlate with liver function tests Bilateral pleural effusions Chest x-ray - 11/04 - Impression: Improved interstitial edema with slight degree of residual, over 3 days Probable small left pleural effusion Hida - negative Microbiology Date/Time Source Procedure Growth Status 11/01/17 12:20 Blood Blood Culture - Preliminary NO GROWTH AFTER 4 DAYS Resulted 11/01/17 18:00 Nasal Nares Left MRSA Culture - Final NO METHICILLIN RESISTANT STAPH AUREUS... Complete 11/02/17 19:00 Indwelling Cath Urine Culture - Final NO GROWTH AFTER 48 HOURS Complete 11/01/17 18:00 Rectum VRE Culture - Final NO VANCOMYCIN RESISTANT ENTEROCOCCUS ... Complete Laboratory Tests Test 11/06/17 06:24 White Blood Count 7.6 K/UL (4.8-10.8) Red Blood Count 3.78 M/UL (4.70-6.10) L Hemoglobin 10.4 G/DL (14.2-18.0) L Hematocrit 30.6 % (42.0-52.0) L Mean Corpuscular Volume 81 FL (80-99) Mean Corpuscular Hemoglobin 27.5 PG (27.0-31.0) Mean Corpuscular Hemoglobin Concent 34.0 G/DL (32.0-36.0) Red Cell Distribution Width 14.1 % (11.6-14.8) Platelet Count 216 K/UL (150-450) Mean Platelet Volume 9.5 FL (6.5-10.1) Neutrophils (%) (Auto) 73.2 % (45.0-75.0) Lymphocytes (%) (Auto) 10.9 % (20.0-45.0) L Monocytes (%) (Auto) 10.8 % (1.0-10.0) H Eosinophils (%) (Auto) 4.0 % (0.0-3.0) H Basophils (%) (Auto) 1.2 % (0.0-2.0) Sodium Level 140 MMOL/L (136-145) Potassium Level 4.9 MMOL/L (3.5-5.1) Chloride Level 107 MMOL/L (98-107) Carbon Dioxide Level 23 MMOL/L (21-32) Anion Gap 10 mmol/L (5-15) Blood Urea Nitrogen 51 mg/dL (7-18) H Creatinine 3.4 MG/DL (0.55-1.30) H Estimat Glomerular Filtration Rate mL/min (>60) Glucose Level 120 MG/DL (74-106) H Calcium Level 7.8 MG/DL (8.5-10.1) L Current Medications Medications (Trade) Dose Ordered Sig/Marie Route PRN Reason Start Time Stop Time Status Last Admin Dose Admin Acetaminophen/ Codeine Phosphate (Tylenol #3) 2 tab Q6H PRN ORAL Moderate Pain (Scale 4-6) 11/03/17 16:00 11/08/17 21:59 Albuterol Sulfate (Proventil MDI) 1 puff Q6HRT INH 11/03/17 19:00 12/03/17 18:59 11/06/17 13:04 Aspirin (Ecotrin) 81 mg DAILY ORAL 11/04/17 09:00 12/02/17 08:59 11/06/17 08:48 Atorvastatin Calcium (Lipitor) 80 mg QHS ORAL 11/03/17 21:00 12/02/17 20:59 11/05/17 22:19 Clopidogrel Bisulfate (Plavix) 75 mg DAILY ORAL 11/04/17 09:00 12/02/17 08:59 11/06/17 08:48 Dextrose (Dextrose 50%) STAT PRN IV Hypoglycemia 11/03/17 13:30 12/01/17 13:29 Gabapentin (Neurontin) 100 mg BID ORAL 11/03/17 18:00 12/02/17 08:59 11/06/17 08:48 Hydromorphone HCl (Dilaudid) 0.5 mg Q4H PRN IVP Severe Pain (Scale 7-10) 11/03/17 12:15 11/10/17 00:14 Insulin Aspart (NovoLOG) BEFORE MEALS AND HS SUBQ 11/03/17 16:30 3/6/18 06:29 11/06/17 11:30 Insulin Detemir (Levemir) 8 units BEDTIME SUBQ 11/05/17 21:00 12/05/17 20:59 Ondansetron HCl (Zofran) 4 mg Q6H PRN IVP Nausea & Vomiting 11/03/17 14:00 12/02/17 01:59 11/04/17 17:05 Piperacillin Sod/ Tazobactam Sod 3.375 gm/Sodium Chloride 110 ml @ 27.5 mls/hr Q12HR IVPB 11/03/17 21:00 11/09/17 20:59 11/06/17 09:15 Ranolazine (Ranexa ER 500mg) 500 mg EVERY 12 HOURS ORAL 11/03/17 21:00 12/02/17 08:59 11/06/17 08:48 Tamsulosin HCl (Flomax) 0.4 mg BEDTIME ORAL 11/03/17 21:00 12/03/17 20:59 11/05/17 22:18 CYRUS ELISE Nov 06, 2017 15:16
[2017-11-06 16:00] VITALS: BP 178/80
--- NOTE | 2017-11-06 17:05 | Diagnostic Imaging Report ---
Indication: Infection Technique: XRAY Chest 1v Comparison: 11/04/2017 Findings: Heart size and mediastinal contours are stable. There is persistent but improving mild interstitial opacification/edema. No focal airspace consolidation, no pleural effusion or pneumothorax. No acute osseous abnormality seen. Impression: Continued improvement of interstitial opacification/edema with very mild residual.
--- NOTE | 2017-11-06 17:22 | General Surgery Progress Note ---
General Surgery-Progress Note Subjective Symptoms: improved Additional Comments doing great. no acute events. ambulatory. comfortable. no complaints. no n/v /f/c. Objective Last 24 Hour Vital Signs Date Time Temp Pulse Resp B/P (MAP) Pulse Ox O2 Delivery O2 Flow Rate FiO2 11/06/17 16:00 97.5 65 22 178/80 96 Room Air 11/06/17 13:02 72 18 97 Room Air 21 11/06/17 13:02 73 18 99 Room Air 21 11/06/17 12:00 75 11/06/17 12:00 97.3 69 20 148/80 96 Room Air 11/06/17 08:00 87 11/06/17 08:00 98.2 73 20 150/63 98 Nasal Cannula 3.0 11/06/17 07:03 100 Nasal Cannula 3.0 32 11/06/17 07:03 Nasal Cannula 3.0 32 11/06/17 07:01 77 18 100 Nasal Cannula 3.0 32 11/06/17 07:01 78 18 99 Nasal Cannula 2.0 28 11/06/17 04:00 71 11/06/17 04:00 98.1 77 20 150/71 98 Nasal Cannula 3.0 11/06/17 01:24 87 20 97 Nasal Cannula 3.0 32 11/06/17 01:22 87 20 97 Nasal Cannula 3.0 32 11/06/17 00:00 80 11/06/17 00:00 98.1 80 20 161/75 98 Nasal Cannula 3.0 11/05/17 20:00 76 11/05/17 20:00 98.2 77 20 151/74 96 Nasal Cannula 3.0 11/05/17 19:40 87 20 97 Nasal Cannula 3.0 32 11/05/17 19:38 87 20 97 Nasal Cannula 3.0 32 11/05/17 19:38 Nasal Cannula 3.0 32 11/05/17 19:38 97 Nasal Cannula 3.0 32 I&O Intake and Output 11/05/17 11/06/17 19:00 07:00 Intake Total 830.0 ml Output Total 1400 ml 1000 ml Balance -570.0 ml -1000 ml Intake Oral 720 ml IV Total 110.0 ml Output Urine Total 1400 ml 1000 ml # Bowel Movements 2 1 Cardiovascular: RSR Respiratory: clear Abdomen: soft, distended, non-tender, present bowel sounds Extremities: no cyanosis Laboratory Tests Test 11/06/17 06:24 White Blood Count 7.6 K/UL (4.8-10.8) Red Blood Count 3.78 M/UL (4.70-6.10) L Hemoglobin 10.4 G/DL (14.2-18.0) L Hematocrit 30.6 % (42.0-52.0) L Mean Corpuscular Volume 81 FL (80-99) Mean Corpuscular Hemoglobin 27.5 PG (27.0-31.0) Mean Corpuscular Hemoglobin Concent 34.0 G/DL (32.0-36.0) Red Cell Distribution Width 14.1 % (11.6-14.8) Platelet Count 216 K/UL (150-450) Mean Platelet Volume 9.5 FL (6.5-10.1) Neutrophils (%) (Auto) 73.2 % (45.0-75.0) Lymphocytes (%) (Auto) 10.9 % (20.0-45.0) L Monocytes (%) (Auto) 10.8 % (1.0-10.0) H Eosinophils (%) (Auto) 4.0 % (0.0-3.0) H Basophils (%) (Auto) 1.2 % (0.0-2.0) Sodium Level 140 MMOL/L (136-145) Potassium Level 4.9 MMOL/L (3.5-5.1) Chloride Level 107 MMOL/L (98-107) Carbon Dioxide Level 23 MMOL/L (21-32) Anion Gap 10 mmol/L (5-15) Blood Urea Nitrogen 51 mg/dL (7-18) H Creatinine 3.4 MG/DL (0.55-1.30) H Estimat Glomerular Filtration Rate mL/min (>60) Glucose Level 120 MG/DL (74-106) H Calcium Level 7.8 MG/DL (8.5-10.1) L Plan Problems: (1) Septic shock Assessment & Plan: 77 year old male presented in septic shock. initially in ICU on pressors but with resuscitation has since weaned off pressors and downgraded. on broad spectrum IV Abx. possible etiology UTI vs cholecystitis vs other. Leukocytosis resolved. afebrile, HD stable, exam benign. Labs reviewed and renal function improving. LFT's normal. no abdominal pain or RUQ pain. CT demonstrated possible acalculous cholecystitis with edema and pericholecystic stranding. Ultrasound completed and similar findings not confirmed. US demonstrates borderline thickening of GB wall, no stones, no distention, normal biliary tract. HIDA negative. Unlikely etiology to be acute acalculous cholecystitis given findings, exam, and labs. No acute surgical intervention necessary. okay for diet ambulate and oob d/c planning thank you for this consultation Red Lima Nov 06, 2017 17:22
[2017-11-06 20:00] VITALS: BP 152/83
[2017-11-06] MEDS: Levemir Flexpen SUBQ SCH ×2 (21:00→22:36)
[2017-11-06] MEDS: Tamsulosin 0.4mg cap ORAL SCH (21:21)
[2017-11-06] MEDS: Atorvastatin 80mg tab ORAL SCH (21:21)
[2017-11-07] MEDS ORDERED: Hydromorphone 0.5mg/0.5ml inj IVP PRN (00:15)
[2017-11-07 00:36] VITALS: BP 162/73
[2017-11-07] MEDS: Albuterol 90mcg Inhaler 8gm INH SCH (01:00)
[2017-11-07] MEDS: Metoprolol 25mg tab ORAL SCH ×3 (03:05→20:24)
[2017-11-07 04:00] VITALS: BP 152/69
[2017-11-07] MEDS ORDERED: Tylenol #3 tab (300mg/30mg) ORAL PRN (04:00)
--- NOTE | 2017-11-07 05:00 | Progress Note ---
DATE: 11/05/2017 CARDIOLOGY PROGRESS NOTE SUBJECTIVE: The patient is off pressors. Blood pressure parameters are stable and increasing. The patient has no shortness of breath. Renal parameters remained poor. PHYSICAL EXAMINATION: VITAL SIGNS: Blood pressure 124/60, pulse 72, and respiratory rate 18. LUNGS: Few rales with diminished breath sounds. HEART: Regular rhythm and rate. Normal S1, S2 with a fourth heart sound. ABDOMEN: Soft. EXTREMITIES: Trace edema. LABORATORY DATA: Reviewed. Creatinine is up to 5. IMPRESSION: 1. Sepsis with shock. 2. Acute renal failure due to acute tubular necrosis. 3. Hypertensive heart disease, now off antihypertensives with stable readings. PLAN: 1. Condition improved, but still serious. The patient may need dialysis. I would hold antihypertensives and continue observation on cardiac monitoring. 2. Maintain adequate hydration. 3. No diuretics. 4. No angiotensin-converting enzyme inhibitors. 5. No angiotensin receptor blockers. 6. We will follow. Gilmer Downing M.D. DR: CRISTIAN JOB#: [id number] CC:
--- NOTE | 2017-11-07 06:00 | Progress Note ---
DATE: 11/06/2017 CARDIOLOGY PROGRESS NOTE SUBJECTIVE: The patient is more alert. Feeling better. No shortness of breath. Blood pressure parameters are increasing. PHYSICAL EXAMINATION: VITAL SIGNS: Blood pressure 150/63, pulse 73, respiratory rate 20, and afebrile. LUNGS: Good breath sounds. HEART: Regular rhythm and rate. Normal S1 and S2. ABDOMEN: Soft. No edema. LABS: White count 7.6 and hemoglobin 10.4. Sodium 140, potassium 4.9, bicarb 23, BUN 51, and creatinine 3.4. IMPRESSION: 1. Acute renal failure recovering. 2. Sepsis with shock, resolved. 3. Hypertensive heart disease with rising blood pressure trend. 4. Anemia, likely due to renal disease. 5. Acute diastolic congestive heart failure, improving as noted by today's chest radiograph. PLAN: No diuretics at this time. Avoid angiotensin-converting enzyme inhibitors for now. Continue the antiplatelet therapy. We would discontinue Ranexa for now. Restart beta-giovanna with caution to avoid hypotension. Gilmer Downing M.D. DR: CRISTIAN JOB#: [id number] CC:
[2017-11-07] MEDS: NovoLOG Insulin Flexpen SUBQ SCH ×4 (06:55→20:44)
[2017-11-07 08:00] VITALS: BP 155/75
[2017-11-07 08:26] LABS: BASOPHILS % (AUTO) 1.2 % (0.0-2.0); EOSINOPHILS % (AUTO) 4.4 % (0.0-3.0); HEMATOCRIT 30.8 % (42.0-52.0); HEMOGLOBIN 10.3 G/DL (14.2-18.0); MEAN CORPUSCULAR VOLUME 81 FL (80-99); MONOCYTES % (AUTO) 6.5 % (1.0-10.0); NEUTROPHILS % (AUTO) 73.9 % (45.0-75.0); PLATELET COUNT 234 K/UL (150-450); RED BLOOD COUNT 3.81 M/UL (4.70-6.10); RED CELL DISTRIBUTION WIDTH 14.6 % (11.6-14.8); WHITE BLOOD COUNT 6.7 K/UL (4.8-10.8)
[2017-11-07 08:44] LABS: ANION GAP 5 mmol/L (5-15); BLOOD UREA NITROGEN 36 mg/dL (7-18); CALCIUM 7.7 MG/DL (8.5-10.1); CARBON DIOXIDE 28 MMOL/L (21-32); CHLORIDE 105 MMOL/L (98-107); CREATININE 2.5 MG/DL (0.55-1.30); POTASSIUM 4.8 MMOL/L (3.5-5.1); SODIUM 138 MMOL/L (136-145)
[2017-11-07] MEDS ORDERED: Ranolazine 500mg tab ORAL SCH (09:00)
[2017-11-07] MEDS: Aspirin EC 81mg tab ORAL SCH (09:39)
--- NOTE | 2017-11-07 10:27 | Pulmonology Progress Note ---
Assessment/Plan Assessment/Plan 1. Renal failure. Renal consult noted. 2. Septic shock. Resolved 3. Altered mental status. Improved; but still confused 4. Urinary tract infection. 5. Hyponatremia. 6. Malnutrition, moderate. 7. Possible cholecystitis 8. Diabetes mellitus. 10. Pulm edema DISCUSSION: Continue medications Tellez removal today Renal followup Subjective Interval Events: None Constitutional: Reports: no symptoms HEENT: Repors: no symptoms Respiratory: Reports: no symptoms Cardiovascular: Reports: no symptoms Gastrointestinal/Abdominal: Reports: no symptoms Genitourinary: Reports: no symptoms Allergies: Coded Allergies: No Known Allergies (Unverified , 11/01/17) Objective Last 24 Hour Vital Signs Date Time Temp Pulse Resp B/P (MAP) Pulse Ox O2 Delivery O2 Flow Rate FiO2 11/07/17 09:39 69 155/75 11/07/17 08:00 98.1 69 19 155/75 98 11/07/17 04:00 98.4 66 18 152/69 96 11/07/17 03:05 63 162/73 11/07/17 00:36 98.1 63 18 162/73 98 11/06/17 20:00 97.7 78 24 152/83 94 Room Air 11/06/17 19:02 87 18 97 Room Air 21 11/06/17 19:02 76 18 98 Room Air 21 11/06/17 19:01 97 Nasal Cannula 21 11/06/17 19:01 Room Air 21 11/06/17 16:00 65 11/06/17 16:00 97.5 65 22 178/80 96 Room Air 11/06/17 13:02 72 18 97 Room Air 21 11/06/17 13:02 73 18 99 Room Air 21 11/06/17 12:00 75 11/06/17 12:00 97.3 69 20 148/80 96 Room Air Intake and Output 11/06/17 11/07/17 19:00 07:00 Intake Total 830.0 ml 590.0 ml Output Total 1500 ml 1150 ml Balance -670.0 ml -560.0 ml Intake Oral 720 ml 480 ml IV Total 110.0 ml 110.0 ml Output Urine Total 1500 ml 1150 ml # Voids 1 # Bowel Movements 2 HEENT: normocephalic Respiratory/Chest: chest wall non-tender Cardiovascular: normal peripheral pulses Abdomen: normal bowel sounds Laboratory Tests 11/07/17 08:05: White Blood Count 6.7, Red Blood Count 3.81L, Hemoglobin 10.3L, Hematocrit 30.8L , Mean Corpuscular Volume 81, Mean Corpuscular Hemoglobin 27.1, Mean Corpuscular Hemoglobin Concent 33.5, Red Cell Distribution Width 14.6, Platelet Count 234, Mean Platelet Volume 8.9, Neutrophils (%) (Auto) 73.9, Lymphocytes (% ) (Auto) 14.0L, Monocytes (%) (Auto) 6.5, Eosinophils (%) (Auto) 4.4H, Basophils (%) (Auto) 1.2, Sodium Level 138, Potassium Level 4.8, Chloride Level 105, Carbon Dioxide Level 28, Anion Gap 5, Blood Urea Nitrogen 36H, Creatinine 2.5H, Estimat Glomerular Filtration Rate , Glucose Level 140H, Calcium Level 7.7L Current Medications Medications (Trade) Dose Ordered Sig/Marie Route PRN Reason Start Time Stop Time Status Last Admin Dose Admin Acetaminophen/ Codeine Phosphate (Tylenol #3) 2 tab Q6H PRN ORAL Moderate Pain (Scale 4-6) 11/07/17 04:00 11/08/17 21:59 Albuterol Sulfate (Proventil MDI) 1 puff Q6HRT INH 11/07/17 01:00 12/07/17 00:59 Aspirin (Ecotrin) 81 mg DAILY ORAL 11/07/17 09:00 12/02/17 08:59 11/07/17 09:39 Atorvastatin Calcium (Lipitor) 80 mg QHS ORAL 11/07/17 21:00 12/02/17 20:59 Clopidogrel Bisulfate (Plavix) 75 mg DAILY ORAL 11/07/17 09:00 12/02/17 08:59 11/07/17 09:39 Dextrose (Dextrose 50%) STAT PRN IV Hypoglycemia 11/07/17 13:30 12/01/17 13:29 Gabapentin (Neurontin) 100 mg BID ORAL 11/07/17 09:00 12/07/17 08:59 11/07/17 09:39 Hydromorphone HCl (Dilaudid) 0.5 mg Q4H PRN IVP Severe Pain (Scale 7-10) 11/07/17 00:15 11/10/17 00:14 Insulin Aspart (NovoLOG) BEFORE MEALS AND HS SUBQ 11/06/17 22:30 12/06/17 22:29 11/07/17 06:55 Insulin Detemir (Levemir) 8 units BEDTIME SUBQ 11/07/17 22:30 12/05/17 22:29 11/06/17 22:36 Metoprolol Tartrate (Lopressor) 25 mg Q12HR ORAL 11/07/17 02:30 12/07/17 02:29 11/07/17 09:39 Ondansetron HCl (Zofran) 4 mg Q6H PRN IVP Nausea & Vomiting 11/07/17 02:00 12/02/17 01:59 Piperacillin Sod/ Tazobactam Sod 3.375 gm/Sodium Chloride 110 ml @ 27.5 mls/hr Q12HR IVPB 11/07/17 09:00 11/14/17 08:59 Tamsulosin HCl (Flomax) 0.4 mg BEDTIME ORAL 11/07/17 21:00 12/03/17 20:59 Robles Jones MD Nov 07, 2017 10:27
[2017-11-07 12:00] VITALS: BP 150/66
--- NOTE | 2017-11-07 12:34 | General Surgery Progress Note ---
General Surgery-Progress Note Subjective Additional Comments no acute events. doing well. no complaints. wants to go home. good urine since ch out labs improved Objective Last 24 Hour Vital Signs Date Time Temp Pulse Resp B/P (MAP) Pulse Ox O2 Delivery O2 Flow Rate FiO2 11/07/17 09:39 69 155/75 11/07/17 08:00 98.1 69 19 155/75 98 11/07/17 04:00 98.4 66 18 152/69 96 11/07/17 03:05 63 162/73 11/07/17 00:36 98.1 63 18 162/73 98 11/06/17 20:00 97.7 78 24 152/83 94 Room Air 11/06/17 19:02 87 18 97 Room Air 21 11/06/17 19:02 76 18 98 Room Air 21 11/06/17 19:01 97 Nasal Cannula 21 11/06/17 19:01 Room Air 21 11/06/17 16:00 65 11/06/17 16:00 97.5 65 22 178/80 96 Room Air 11/06/17 13:02 72 18 97 Room Air 21 11/06/17 13:02 73 18 99 Room Air 21 I&O Intake and Output 11/06/17 11/07/17 19:00 07:00 Intake Total 830.0 ml 590.0 ml Output Total 1500 ml 1150 ml Balance -670.0 ml -560.0 ml Intake Oral 720 ml 480 ml IV Total 110.0 ml 110.0 ml Output Urine Total 1500 ml 1150 ml # Voids 1 # Bowel Movements 2 Cardiovascular: RSR Respiratory: clear Abdomen: soft, distended, non-tender, present bowel sounds Extremities: no cyanosis Laboratory Tests Test 11/07/17 08:05 White Blood Count 6.7 K/UL (4.8-10.8) Red Blood Count 3.81 M/UL (4.70-6.10) L Hemoglobin 10.3 G/DL (14.2-18.0) L Hematocrit 30.8 % (42.0-52.0) L Mean Corpuscular Volume 81 FL (80-99) Mean Corpuscular Hemoglobin 27.1 PG (27.0-31.0) Mean Corpuscular Hemoglobin Concent 33.5 G/DL (32.0-36.0) Red Cell Distribution Width 14.6 % (11.6-14.8) Platelet Count 234 K/UL (150-450) Mean Platelet Volume 8.9 FL (6.5-10.1) Neutrophils (%) (Auto) 73.9 % (45.0-75.0) Lymphocytes (%) (Auto) 14.0 % (20.0-45.0) L Monocytes (%) (Auto) 6.5 % (1.0-10.0) Eosinophils (%) (Auto) 4.4 % (0.0-3.0) H Basophils (%) (Auto) 1.2 % (0.0-2.0) Sodium Level 138 MMOL/L (136-145) Potassium Level 4.8 MMOL/L (3.5-5.1) Chloride Level 105 MMOL/L (98-107) Carbon Dioxide Level 28 MMOL/L (21-32) Anion Gap 5 mmol/L (5-15) Blood Urea Nitrogen 36 mg/dL (7-18) H Creatinine 2.5 MG/DL (0.55-1.30) H Estimat Glomerular Filtration Rate mL/min (>60) Glucose Level 140 MG/DL (74-106) H Calcium Level 7.7 MG/DL (8.5-10.1) L Plan Problems: (1) Septic shock Assessment & Plan: 77 year old male presented in septic shock. initially in ICU on pressors but with resuscitation has since weaned off pressors and downgraded. on broad spectrum IV Abx. possible etiology UTI vs cholecystitis vs other. Leukocytosis resolved. afebrile, HD stable, exam benign. Labs reviewed and renal function improving. LFT's normal. no abdominal pain or RUQ pain. CT demonstrated possible acalculous cholecystitis with edema and pericholecystic stranding. Ultrasound completed and similar findings not confirmed. US demonstrates borderline thickening of GB wall, no stones, no distention, normal biliary tract. HIDA negative. Unlikely etiology to be acute acalculous cholecystitis given findings, exam, and labs. No acute surgical intervention necessary. okay for diet ambulate and oob okay to d/c from surgical standpoint thank you for this consultation Red Lima Nov 07, 2017 12:34
[2017-11-07] MEDS: Piperacillin/Tazobactam 3.375 GM in NS 110 ML IVPB SCH ×2 (13:14→20:22)
--- NOTE | 2017-11-07 13:30 | Infectious Diseases Prog Note ---
Assessment/Plan Assessment/Plan ASSESSMENT AND PLAN: 1. sepsis, shock, ? uti, ? cholecystitis on ct scan, leukocytosis, sob, edema, arf - clinically better, leukocytosis resolved - zosyn for now - day # 6/10 abx, can discharge on oral cipro 250mg bid for 4 days - urine culture negative but patient on abx prior to urine culture - bp better, no pressors - hida - negative, cholecystitis less likely 2. Acute renal failure, anemia, Ch, chf/pulmonary edema - ? renal evaluation , cardiology consult noted 3. Diabetes. 4. GIB 5. Possible hyperlipidemia. He is on Lipitor. 6. Hyponatremia. 7. No known allergies. 8. Social history negative. 9. Family history noncontributory. 10. MAR was noted. 11. Case was discussed with RN. 12. Continue treatment per primary consultants. 13. Case was discussed with the patient's family. 14. patient now in telemetry Subjective Constitutional: Denies: fever HEENT: Denies: congestion Respiratory: Denies: shortness of breath Cardiovascular: Denies: chest pain Gastrointestinal/Abdominal: Denies: nausea, vomiting, diarrhea Genitourinary: Reports: other - ch removed, Denies: dysuria, hematuria, frequency Neurologic: Denies: headache Psychiatric: Denies: depression Skin: Denies: rash Hematologic: Denies: bleeding Musculoskeletal: Denies: pain Allergies: Coded Allergies: No Known Allergies (Unverified , 11/01/17) Objective Vital Signs Last 24 Hour Vital Signs Date Time Temp Pulse Resp B/P (MAP) Pulse Ox O2 Delivery O2 Flow Rate FiO2 11/07/17 12:00 97.9 64 19 150/66 96 11/07/17 09:39 69 155/75 11/07/17 08:00 98.1 69 19 155/75 98 11/07/17 04:00 98.4 66 18 152/69 96 11/07/17 03:05 63 162/73 11/07/17 00:36 98.1 63 18 162/73 98 11/06/17 20:00 97.7 78 24 152/83 94 Room Air 11/06/17 19:02 87 18 97 Room Air 21 11/06/17 19:02 76 18 98 Room Air 21 11/06/17 19:01 97 Nasal Cannula 21 11/06/17 19:01 Room Air 21 11/06/17 16:00 65 11/06/17 16:00 97.5 65 22 178/80 96 Room Air Height (Feet): 5 Height (Inches): 4.00 Weight (Pounds): 174 General Appearance: no acute distress HEENT: normocephalic, atraumatic, anicteric, mucous membranes moist Respiratory/Chest: lungs clear, normal breath sounds, no respiratory distress, no accessory muscle use Cardiovascular: normal rate, regular rhythm, no gallop/murmur, no JVD Abdomen: normal bowel sounds, soft, non tender, no organomegaly, non distended Genitourinary: other - no cva pain Extremities: no cyanosis Skin: no rash Neurologic/Psychiatric: pillowcase folder II-XII grossly normal, alert, responsive Lymphatic: no neck adenopathy Musculoskeletal: no effusion Objective CT abdomen and pelvis: Impression: Gallbladder wall edema and pericholecystic stranding, without CT evidence of cholelithiasis. Findings are concerning for acute cholecystitis, either acalculous or due to occult calculi. Recommend sonographic correlation Bilateral basilar pulmonary parenchymal atelectasis and bilateral pleural effusions. Generalized interstitial septal thickening is concerning for pulmonary edema Cardiomegaly Diverticulosis. No evidence of diverticulitis. Normal: Ch catheter Penile prosthesis reservoir noted in the pelvis Nonspecific bilateral perinephric fat stranding, significance indeterminate although suspect chronic Border line chf This agrees with the preliminary interpretation provided overnight by [facility] service. The CT scanner at [facility] is accredited by the [employer] [place] [employer] and the scans are performed using protocols designed to limit radiation exposure to as low as reasonably achievable to attain images of sufficient resolution adequate for diagnostic evaluation. Chest x-ray - [facility] abdomen - Impression: Negative for gallstones. There is borderline gallbladder wall thickening, significance uncertain. Consider nuclear medicine hepatobiliary scan if there is high clinical suspicion for acute acalculous cholecystitis Dilated common bile duct, more evident than on prior CT scan of 11/01/2017. Downstream obstruction with excludable. Correlate with liver function tests Bilateral pleural effusions Chest x-ray - 11/04 - Impression: Improved interstitial edema with slight degree of residual, over 3 days Probable small left pleural effusion Hida - negative Microbiology Date/Time Source Procedure Growth Status 11/01/17 12:20 Blood Blood Culture - Final NO GROWTH AFTER 5 DAYS Complete 2/3/18 18:00 Nasal Nares Left MRSA Culture - Final NO METHICILLIN RESISTANT STAPH AUREUS... Complete 11/02/17 19:00 Indwelling Cath Urine Culture - Final NO GROWTH AFTER 48 HOURS Complete 11/01/17 18:00 Rectum VRE Culture - Final NO VANCOMYCIN RESISTANT ENTEROCOCCUS ... Complete Laboratory Tests Test 11/07/17 08:05 White Blood Count 6.7 K/UL (4.8-10.8) Red Blood Count 3.81 M/UL (4.70-6.10) L Hemoglobin 10.3 G/DL (14.2-18.0) L Hematocrit 30.8 % (42.0-52.0) L Mean Corpuscular Volume 81 FL (80-99) Mean Corpuscular Hemoglobin 27.1 PG (27.0-31.0) Mean Corpuscular Hemoglobin Concent 33.5 G/DL (32.0-36.0) Red Cell Distribution Width 14.6 % (11.6-14.8) Platelet Count 234 K/UL (150-450) Mean Platelet Volume 8.9 FL (6.5-10.1) Neutrophils (%) (Auto) 73.9 % (45.0-75.0) Lymphocytes (%) (Auto) 14.0 % (20.0-45.0) L Monocytes (%) (Auto) 6.5 % (1.0-10.0) Eosinophils (%) (Auto) 4.4 % (0.0-3.0) H Basophils (%) (Auto) 1.2 % (0.0-2.0) Sodium Level 138 MMOL/L (136-145) Potassium Level 4.8 MMOL/L (3.5-5.1) Chloride Level 105 MMOL/L (98-107) Carbon Dioxide Level 28 MMOL/L (21-32) Anion Gap 5 mmol/L (5-15) Blood Urea Nitrogen 36 mg/dL (7-18) H Creatinine 2.5 MG/DL (0.55-1.30) H Estimat Glomerular Filtration Rate mL/min (>60) Glucose Level 140 MG/DL (74-106) H Calcium Level 7.7 MG/DL (8.5-10.1) L Current Medications Medications (Trade) Dose Ordered Sig/Marie Route PRN Reason Start Time Stop Time Status Last Admin Dose Admin Acetaminophen/ Codeine Phosphate (Tylenol #3) 2 tab Q6H PRN ORAL Moderate Pain (Scale 4-6) 11/07/17 04:00 11/08/17 21:59 Albuterol Sulfate (Proventil MDI) 1 puff Q6HRT INH 11/07/17 01:00 12/07/17 00:59 Aspirin (Ecotrin) 81 mg DAILY ORAL 11/07/17 09:00 12/02/17 08:59 11/07/17 09:39 Atorvastatin Calcium (Lipitor) 80 mg QHS ORAL 11/07/17 21:00 12/02/17 20:59 Clopidogrel Bisulfate (Plavix) 75 mg DAILY ORAL 11/07/17 09:00 12/02/17 08:59 11/07/17 09:39 Dextrose (Dextrose 50%) STAT PRN IV Hypoglycemia 11/07/17 13:30 12/01/17 13:29 Gabapentin (Neurontin) 100 mg BID ORAL 11/07/17 09:00 12/07/17 08:59 11/07/17 09:39 Hydromorphone HCl (Dilaudid) 0.5 mg Q4H PRN IVP Severe Pain (Scale 7-10) 11/07/17 00:15 11/10/17 00:14 Insulin Aspart (NovoLOG) BEFORE MEALS AND HS SUBQ 11/06/17 22:30 12/06/17 22:29 11/07/17 13:14 Insulin Detemir (Levemir) 8 units BEDTIME SUBQ 11/07/17 22:30 12/05/17 22:29 11/06/17 22:36 Metoprolol Tartrate (Lopressor) 25 mg Q12HR ORAL 11/07/17 02:30 12/07/17 02:29 11/07/17 09:39 Ondansetron HCl (Zofran) 4 mg Q6H PRN IVP Nausea & Vomiting 11/07/17 02:00 12/02/17 01:59 Piperacillin Sod/ Tazobactam Sod 3.375 gm/Sodium Chloride 110 ml @ 27.5 mls/hr Q12HR IVPB 11/07/17 09:00 11/14/17 08:59 11/07/17 13:14 Tamsulosin HCl (Flomax) 0.4 mg BEDTIME ORAL 11/07/17 21:00 12/03/17 20:59 CYRUS ELISE Nov 07, 2017 13:30
[2017-11-07 16:00] VITALS: BP 162/69
[2017-11-07 20:36] VITALS: BP 172/71
[2017-11-07] MEDS ORDERED: Tamsulosin 0.4mg cap ORAL SCH (21:00)
[2017-11-07] MEDS ORDERED: Atorvastatin 80mg tab ORAL SCH (21:00)
[2017-11-07] MEDS: Levemir Flexpen SUBQ SCH (22:38)
[2017-11-08 00:07] VITALS: BP 158/67
--- NOTE | 2017-11-08 01:00 | Progress Note ---
DATE: 11/07/2017 CARDIOLOGY PROGRESS NOTE SUBJECTIVE: The patient is without chest pain or shortness of breath. Blood pressure parameters are stable. Trend of blood pressure is up. Tellez catheter is removed. The voiding trial initiated. OBJECTIVE: VITAL SIGNS: Blood pressure 155/75, pulse 69, and respirations 19. LUNGS: Clear. CARDIAC: Regular. ABDOMEN: Soft. BACK: No CVA tenderness. EXTREMITIES: Trace edema. LABORATORY DATA: White count 6.7 and hemoglobin 10.3. Potassium 4.8, BUN 36, and creatinine 2.5. IMPRESSION: 1. Sepsis with shock, recovered. 2. Acute renal failure due to acute tubular necrosis, improved. 3. Acute diastolic congestive heart failure precipitated by renal failure and sepsis. 4. Hypertensive heart disease now with rising blood pressure trend. 5. Ischemic cardiomyopathy presently with stable angina. PLAN: 1. Voiding trial. 2. Antimicrobials. 3. Insulin titration. 4. Antiplatelet therapy. 5. Maintain statin drug. 6. Beta-giovanna resumed, up titrate. 7. Continue to hold angiotensin-converting enzyme inhibitors. Gilmer Downing M.D. DR: GE JOB#: [id number] CC:
[2017-11-08 04:50] VITALS: BP 152/55
[2017-11-08] MEDS: NovoLOG Insulin Flexpen SUBQ SCH (06:31)
--- NOTE | 2017-11-08 06:33 | General Progress Note ---
Assessment/Plan Problem List: (1) Diabetes mellitus out of control ICD Codes: E11.65 - Type 2 diabetes mellitus with hyperglycemia SNOMED: 75953913, 494711668 (2) Septic shock ICD Codes: A41.9 - Sepsis, unspecified organism; R65.21 - Severe sepsis with septic shock SNOMED: 65289926 (3) Hypotension ICD Codes: I95.9 - Hypotension, unspecified SNOMED: 79082732 Assessment/Plan increase Levemir to 10 units qhs add Starlix 60 mg ac tid continue NISS Subjective Allergies: Coded Allergies: No Known Allergies (Unverified , 11/01/17) All Systems: reviewed and negative except above Subjective events noted - interval notes reviewed doing fine at bedside fasting glucose is controlled mealtime glucose is elevated Objective Last 24 Hour Vital Signs Date Time Temp Pulse Resp B/P (MAP) Pulse Ox O2 Delivery O2 Flow Rate FiO2 11/08/17 05:35 Room Air 11/08/17 05:34 Room Air 11/08/17 04:50 98.9 69 18 152/55 96 11/08/17 00:07 99.1 62 18 158/67 98 11/07/17 20:36 98.5 66 20 172/71 97 11/07/17 20:24 68 154/75 11/07/17 19:00 100 Nasal Cannula 3.0 32 11/07/17 19:00 Nasal Cannula 3.0 32 11/07/17 16:00 98.7 63 20 162/69 98 11/07/17 12:00 97.9 64 19 150/66 96 11/07/17 09:39 69 155/75 11/07/17 08:00 98.1 69 19 155/75 98 Intake and Output 11/07/17 11/08/17 19:00 07:00 Intake Total 820 ml 360 ml Balance 820 ml 360 ml Intake Oral 820 ml 360 ml # Voids 2 2 # Bowel Movements 1 Laboratory Tests 11/07/17 08:05: White Blood Count 6.7, Red Blood Count 3.81L, Hemoglobin 10.3L, Hematocrit 30.8L , Mean Corpuscular Volume 81, Mean Corpuscular Hemoglobin 27.1, Mean Corpuscular Hemoglobin Concent 33.5, Red Cell Distribution Width 14.6, Platelet Count 234, Mean Platelet Volume 8.9, Neutrophils (%) (Auto) 73.9, Lymphocytes (% ) (Auto) 14.0L, Monocytes (%) (Auto) 6.5, Eosinophils (%) (Auto) 4.4H, Basophils (%) (Auto) 1.2, Sodium Level 138, Potassium Level 4.8, Chloride Level 105, Carbon Dioxide Level 28, Anion Gap 5, Blood Urea Nitrogen 36H, Creatinine 2.5H, Estimat Glomerular Filtration Rate , Glucose Level 140H, Calcium Level 7.7L Height (Feet): 5 Height (Inches): 4.00 Weight (Pounds): 174 General Appearance: no apparent distress Neck: normal alignment Respiratory/Chest: chest wall non-tender Abdomen: non tender Pelvis: normal external exam Edema: no edema noted Arm (L), no edema noted Arm (R), no edema noted Leg (L), no edema noted Leg (R), no edema noted Pedal (L), no edema noted Pedal (R), no edema noted Generalized Objective Current Medications Medications (Trade) Dose Ordered Sig/Marie Route PRN Reason Start Time Stop Time Status Last Admin Dose Admin Acetaminophen/ Codeine Phosphate (Tylenol #3) 2 tab Q6H PRN ORAL Moderate Pain (Scale 4-6) 11/07/17 04:00 11/08/17 21:59 Albuterol Sulfate (Proventil MDI) 1 puff Q6HRT INH 11/07/17 01:00 12/07/17 00:59 Aspirin (Ecotrin) 81 mg DAILY ORAL 11/07/17 09:00 12/02/17 08:59 11/07/17 09:39 Atorvastatin Calcium (Lipitor) 80 mg QHS ORAL 11/07/17 21:00 12/02/17 20:59 11/07/17 20:23 Clopidogrel Bisulfate (Plavix) 75 mg DAILY ORAL 11/07/17 09:00 12/02/17 08:59 11/07/17 09:39 Dextrose (Dextrose 50%) STAT PRN IV Hypoglycemia 11/07/17 13:30 12/01/17 13:29 Gabapentin (Neurontin) 100 mg BID ORAL 11/07/17 09:00 12/07/17 08:59 11/07/17 17:40 Hydromorphone HCl (Dilaudid) 0.5 mg Q4H PRN IVP Severe Pain (Scale 7-10) 11/07/17 00:15 11/10/17 00:14 Insulin Aspart (NovoLOG) BEFORE MEALS AND HS SUBQ 11/06/17 22:30 12/06/17 22:29 11/07/17 20:44 Insulin Detemir (Levemir) 8 units BEDTIME SUBQ 11/07/17 22:30 12/05/17 22:29 11/07/17 22:38 Metoprolol Tartrate (Lopressor) 50 mg Q12HR ORAL 11/08/17 09:00 12/08/17 08:59 Ondansetron HCl (Zofran) 4 mg Q6H PRN IVP Nausea & Vomiting 11/07/17 02:00 12/02/17 01:59 Piperacillin Sod/ Tazobactam Sod 3.375 gm/Sodium Chloride 110 ml @ 27.5 mls/hr Q12HR IVPB 11/07/17 09:00 11/14/17 08:59 11/07/17 20:22 Tamsulosin HCl (Flomax) 0.4 mg BEDTIME ORAL 11/07/17 21:00 12/03/17 20:59 11/07/17 20:22 Item Value Date Time Bedside Blood Glucose 200 mg/dl H 11/07/17 2238 Bedside Blood Glucose 222 mg/dl H 11/07/17 1741 Bedside Blood Glucose 238 mg/dl H 11/07/17 1314 Glucose Level 140 MG/DL H 11/07/17 0805 Bedside Blood Glucose 116 mg/dl 11/07/17 0655 Current Medications Medications (Trade) Dose Ordered Sig/Marie Route PRN Reason Start Time Stop Time Status Last Admin Dose Admin Acetaminophen/ Codeine Phosphate (Tylenol #3) 2 tab Q6H PRN ORAL Moderate Pain (Scale 4-6) 11/03/17 16:00 11/08/17 21:59 Albuterol Sulfate (Proventil MDI) 1 puff Q6HRT INH 11/03/17 19:00 12/03/17 18:59 11/05/17 12:37 Aspirin (Ecotrin) 81 mg DAILY ORAL 11/04/17 09:00 12/02/17 08:59 11/05/17 10:01 Atorvastatin Calcium (Lipitor) 80 mg QHS ORAL 11/03/17 21:00 12/02/17 20:59 11/04/17 21:08 Clopidogrel Bisulfate (Plavix) 75 mg DAILY ORAL 11/04/17 09:00 12/02/17 08:59 11/05/17 10:01 Dextrose (Dextrose 50%) STAT PRN IV Hypoglycemia 11/03/17 13:30 12/01/17 13:29 Gabapentin (Neurontin) 100 mg BID ORAL 11/03/17 18:00 12/02/17 08:59 11/05/17 17:23 Hydromorphone HCl (Dilaudid) 0.5 mg Q4H PRN IVP Severe Pain (Scale 7-10) 11/03/17 12:15 11/10/17 00:14 Insulin Aspart (NovoLOG) BEFORE MEALS AND HS SUBQ 11/03/17 16:30 12/02/17 06:29 11/05/17 16:16 Insulin Detemir (Levemir) 15 units BEDTIME SUBQ 11/03/17 21:00 12/01/17 20:59 11/04/17 21:12 Ondansetron HCl (Zofran) 4 mg Q6H PRN IVP Nausea & Vomiting 11/03/17 14:00 12/02/17 01:59 11/04/17 17:05 Piperacillin Sod/ Tazobactam Sod 3.375 gm/Sodium Chloride 110 ml @ 27.5 mls/hr Q12HR IVPB 11/03/17 21:00 11/09/17 20:59 11/05/17 10:00 Ranolazine (Ranexa ER 500mg) 500 mg EVERY 12 HOURS ORAL 11/03/17 21:00 12/02/17 08:59 11/05/17 10:01 Tamsulosin HCl (Flomax) 0.4 mg BEDTIME ORAL 11/03/17 21:00 12/03/17 20:59 11/04/17 21:08 Item Value Date Time Bedside Blood Glucose 157 mg/dl H 11/05/17 1630 Bedside Blood Glucose 69 mg/dl L 11/05/17 1130 Bedside Blood Glucose 71 mg/dl 11/05/17 0718 Bedside Blood Glucose 168 mg/dl H 11/04/17 2113 Glucose Level 50 MG/DL L 11/05/17 0625 CHARLEEN GEIGER Nov 08, 2017 06:33
[2017-11-08] MEDS ORDERED: Nateglinide 60mg tab ORAL SCH (06:45)
[2017-11-08] MEDS: Albuterol 90mcg Inhaler 8gm INH SCH (07:25)
[2017-11-08 07:54] LABS: ANION GAP 8 mmol/L (5-15); BASOPHILS % (AUTO) 1.2 % (0.0-2.0); BLOOD UREA NITROGEN 29 mg/dL (7-18); CARBON DIOXIDE 26 MMOL/L (21-32); CHLORIDE 106 MMOL/L (98-107); CREATININE 2.2 MG/DL (0.55-1.30); EOSINOPHILS % (AUTO) 4.3 % (0.0-3.0); HEMATOCRIT 32.4 % (42.0-52.0); HEMOGLOBIN 10.8 G/DL (14.2-18.0); LYMPHOCYTES % (AUTO) 15.9 % (20.0-45.0); MEAN CORPUSCULAR VOLUME 82 FL (80-99); NEUTROPHILS % (AUTO) 70.6 % (45.0-75.0); PLATELET COUNT 246 K/UL (150-450); POTASSIUM 5.2 MMOL/L (3.5-5.1); RED BLOOD COUNT 3.97 M/UL (4.70-6.10); RED CELL DISTRIBUTION WIDTH 14.5 % (11.6-14.8); SODIUM 139 MMOL/L (136-145); WHITE BLOOD COUNT 7.5 K/UL (4.8-10.8)
[2017-11-08 08:58] VITALS: BP 173/70
[2017-11-08] MEDS ORDERED: Metoprolol 25mg tab ORAL SCH (09:00)
[2017-11-08 09:24] VITALS: BP 173/70
[2017-11-08] MEDS: Aspirin EC 81mg tab ORAL SCH (09:24)
[2017-11-08] MEDS: Piperacillin/Tazobactam 3.375 GM in NS 110 ML IVPB SCH (09:29)
--- NOTE | 2017-11-08 10:24 | Pulmonology Progress Note ---
Assessment/Plan Assessment/Plan 1. Renal failure. Renal consult noted.Cr now 2.2; ch dc 2. Septic shock. Resolved 3. Altered mental status. Improved; no longer confused 4. Urinary tract infection. E. coli 5. Hyponatremia. Resolved 6. Malnutrition, moderate. 7. No cholecystitis 8. Diabetes mellitus. 10. Pulm edema; resolved DISCUSSION: DC home on Levemir, Starlix and PO Cipro Subjective Interval Events: Doing well Constitutional: Reports: no symptoms HEENT: Repors: no symptoms Respiratory: Reports: no symptoms Cardiovascular: Reports: no symptoms Gastrointestinal/Abdominal: Reports: no symptoms Allergies: Coded Allergies: No Known Allergies (Unverified , 11/01/17) Objective Last 24 Hour Vital Signs Date Time Temp Pulse Resp B/P (MAP) Pulse Ox O2 Delivery O2 Flow Rate FiO2 11/08/17 09:24 69 173/70 11/08/17 08:58 98.3 69 20 173/70 98 11/08/17 07:26 97 Room Air 21 11/08/17 07:26 Room Air 21 11/08/17 07:25 91 18 97 Room Air 21 11/08/17 05:35 Room Air 11/08/17 05:34 Room Air 11/08/17 04:50 98.9 69 18 152/55 96 11/08/17 00:07 99.1 62 18 158/67 98 11/07/17 20:36 98.5 66 20 172/71 97 11/07/17 20:24 68 154/75 11/07/17 19:00 100 Nasal Cannula 3.0 32 11/07/17 19:00 Nasal Cannula 3.0 32 11/07/17 16:00 98.7 63 20 162/69 98 11/07/17 12:00 97.9 64 19 150/66 96 Intake and Output 11/07/17 11/08/17 19:00 07:00 Intake Total 820 ml 600 ml Balance 820 ml 600 ml Intake Oral 820 ml 600 ml # Voids 2 2 # Bowel Movements 1 General Appearance: no acute distress HEENT: normocephalic Respiratory/Chest: chest wall non-tender, lungs clear Cardiovascular: normal peripheral pulses, normal rate Abdomen: normal bowel sounds Laboratory Tests 11/08/17 06:14: White Blood Count 7.5, Red Blood Count 3.97L, Hemoglobin 10.8L, Hematocrit 32.4L , Mean Corpuscular Volume 82, Mean Corpuscular Hemoglobin 27.1, Mean Corpuscular Hemoglobin Concent 33.2, Red Cell Distribution Width 14.5, Platelet Count 246, Mean Platelet Volume 8.9, Neutrophils (%) (Auto) 70.6, Lymphocytes (% ) (Auto) 15.9L, Monocytes (%) (Auto) 8.0, Eosinophils (%) (Auto) 4.3H, Basophils (%) (Auto) 1.2, Sodium Level 139, Potassium Level 5.2H, Chloride Level 106, Carbon Dioxide Level 26, Anion Gap 8, Blood Urea Nitrogen 29H, Creatinine 2.2H, Estimat Glomerular Filtration Rate , Glucose Level 167H, Calcium Level 8.0L Current Medications Medications (Trade) Dose Ordered Sig/Marie Route PRN Reason Start Time Stop Time Status Last Admin Dose Admin Acetaminophen/ Codeine Phosphate (Tylenol #3) 2 tab Q6H PRN ORAL Moderate Pain (Scale 4-6) 11/07/17 04:00 11/08/17 21:59 Albuterol Sulfate (Proventil MDI) 1 puff Q6HRT INH 11/07/17 01:00 12/07/17 00:59 11/08/17 07:25 Aspirin (Ecotrin) 81 mg DAILY ORAL 11/07/17 09:00 12/02/17 08:59 11/08/17 09:24 Atorvastatin Calcium (Lipitor) 80 mg QHS ORAL 11/07/17 21:00 12/02/17 20:59 11/07/17 20:23 Clopidogrel Bisulfate (Plavix) 75 mg DAILY ORAL 11/07/17 09:00 12/02/17 08:59 11/08/17 09:24 Dextrose (Dextrose 50%) STAT PRN IV Hypoglycemia 11/07/17 13:30 12/01/17 13:29 Gabapentin (Neurontin) 100 mg BID ORAL 11/07/17 09:00 12/07/17 08:59 11/08/17 09:24 Hydromorphone HCl (Dilaudid) 0.5 mg Q4H PRN IVP Severe Pain (Scale 7-10) 11/07/17 00:15 11/10/17 00:14 Insulin Aspart (NovoLOG) BEFORE MEALS AND HS SUBQ 11/06/17 22:30 12/06/17 22:29 11/08/17 06:31 Insulin Detemir (Levemir) 10 units BEDTIME SUBQ 11/08/17 21:00 12/08/17 20:59 Metoprolol Tartrate (Lopressor) 50 mg Q12HR ORAL 11/08/17 09:00 12/08/17 08:59 11/08/17 09:24 Nateglinide (Starlix) 60 mg TIAC ORAL 11/08/17 06:45 12/08/17 06:44 Ondansetron HCl (Zofran) 4 mg Q6H PRN IVP Nausea & Vomiting 11/07/17 02:00 12/02/17 01:59 Piperacillin Sod/ Tazobactam Sod 3.375 gm/Sodium Chloride 110 ml @ 27.5 mls/hr Q12HR IVPB 11/07/17 09:00 11/14/17 08:59 11/08/17 09:29 Tamsulosin HCl (Flomax) 0.4 mg BEDTIME ORAL 11/07/17 21:00 12/03/17 20:59 11/07/17 20:22 Robles Jones MD Nov 08, 2017 10:24
[2017-11-08] MEDS ORDERED: CIPRO500 MG/51 PO (10:27)
[2017-11-08] MEDS ORDERED: LOPRESSOR25 M1 ORAL (10:27)
[2017-11-08] MEDS ORDERED: Tubing IV Secondary IV ONE ×2 (11:29)
[2017-11-08] MEDS ORDERED: NS 275ml ONE (11:29)
[2017-11-08] MEDS ORDERED: Levemir Flexpen SUBQ SCH (21:00)
--- NOTE | 2017-11-09 02:15 | Progress Note ---
DATE: 11/08/2017 CARDIOLOGY PROGRESS NOTE SUBJECTIVE: The patient is without distress. PHYSICAL EXAMINATION: VITAL SIGNS: Blood pressure parameters remain on the high side 152/55 to 173/70, heart rate 69, respiratory rate 18, and afebrile. NECK: Supple. LUNGS: Clear. CARDIAC: Regular. Normal S1, S2. ABDOMEN: Soft. EXTREMITIES: No edema. IMPRESSION: 1. Urinary tract infection with sepsis and shock complicated by acute renal failure and pulmonary edema due to acute myocardial ischemia, all resolved. 2. Hypertensive heart disease now with rising blood pressure trend, off most of his baseline antihypertensive regimen. 3. Hyponatremia, corrected. 4. Protein-calorie malnutrition, expected to improve. PLANS: 1. Complete antibiotics at home in oral form. 2. Titrate diabetic med regimen per Dr. Jones. 3. Maintain beta-blockade and resume prior antihypertensives with outpatient monitoring of blood pressure parameters and volume status. 4. No role for diuretic therapy at this time. Gilmer Downing M.D. DR: CRISTIAN JOB#: [id number] CC:
--- NOTE | 2017-11-10 15:08 | Discharge Summary ---
Discharge Summary Hospital Course Date of Admission Nov 01, 2017 at 13:30 Date of Discharge Nov 08, 2017 at 11:30 Admitting Diagnosis Septic Shock DERRICK Curtis is a 77 year old male who was admitted on Nov 01, 2017 at 13:30 for Septick Shock Hospital Course dc summary #[id number] Discharge Medications New Medications: Ciprofloxacin (Cipro) 500 Mg/5 Ml Jackeline.mc.rec 500 MG PO DAILY for 5 Days, % Metoprolol Tartrate (Metoprolol Tartrate) 25 Mg Tablet 50 MG ORAL Q12HR for 30 Days, TAB Continued Medications: Acetaminophen With Codeine (T#3) (Tylenol #3 Tab*) Y Tab 2 TAB ORAL Q6H PRN for For Pain, TAB Albuterol Sulfate* (Proair Hfa*) 8.5 Gm Hfa.aer.ad 1 PUFF INH Q6H, #8.5 GM 0 Refills Aspirin Ec* (Aspirin Ec*) 81 Mg Tablet.dr 81 MG ORAL DAILY, TAB Atorvastatin (Lipitor) 80 Mg Tablet 80 MG ORAL DAILY, TAB 0 Refills Clopidogrel* (Clopidogrel*) 75 Mg Tablet 75 MG ORAL DAILY, TAB Gabapentin* (Gabapentin*) 100 Mg Capsule 100 MG ORAL BID, CAP Insulin Glargine (Lantus) 100 Unit/1 Ml Insuln.pen 15 SUBQ BEDTIME, #1 EA 0 Refills Discontinued Medications: Ranolazine* (Ranexa*) 500 Mg Tab.er.12h 500 MG ORAL EVERY 12 HOURS, #60 TAB 0 Refills Discharge Condition Upon Discharge: stable Discharge Disposition Patient was discharged to Home (01) Discharge Diagnoses: Discharge Instructions Discharge Instructions Special Instructions I have been assigned to complete a D/C Summary on this account. I was not involved in the patient management Cassie Becker NP ([place]) Nov 10, 2017 15:08
--- NOTE | 2017-11-11 03:30 | Discharge Summary 2 SIG ---
DATE OF ADMISSION: 11/01/2017 DATE OF DISCHARGE: 11/08/2017 REASON FOR ADMISSION: 77-year-old male presented with altered mental status and lethargy. According to family, the patient was seen by primary care physician two days ago and was started on antibiotics and Flomax for possible prostate infection. That morning, found the patient to be more confused and lethargic and slow to respond. Subsequently, she called paramedics. The patient was minimally arousable to physical stimuli when paramedics arrived. After knocking, he became more awake. The patient is on Cardene for pain management. The patient apparently vomited two times earlier that morning. Initially denied chest pain, however, family reported the patient complained to them about chest heaviness in the chest area. No report of shortness of breath. The patient had penile prosthesis for erectile dysfunction. No difficulty with urination. Upon evaluation in the emergency room, blood pressure was 72/42. WBC -16.8, hemoglobin-9.1, and hematocrit -28.2. Sodium -128. Lactic acid - 1.8. BUN -43, creatinine -3.1. Troponin was negative. Pro BNP -3043. Urinalysis showed +2 leukocyte esterase and few bacteria. CT of the head revealed no acute intracranial pathology. Chest x-ray revealed pulmonary congestion. EKG revealed sinus bradycardia with nonspecific ST-T wave changes, but no acute ischemic changes. Central line was placed. The patient started on pressors and transferred to ICU for further management. ADMITTING DIAGNOSES: 1. Septic shock. 2. Hypotension. 3. Renal failure. 4. Altered mental status 5. Hyponatremia. 6. Possible urinary tract infection. 7. Moderate protein-calorie malnutrition. 8. Diabetes out of control. 9. Anemia. HOSPITAL COURSE: The patient admitted. The patient was in ICU on pressor for hemodynamic support. When blood pressure was stable, pressors were discontinued. The patient was moved out of intensive care unit. The patient was on the BiPAP to keep pulse oximetry above 92%. Pulmonary toilet provided as needed. Able to be weaned from the BiPAP and placed on the supplemental oxygen via nasal cannula. The patient started on empiric antibiotics. Infectious Disease specialist followed. Urine culture negative, however, the patient probably had urinary tract infection since the patient was already on antibiotic when urine culture was taken. Blood culture negative. Influenza screen test negative. Infectious Disease specialist closely followed. Abdominal pelvis CT revealed findings of gallbladder wall edema and pericholecystic stranding without evidence of cholelithiasis. Findings were concerning for acute acalculous cholecystitis.However, CT of the abdomen and pelvis was done without contrast due to the acute renal failure. Subsequently, the patient undergone abdominal ultrasound, which revealed no evidence of gallstones. Borderline gallbladder wall thickening of uncertain significance. Dilated common bile duct. Downstream obstruction was not excludable. The patient subsequently had a HIDA scan , which showed no evidence of cystic duct or common bile duct obstruction. Surgeon closely followed the patient for possible surgical intervention. Leukocytosis resolved, the patient afebrile, abdominal exam was benign. LFTs stable. No abdominal pain. Per surgery conclusion, U unlikely etiology of acalculous cholecystitis, given findings and exam, no acute surgical intervention was necessary. The patient was started on the diet, ambulated ,and surgeon cleared for discharge. Cardiology closely followed the patient. Echocardiogram revealed preserved ejection fraction of 55% to 60% and right ventricular systolic pressure of 44 consistent with mild pulmonary hypertension. The patient also had acute diastolic congestive heart failure , which was improving. The last chest x-ray showed significant improvement in the interstitial edema with very mild residual left. When blood pressure stabilized, beta-giovanna added, but most of antihypertensive medications were held. Plaster Die Maker seen the patient for diabetes out of control, placed the patient on Levemir and Starlix as well sliding scale of insulin on as needed basis. Levemir dose was up titrated. Blood sugar improved. The patient noted to have hyponatremia, which resolved with IV hydration. Piler closely followed. Renal parameters and electrolytes were closely monitored. Electrolytes replaced as needed. Prior to discharge, BUN from initial 43 down to 29 and creatinine from 3.1 down to 2.2. The patient likely had acute on chronic renal disease. Urologist followed the patient. The patient with history of penile prosthesis. According to urologist, the patient had no evidence of erosion or infection and his penile prosthesis appeared to be intact. There was no condition that required emergent removal of prosthesis. Urologist recommended to continue IV antibiotics as deemed appropriate by Infectious Disease specialist. The patient started on Flomax as per Urology in order to help with voiding. Tellze catheter was discontinued on 11/07/2017, and the patient was able to void without difficulties. Dietary recommendation implemented. Hemoglobin and hematocrit were closely monitored, remained at baseline. Mental status returned to baseline as he clinically improved and stabilized. The patient was stable for discharge back home. FINAL DIAGNOSES: 1. Acute renal failure, secondary to acute tubular necrosis. 2. Sepsis with shock-resolved. 3. Altered mental status due to acute toxic metabolic encephalopathy, secondary to infection and septic shock ,-resolved. 4. Probably urinary tract infection. 5. Hyponatremia, resolved. 6. Diabetes, out of control. 7. Pulmonary edema,- resolved. 8. Moderate malnutrition. 9. Hypertensive heart disease. 10. Anemia of renal disease. 11. Acute diastolic congestive heart failure, resolved. 12. Dehydration. DISCHARGE MEDICATIONS: See medication reconciliation list. DISCHARGE INSTRUCTIONS: The patient discharged home. Follow up with primary medical doctor next week. Robles Jones M.D. I have been assigned to dictate discharge summary on this account and I was not involved in the patient's management. Cassie DugganHospital For Special Surgerydina NAbdelrahman DR: CESAR JOB#: [id number] CC: JANNET
== END 2017-11-08 11:30 | disposition home or self-care (01) | DRG 871 ==
LOC: EDBD 11:41 → EMR 12:30 → ICU 13:30 → EDBEDREQ 17:46 → 2E 11-03 12:55 → 3E 11-06 20:40
DX: A41.9 Sepsis, unspecified organism (principal); R65.21 Severe sepsis with septic shock; N17.0 Acute kidney failure with tubular necrosis; I50.31 Acute diastolic (congestive) heart failure; K81.0 Acute cholecystitis; E44.0 Moderate protein-calorie malnutrition; G92 Toxic encephalopathy; N39.0 Urinary tract infection, site not specified; E87.1 Hypo-osmolality and hyponatremia; J98.11 Atelectasis; E87.2 Acidosis; E87.8 Other disorders of electrolyte and fluid balance, not elsewhere classified; E86.0 Dehydration; I11.0 Hypertensive heart disease with heart failure; E83.51 Hypocalcemia; E11.9 Type 2 diabetes mellitus without complications; E78.5 Hyperlipidemia, unspecified; D72.829 Elevated white blood cell count, unspecified; D63.8 Anemia in other chronic diseases classified elsewhere; N52.9 Male erectile dysfunction, unspecified; I25.5 Ischemic cardiomyopathy; I20.8 Other forms of angina pectoris; R10.84 Generalized abdominal pain; K57.30 Diverticulosis of large intestine without perforation or abscess without bleeding; Z68.29 Body mass index [BMI] 29.0-29.9, adult; Z79.4 Long term (current) use of insulin; Z79.82 Long term (current) use of aspirin; Z96.89 Presence of other specified functional implants; Z98.890 Other specified postprocedural states
CPT/HCPCS: 36415; 36600; 51702; 70450; 71045; 74176; 76700; 78266; 80048; 80053; 81003; 82330; 82550; 82553; 82803; 82962; 83036; 83605; 83690; 83880; 84484; 85007; 85025; 86710; 87040; 87081; 87086; 93005; 93306; 94640; 94664; 94760; J1815; J2310; J2405; S5561

== ENCOUNTER 2018-06-04 07:39 | Emergency (ER) | payer OTHER ==
[~2018-06-04] VITALS: Ht 167.6 cm; Wt 72.6 kg
[~2018-06-04 07:39] MED LIST: ACETAMINOPHEN-1 EAC1 ORAL; ADALAT20 MG ORAL; AMLODIPINE BESYL5 MG ORAL; ASPIRIN EC81 MG ORAL; CIPRO500 MG/51 PO; CIPROFLOXACIN500 M2 ORAL; CLOPIDOGREL75 MG ORAL; GABAPENTIN100 MG ORAL; HYDROCHLOROTH12.5 M2 ORAL; LANTUS SOL100 UNIT/1 SUBQ; LIPITOR80 MG ORAL; LISINOPRIL40 MG ORAL; LOPRESSOR25 M1 ORAL; METFORMIN HCL1000 M1 ORAL; METOPROLOL TART50 M1 ORAL; OMEPRAZOLE40 M1 ORAL; PANTOPRAZOLE SO40 MG ORAL; PROAIR HFA8.5 GM INH; RANEXA500 MG ORAL; TAMSULOSIN HCL0.4 MG ORAL
[2018-06-04] MEDS ORDERED: UNOBMED (07:51)
[2018-06-04 07:59] VITALS: BP 163/80
--- NOTE | 2018-06-04 08:27 | Emergency Room Report ---
History of Present Illness General Chief Complaint: General Complaint Source: Patient Present Illness HPI This patient c/o insulin needle tip breaking off and remaining in abdominal wall. 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 No other issues or complaints. Allergies: Coded Allergies: No Known Allergies (Unverified , 11/01/17) Nursing Documentation-[facility] Past Medical History: No History, Except For Hx Cardiac Problems: Yes Hx Hypertension: Yes Hx Pacemaker: No Hx Asthma: No Hx COPD: No Hx Diabetes: Yes Hx Cancer: No Hx Gastrointestinal Problems: Yes Hx Dialysis: No History Of Psychiatric Problem: No Hx Neurological Problems: No Hx Cerebrovascular Accident: No Hx Seizures: No Review of Systems Constitutional: Reports: no symptoms Eye: Reports: no symptoms ENT: Reports: no symptoms Respiratory: Reports: no symptoms Cardiovascular: Reports: no symptoms Neurological: Reports: no symptoms All Other Systems: negative except mentioned in HPI Physical Exam Vital Signs Date Time Temp Pulse Resp B/P (MAP) Pulse Ox O2 Delivery O2 Flow Rate FiO2 06/04/18 07:47 98.1 88 16 163/80 95 Room Air 98.1 General Appearance: well appearing, no apparent distress Head: normocephalic, atraumatic ENT: hearing grossly normal, normal voice Neck: full range of motion, supple Respiratory: no respiratory distress, speaking full sentences Gastrointestinal: other - slight erythema just left of umbilicus, no entry wound visible, no fb palpable Musculoskeletal: no calf tenderness Neurologic: alert, normal gait Psychiatric: mood/affect normal Skin: no rash Medical Decision Making Diagnostic Impression: Primary Impression: Foreign body (FB) in soft tissue ER Course I explained to patient that the best thing that can be done is local heat and hope needle tip comes to surface. Alternatively could remain. XR not going to be helpful. Last Vital Signs Date Time Temp Pulse Resp B/P (MAP) Pulse Ox O2 Delivery O2 Flow Rate FiO2 06/04/18 07:59 98.1 16 163/80 95 Room Air 98.1 06/04/18 07:47 88 Disposition: HOME, SELF-CARE Condition: Stable Patient Instructions: Swallowed Foreign Body, Adult Kemal Singh M.D. Jun 04, 2018 08:27
--- NOTE | 2018-06-04 08:59 | Diagnostic Imaging Report ---
Indication: Abdominal pain Comparison: None Single view of the abdomen obtained Findings: Bowel gas pattern is nonspecific. There is moderate stool retention in the colon. The bones are osteopenic. Aortoiliac calcifications are present consistent with atherosclerotic disease. Impression: No acute findings
[2018-06-04 09:43] VITALS: BP 163/80
== END 2018-06-04 09:28 | disposition home or self-care (01) ==
LOC: EMR 08:34
DX: S30.851A Superficial foreign body of abdominal wall, initial encounter (principal); W45.8XXA Other foreign body or object entering through skin, initial encounter; E11.9 Type 2 diabetes mellitus without complications; I10 Essential (primary) hypertension; Z79.4 Long term (current) use of insulin; Y93.9 Activity, unspecified; Y92.9 Unspecified place or not applicable; Y99.9 Unspecified external cause status
CPT/HCPCS: 74018; 99283